=== PATIENT | male | born 1965 | race Caucasian/White ===

== ENCOUNTER → 2016-07-09 | Outpatient (CLI) | payer BC ==
[~2016-07-09] MED LIST: ALLO100T PO; ASPI81TA28 PO; CARV25TA2 PO; CLOP1TAB15 PO; ERGO500037 PO; FENO48TA9 PO; HYDR25TA4 PO; HYG/25 PO; IBUP-1427 PO; INDO-24 PO; INSDGI SC; ISOS30TA3 PO; LEVO100T7 PO; NITR0.4S UT; NVLGI SC; OXYC-57 PO; ROSU40TA PO
[2016-07-09 17:42] LABS: HEMATOCRIT 36.2 % (42-52); MEAN CORPUSCULAR HEMOGLOBIN 29.7 pg (25-34); MEAN CORPUSCULAR HGB CONC 34.5 g/dl (32-36); MEAN PLATELET VOLUME 10.5 fL (7.4-10.4); PLATELET COUNT 161 K/uL (130-400); RED BLOOD COUNT 4.21 M/uL (4.7-6.1); WHITE BLOOD COUNT 5.17 K/uL (4.8-10.8)
[2016-07-09 17:47] LABS: URINE APPEARANCE CLEAR (CLEAR); URINE BILIRUBIN NEG (NEG); URINE COLOR YELLOW; URINE NITRITE NEG (NEG); URINE SPECIFIC GRAVITY 1.021 (1.000-1.030); UROBILINOGEN NEG (NEG)
[2016-07-09 17:59] LABS: MANUAL MICROSCOPIC REQUIRED? NO; REVIEW REQ? NO
[2016-07-09 18:08] LABS: BLOOD UREA NITROGEN 29 mg/dl (7-18); GLUCOSE 276 mg/dl (70-99)
[2016-07-09 18:09] LABS: ALT/SGPT 33 U/L (12-78); BUN/CREATININE RATIO 13.6 (10-20); CALCIUM 8.9 mg/dl (8.5-10.1); CARBON DIOXIDE 28 mmol/L (21-32); CHLORIDE 103 mmol/L (98-107); POTASSIUM 3.5 mmol/L (3.5-5.1); SODIUM 142 mmol/L (136-145); URIC ACID 7.5 mg/dl (2.6-7.2)
[2016-07-09 18:12] LABS: ALB/GLOB RATIO 1.1 (0.9-2); ALKALINE PHOSPHATASE 176 U/L (45-117); AST/SGOT 29 U/L (15-37); URINE PROTIEN/CREAT RATIO 0.6 (0-0.2); URINE TOTAL PROTEIN 53.7 mg/dl (0-11.9)
== END | disposition home or self-care (01) ==
LOC: C.LAB1850 17:06
PROVIDERS: ATTEND Internal Medicine Nephrology
DX: I12.9 Hypertensive chronic kidney disease with stage 1 through stage 4 chronic kidney disease, or unspecified chronic kidney disease (principal); N18.3 Chronic kidney disease, stage 3 (moderate); R80.9 Proteinuria, unspecified; E55.9 Vitamin D deficiency, unspecified; D64.9 Anemia, unspecified; N25.81 Secondary hyperparathyroidism of renal origin

== ENCOUNTER 2016-09-23 12:47 | Observation (INO) | payer BC, OTHER ==
[2016-09-23] VITALS (11 sets, daily range): BP systolic 112–146; BP diastolic 60–83; PULSE 62–72; TEMP 36.6–36.8; O2SAT 95–99; BMI 32.6
[~2016-09-23] VITALS: Ht 182.9 cm; Wt 104.8 kg
[~2016-09-23 12:47] MED LIST changes: -ERGO500037 PO; -FENO48TA9 PO; -HYG/25 PO; -INDO-24 PO; -ISOS30TA3 PO; -LEVO100T7 PO; -NITR0.4S UT; -OXYC-57 PO
[2016-09-23 13:22] LABS: HEMATOCRIT 39.7 % (42-52); MEAN CELL VOLUME 85.2 fL (80-100); MEAN CORPUSCULAR HEMOGLOBIN 29.8 pg (25-34); MEAN PLATELET VOLUME 10.5 fL (7.4-10.4); PLATELET COUNT 217 K/uL (130-400); RED BLOOD COUNT 4.66 M/uL (4.7-6.1); WHITE BLOOD COUNT 7.16 K/uL (4.8-10.8)
[2016-09-23 13:40] LABS: BUN/CREATININE RATIO 14.6 (10-20); CALCIUM 9.7 mg/dl (8.5-10.1); POTASSIUM 3.8 mmol/L (3.5-5.1)
[2016-09-23 13:45] LABS: CKMB/CK RATIO 5.2 (0-3.0)
--- NOTE | 2016-09-23 13:45 | DIAGNOSTIC IMAGING REPORT ---
CHEST ONE VIEW PORTABLE HISTORY: failed stress test COMPARISON: Chest 11/05/2010. FINDINGS: The lungs are clear. Cardiac silhouette is normal in size. No pleural effusions. No pneumothorax. IMPRESSION: No acute process. Electronically signed by: Leeroy Walters M.D. 09/23/2016 1:43 PM Dictated Date/Time: 09/23/2016 1:43 PM
[2016-09-23] MEDS ORDERED: FENTANYL CITRATE INJ 50 MCG/1 ML 2 ML VIAL ONE (13:54)
[2016-09-23] MEDS ORDERED: NiCARDipine HCL INJ 2.5 MG/ML 10 ML AMP ONE (13:54)
[2016-09-23] MEDS ORDERED: HEPARIN SOD (PORCINE) 1000 UNIT/ML 10 ML VIAL ONE (13:54)
[2016-09-23] MEDS ORDERED: NITROGLYCERIN/D5W 100MCG/ML 20ML SYR ONE (13:55)
[2016-09-23] MEDS ORDERED: MIDAZOLAM HCL 1 MG/ML 2ML VIAL ONE (13:55)
--- NOTE | 2016-09-23 14:15 | Procedure Note ---
Pre-Mod Sedation Assessment General Date of Moderate Sedation: Sep 23, 2016. Vital Signs: Vital Signs Past 12 Hours Date Time Temp Pulse Resp B/P Pulse Ox O2 Delivery O2 Flow Rate FiO2 09/23/16 13:45 66 09/23/16 12:56 36.8 70 20 145/78 98 Room Air Review Cardiovascular: regular rate, rhythm, no edema, no gallop Abdomen: normal bowel sounds, non tender Lungs: chest non-tender, lungs clear Pre-Sedation Airway Assessment Oral Cavity: WNL Able to Visualize Vocal Cords: Yes Short Thick Neck: No Hx of Sleep Apnea: No Smoking Status: Never Smoker Mallampati Classification: Class II ASA Classification: Class II Procedure Planning Contraindications-for Mod Sed: None Notes The planned sedation has been discussed with the patient and consent obtained. I have identified the patient, determined the appropriateness of sedation and have assessed the patient immediately prior to the procedure. All medicine(s) and interventions are by my order.
[2016-09-23] MEDS ORDERED: CLOPIDOGREL BISULFATE 300 MG TAB PO ONE (15:21)
[2016-09-23] MEDS ORDERED: ONDANSETRON INJ 2 MG/ML 2 ML VIAL IV PRN (15:45)
[2016-09-23] MEDS ORDERED: ACETAMINOPHEN 325 MG TAB PO PRN (15:45)
[2016-09-23] MEDS: SODIUM CHLORIDE 0.9% 1000ML 1,000 ML IV SCH ×2 (15:45→23:38)
[2016-09-23] MEDS ORDERED: GLUCAGON FOR INJ 1 MG VIAL SQ PRN (16:30)
[2016-09-23] MEDS ORDERED: GLUCOSE 40% GEL 15 GM TUBE PO PRN (16:30)
[2016-09-23] MEDS ORDERED: DEXTROSE 50% 50 ML SYR IV PRN (16:30)
[2016-09-23] MEDS ORDERED: GLUCOSE 10 TABS/TUBE PO PRN (16:30)
[2016-09-23] MEDS ORDERED: NURSING VERBAL MED ORDER ONE (17:45)
[2016-09-23] MEDS: INSULIN ASPART 100 UNITS/ML 3 ML PEN SC SCH (18:57)
[2016-09-23] MEDS ORDERED: IV FLUIDS COMPLETED PRN (20:00)
[2016-09-23] MEDS: CARVEDILOL 25 MG TAB PO SCH (20:52)
[2016-09-23] MEDS ORDERED: INSULIN GLARGINE SOLOSTAR 100 UNITS/ML 3 ML PEN SC SCH (21:00)
[2016-09-23] MEDS ORDERED: ROSUVASTATIN CALCIUM 20 MG TAB PO SCH (21:00)
--- NOTE | 2016-09-23 22:17 | Procedure Note ---
Post-Mod Sedation Assessment General Date of Moderate Sedation Sep 23, 2016. Vital Signs: Vital Signs Past 12 Hours Date Time Temp Pulse Resp B/P Pulse Ox O2 Delivery O2 Flow Rate FiO2 09/23/16 13:45 66 09/23/16 12:56 36.8 70 20 145/78 98 Room Air Review - Discharge Criteria Vital Signs Stable: Yes Alert/Oriented/Conversant: Yes Returned to Baseline Mental St: Yes Nausea Absent/Minimal: Yes Pain/Discomfort/Absent/Minimal: Yes Normal/Baseline Respirations: Yes Active Bleeding?: No Pt Received D/C Instructions: N/A Prescriptions Given: None Specific Proced. D/C Criteria Distal Pulses Present (Cardiac: Yes Groin site assessed-Card Cath: No Voided Prior To Discharge: No Discharged Patients Adult Escort/Transportation: Yes
--- NOTE | 2016-09-23 22:58 | Cardiac Catheterization ---
Procedure Note Procedure Date Sep 23, 2016. Pre-Procedure Diagnosis Angina, Positive Stress Test AUC Score 8 Post-Procedure Diagnosis Severe CAD Procedure(s) Performed Coronary Angiography, Left Heart Cath Accounting Professional Dr. Pringle Pattern Checker(s) Brook Estimated Blood Loss 15 Medication(s) Fentanyl, Heparin, Nitroglycerin, Versed, Lidocaine 1% Summary of Findings Indication: Accelerating angina/Positive stress test suggestive of possible multivessel disease Access: 6Fr Right Radial Artery Catheters: Grzegorz, AR1 guide Findings: LM - Luminal irregularities LAD - Proximal diffuse 30-40% disease, stent in mid segment patent with minimal ISR, distal vessel mild diffuse disease and tapers to apex. Circumflex - Complete/subtotal proximal occlusion at the take-off of OM1. TIMI1 flow antegrade past stenosis into underfilled bifurcating OM2. OM1 is small vessel with subtotal occlusion proximally RCA - Dominant, 20-30% proximal, patent mid segment stent with 20-30% ISR. Mild diffuse distal segment disease. Small PDA with 30% ostial disease. R-PAV with 90% stenosis prior to take-off of PLB1. Right to left collaterals to OMs via R-PLBs LVEDP - 12 -- PCI -- Both R-PAV and potentially circumflex HEALTH AND SAFETY DIRECTOR appeared potentially amenable to PCI. Decision made to proceed with R-PAV PCI only today in order to avoid excessive contrast with CKD. Antithrombotic therapy: Heparin Procedure: RCA cannulated with AR1 guide BMW wire passed across lesion into distal PLB PAV lesion predilated with 2.0 compliant balloon Dilated lesion stented with 2.25 x 18 Resolute DONNA Stent post-dilated with 2.5 noncompliant balloon IC vasodilators administered for spasm Post procedure BLADIMIR 3 flow, stent well expanded with minimal residual stenosis and no apparent cardiac complications. Arterial Closure: TR Band Summary: 1. Severe 2 vessel coronary artery disease - Complete/subtotal occlusion of proximal circumflex - 90% stenosis in R-PAV 2. Normal intracardiac filling pressure 3. Successful PCI of R-PAV with 2.25 x 18 Resolute DONNA Recommendations: Admit to PCU for monitoring overnight. Loaded with plavix in the canvas shop laborer Continue dual-antiplatelet therapy with ASA/Plavix for 1 year Fluids overnight. Follow-up SCr in AM Continue home antihypertensives, insulin and high-dose statin R-PAV stented today as thought to be less complex lesion and as result likely to require less contrast after diagnostic angiograms today. There appears to be a small channel across the proximal circumflex lesion and will bring back in 1-2 weeks for staged PCI of circumflex lesion. Hemodynamics Rest Ao: 106/74/88 Final Ao: 100/70/83 LV: 119/12 Recommendations PCI without planned CABG Specimens None Radiation Exposure (mGy) 3734 Contrast (mls) 135 Visi Fluids (cc crystalloids) 111 NS Drains none Anesthesia moderate. Start 14:27 - End 15:30 Procedural Complication(s) None Disposition PCU ACC Data Cardiac Status Clinical evaluation leading to the procedure CAD Presntation: Unstable angina, Positive Stress Test Anginal Classification: CCS III Heart Failure: No, NYHA Class: CCS I Cardiogenic Shock w/in 24Hrs: No Cardiac Arrest w/in 24Hrs: No Imaging studies past 6 months: Yes Stress studies past 6 months: Yes Standard Exercise Stress Test: No Stress Echocardiogram: Yes - Positive, Risk/Extent of Ischemia (High) Stress Testing w/SPECT MPI: No Cardiac CTA: No Coronary Anatomy Dominant: Right Left Main (% Stenosis): Normal LAD (% Stenosis): Proximal (30-40) Circumflex (% Stenosis): Proximal (99%) RCA (% Stenosis): Proximal (20-30), Mid (20-30) R PDA (% Stenosis): Ostial (20) R PL2 (% Stenosis): Proximal (90) Diagnostic Physician's Name: Yunior Pringle MD Status: Elective Closure Device Percutaneous Entry Location: Radial Closure Device: Radial Band Recommendations: PCI without planned CABG PCI Indication: Unstable Angina, + Stress Test Lesion Segment Name: R-PAV Culprit Artery: Yes Stenosis Prior to Rx (%): 90 Chronic Total Occlusion: No IVUS: No FFR: No Pre-Procedure BLADIMIR Flow: 3 Previously Treated Lesion: No Lesion Complexity: Non-High/Non-C Lesion Length (mm): 15 Thrombus Present: No Bifurcation Lesion: Yes Guidewire Across Lesion: Yes Guidewire: Stenosis Post-Procedure (%): 0 Post-Procedure BLADIMIR Flow: 3 Device(s) Deployed: Yes Intraprocedure Events Significant Dissection: No Perforation: No
--- NOTE | 2016-09-23 22:59 | History & Physical Bridge Note ---
H&P Re-Evaluation Bridge Note: I have examined the patient, reviewed the History & Physical and in the interval since the performance of the History & Physical I have noted the following changes of clinical significance: No changes noted
[2016-09-23] MEDS ORDERED: CLOP1TAB15 PO (23:18)
[2016-09-23] MEDS ORDERED: ISOS30TA3 PO (23:18)
[2016-09-24 00:01] VITALS: O2SAT 97
[2016-09-24 04:33] VITALS: BP 107/67; PULSE 59; TEMP 36.7; O2SAT 95
[2016-09-24 05:36] LABS: BASO % 0.6 %; BASO ABS # 0.03 K/uL (0-0.2); COMPLETE YES; EOS % 1.7 %; HEMATOCRIT 35.4 % (42-52); IG% 0.4 %; LYMPH % 28.8 %; LYMPH ABS # 1.54 K/uL (1.2-3.4); MEAN CELL VOLUME 86.6 fL (80-100); MEAN CORPUSCULAR HEMOGLOBIN 29.3 pg (25-34); MEAN CORPUSCULAR HGB CONC 33.9 g/dl (32-36); MONO % 6.5 %; PLATELET COUNT 168 K/uL (130-400); RED BLOOD COUNT 4.09 M/uL (4.7-6.1); WHITE BLOOD COUNT 5.35 K/uL (4.8-10.8)
[2016-09-24 06:04] LABS: BUN/CREATININE RATIO 13.9 (10-20); CALCIUM 8.4 mg/dl (8.5-10.1); CREATININE 1.9 mg/dl (0.60-1.40); POTASSIUM 3.5 mmol/L (3.5-5.1)
[2016-09-24] MEDS: INSULIN ASPART 100 UNITS/ML 3 ML PEN SC SCH ×2 (07:40→11:00)
[2016-09-24] MEDS: CARVEDILOL 25 MG TAB PO SCH (07:42)
[2016-09-24 08:12] VITALS: BP 111/65; PULSE 59; TEMP 36.5; O2SAT 95
[2016-09-24] MEDS ORDERED: ASPIRIN 81 MG ECTAB PO SCH (09:00)
[2016-09-24] MEDS ORDERED: ALLOPURINOL 100 MG TAB PO SCH (09:00)
[2016-09-24] MEDS ORDERED: CLOPIDOGREL BISULFATE 75 MG TAB PO SCH (09:00)
--- NOTE | 2016-09-24 09:30 | Discharge Instructions ---
Discharge Instructions Procedure Procedure Date: Sep 23, 2016. Reason for Visit: CAD. Discharge Discharge Date: Sep 23, 2016. Discharge Diagnosis: Coronary Artery Disease Last Recorded Wt (Kilograms): 109.000 Anesthesia Post Anesthesia Instructions: If you have had General Anesthesia or IV Sedation: * Do not drive today. * Resume driving when surgeon permits. * Do not make important decisions or sign legal documents today. * Call surgeon for: 1. Temperature elevations greater than 101 degrees F. 2. Uncontrollable pain. 3. Excessive bleeding. 4. Persistent nausea and vomiting. 5. Medication intolerance (nausea, vomiting or rash). * For nausea and vomiting use only clear liquids such as: tea, soda, bouillon until nausea subsides, then gradually increase diet as tolerated. * If you have any concerns or questions, call your surgeon's office. If physician is unavailable and it is an emergency, call 911 or go to the nearest emergency room. Instructions Activity Recommendations: limitations as noted below Recommended Home Diet: resume previous diet Allergies: Coded Allergies: Lisinopril (Verified Allergy, Unknown, cough, 08/14/14) Follow Up Additional Instructions: ACTIVITY RECOMMENDATIONS: It is common to feel weak and fatigue for a few days. * Do not drive or operate any motorized equipment for the next three days. * Limit stair usage (2 or 3 trips a day only) for the next three days. * Do not lift anything heavier than 10 pounds for the next three days. * Do not engage in vigorous exercise or any sports for the next five days. * You may shower the day after your procedure, but do not immerse the area for three days. Cleanse the site gently with soap and water. SPECIAL CARE INSTRUCTIONS: * You may replace the pressure dressing or band-aid the morning after the procedure. * After your procedure, it is normal to have a small bruise or small lump at the site. Examine your site daily for any change in the bruise or lump, redness, swelling, drainage or numbness. Notify your doctor if any change. BLEEDING: * If there is a small amount of bleeding at the site, lie down and apply firm pressure with a clean cloth for ten minutes. When the bleeding stops, lie quietly keeping the procedure limb straight for six hours. Notify your doctor as soon as possible. * If the bleeding does not stop after ten minutes or if there is a large amount of bleeding or spurting, call 911 immediately. Continue to lie down and hold firm pressure until help arrives. SKIN IRRITATION: * You may experience some redness and/or swelling in the area where radiation was administered. If any skin irritation occurs, please contact your family physician. FOLLOW UP VISIT: Keep any scheduled doctor appointments. Follow-up with: Repeat kidney function labs next week If stable will arrange for return for attempted PCI of circumflex artery in 1-2 weeks Kaitlin Wood Recommendations: Call your doctor if: * Temperature above 101 degrees * Pain not relieved by pain medicine ordered * There is increased drainage or redness from any incision * You have any unanswered questions or concerns. Your Doctors Instructions noted above were prepared by provider Sony Pringle. Patient Signature Section: Patient Instructions Signature Page Michele Ayers Patient (or Guardian) Signature/Date: I have read and understand the instructions given to me by my caregivers. Caregiver/RN/Doctor Signature/Date: The above-named patient and/or guardian has received patient instructions on this date. + Original Patient Signature Page (only) stays with chart. Please make copy for patient.
--- NOTE | 2016-09-24 09:42 | Discharge Summary ---
Discharge Summary Admission Date: Sep 23, 2016 at 15:41 Discharge Disposition: Home Primary Diagnosis: CAD, angina with positive stress test Procedures: Left heart catheterization Discharge Instructions Last Recorded Wt (Kilograms): 109.000 Activity Recommendations: limitations as noted below, lifting limitation (no greater than 10 pounds next 2 days), limitations (Avoid strenuous activity until next heart cath) Return to School/Work: no limitations Diet At Discharge: low cholesterol Allergies: Coded Allergies: Lisinopril (Verified Allergy, Unknown, cough, 08/14/14) Home Health Services: none Special Care: Call your doctor if: * Temperature above 101 degrees * Pain not relieved by pain medicine ordered * There is increased drainage or redness from any incision * You have any unanswered questions or concerns. Avoid all tobacco products. If you need help to stop smoking, call [facility] FREE QUITLINE at . This is a free call. Admission HPI Patient is a 50 year old male with a medical history significant for CAD s/p RCA and LAD stents in 2010. Presented with exertional chest tightness and dyspnea x 1 month. Underwent stress echocardiogram in the office yesterday which was abnormal. He was referred to [facility] for left heart catheterization. Admission Physical Exam Head: normocephalic, atraumatic Neck: supple, no JVD, no carotid bruits Lungs: Auscultation: breath sounds normal, no wheezing, no rales/crackles, no rhonchi Cardiovascular: Heart Auscultation: RRR, normal S1, normal S2, no murmurs, no rubs, no gallops Extremities: no cyanosis, no edema Hospital Course Patient was seen in his room today. He reports feeling well and has no acute complaints. No events overnight. Underwent left heart cath yesterday with Dr. Pringle which showed the followin. LM luminal irregularities 2. LAD proximal diffuse 30-40% disease, stent in mid segment with patent minimal ISR, distal vessel mild diffuse disease 3. Circumflex complete/subtotal proximal occlusion at the take-off of OM1. BLADIMIR flow 1 antegrade past stenosis into underfilled bifurcating OM2. OM1 is small vessel with subtotal occlusion proximally 4. RCA: Dominant 20-30% proximal, patent mid segment stent with 20-30% ISR. Mild diffuse distal segment disease. Small PDA with 30% ostial disease. R-PAV with 90% stenosis prior to take off of PLBi. Right to left collaterals to OMs via R-PLBs Successful PCI of R-PAV with 2.25 x 18 Resolute DONNA Given CKD it was decided to only intervene upon the R-PAV to avoid excessive contrast. We will plan to repeat cardiac catheterization in 1-2 weeks for staged PCI of circumflex lesion. Exam: General: Appears well in no acute distress. HEENT: Unremarkable. Neck: No JVD. Lungs: Clear to auscultation. Cardiac: RRR, no murmur, gallop or rub. Extremities: No cyanosis, clubbing or edema. R radial access site without bleeding, hematoma or infection. Neuro: Alert and oriented. No lateralizing changes. Cr is stable today at 1.9. Hgb 12.0 Telemetry shows 8 beat run of NSVT this morning. K in normal range, will check stat Mg before discharge.
[2016-09-24 10:30] VITALS: Ht 182.9 cm; Wt 104.8 kg
[2016-09-24 11:05] VITALS: BP 111/65; PULSE 59; TEMP 36.5; O2SAT 95
[2016-10-05] MEDS ORDERED: LEVO100T7 PO (08:23)
[2016-10-05] MEDS ORDERED: NITR0.4S UT (08:23)
[2016-10-05] MEDS ORDERED: INDO-24 PO (08:23)
[2016-10-05] MEDS ORDERED: ERGO500037 PO (08:23)
[2016-10-05] MEDS ORDERED: HYG/25 PO (08:23)
[2016-10-05] MEDS ORDERED: FENO48TA9 PO (08:23)
--- NOTE | 2016-10-08 14:02 | HISTORY & PHYSICAL EXAMINATION ---
DATE OF ADMISSION: 09/23/2016 HISTORY OF PRESENT ILLNESS: Mr. Ayers is a 50-year-old man with a history of coronary artery disease, status post prior stent placement to his proximal LAD and RCA in November of 2010, resolved ischemic cardiomyopathy, hypertension, dyslipidemia, type 2 diabetes and chronic kidney disease with baseline creatinine around 1.9, who was transferred from outpatient cardiology clinic due to a grossly positive stress test. The patient has been seen by nurse practitioner, Sherrie Alexis recently and the patient had endorsed at that time worsening typical chest pain for the last month. As a result, had a stress test today, on which the patient developed diffuse ST depressions early into exercise with multiple focal wall motion abnormalities on stress suggestive of multivessel disease. ST depressions persisted for more than 5 minutes in recovery and the patient was instructed to present to the ED. In the ED, the patient was hemodynamically stable. Repeat labs showed stable creatinine and decision was made to proceed with cardiac catheterization. PAST MEDICAL HISTORY: 1. Coronary artery disease, status post prior PCIs. 2. Type 2 diabetes, on large amounts of insulin. 3. Chronic kidney disease with baseline creatinine of 1.9. 4. Dyslipidemia. 5. Hypertension. 6. Ischemic cardiomyopathy, now resolved. 7. Diabetic retinopathy. 8. Chronic low back pain. 9. Anemia. 10. Vitamin D deficiency. FAMILY HISTORY: Father had coronary artery disease and diabetes. Mother is in good health. SOCIAL HISTORY: Denies alcohol, tobacco or illicit drugs. He is . HOME MEDICATIONS: Include chlorthalidone, vitamin D, aspirin, carvedilol, Nitrostat, Lantus, Crestor, allopurinol, indomethacin, fenofibrate, and levothyroxine. ALLERGIES: LISINOPRIL. PHYSICAL EXAMINATION: VITAL SIGNS: Temperature 36.5, pulse 59, blood pressure 111/65, and satting 95% on room air. GENERAL: The patient appears to be comfortable, in no acute distress. HEENT: Sclerae are anicteric. Oropharynx is clear. Mucous membranes are moist. NECK: Supple, no lymphadenopathy. LUNGS: Clear to auscultation bilaterally. HEART: Irregular rhythm with no murmurs, rubs or gallops. ABDOMEN: Soft, nontender, and nondistended with positive bowel sounds. EXTREMITIES: Warm. He had no significant lower extremity edema and intact distal pulses. SKIN: Shows no rashes or lesions. NEUROLOGIC: Nonfocal. PSYCHIATRIC: Alert and oriented x3. LABORATORY DATA: Stress test as discussed above. Hemoglobin of 13.9 and platelets of 217. Sodium 142, potassium 4.5, BUN 26, and creatinine of 1.9. Initial troponin was negative. IMPRESSION AND PLAN: 1. High-risk positive stress test. 2. Known history of coronary artery disease, status post prior percutaneous coronary interventions to LAD and RCA. 3. Type 2 diabetes, on insulin. 4. Chronic kidney disease with baseline creatinine of 1.9. Patient is here today with high-risk stress test earlier in the afternoon at [facility] outpatient cardiology office. In the setting of this test and the patient's known history of coronary artery disease, I agree with proceeding with cardiac catheterization. We will plan to do procedure via right radial artery with further recommendations pending findings. LENA
[2017-01-28] MEDS ORDERED: OXYC-57 PO (18:18)
== END 2016-09-24 11:30 | disposition home or self-care (01) ==
LOC: C.EDB 12:50 → C.2T 15:41
PROVIDERS: ADMIT Internal Medicine Interventional Cardiology; ATTEND Internal Medicine Interventional Cardiology
DX: I25.119 Atherosclerotic heart disease of native coronary artery with unspecified angina pectoris (principal); I12.9 Hypertensive chronic kidney disease with stage 1 through stage 4 chronic kidney disease, or unspecified chronic kidney disease; N18.9 Chronic kidney disease, unspecified; I25.5 Ischemic cardiomyopathy; E78.5 Hyperlipidemia, unspecified; E11.319 Type 2 diabetes mellitus with unspecified diabetic retinopathy without macular edema; Z79.4 Long term (current) use of insulin; Z82.49 Family history of ischemic heart disease and other diseases of the circulatory system; Z83.3 Family history of diabetes mellitus

== ENCOUNTER → 2016-09-30 | Outpatient (CLI) | payer BC ==
[~2016-09-30] MED LIST changes: +ERGO500037 PO; +FENO48TA9 PO; +HYG/25 PO; -IBUP-1427 PO; +INDO-24 PO; +ISOS30TA3 PO; +LEVO100T7 PO; +NITR0.4S UT; +OXYC-57 PO
[2016-09-30 14:46] LABS: BLOOD UREA NITROGEN 20 mg/dl (7-18); BUN/CREATININE RATIO 10.2 (10-20); CALCIUM 8.9 mg/dl (8.5-10.1); CARBON DIOXIDE 29 mmol/L (21-32); CHLORIDE 100 mmol/L (98-107); GLUCOSE 363 mg/dl (70-99); POTASSIUM 3.7 mmol/L (3.5-5.1); SODIUM 137 mmol/L (136-145)
[2016-09-30 15:02] LABS: BETA-HYDROXYBUTYRATE 0.63 mg/dL (0.2-2.81)
== END | disposition home or self-care (01) ==
LOC: C.LAB 13:30 → EDSTATUS 10-01 07:30
PROVIDERS: ATTEND Internal Medicine Interventional Cardiology
DX: Z01.810 Encounter for preprocedural cardiovascular examination (principal)

== ENCOUNTER 2016-10-05 10:14 | Observation (INO) | payer BC ==
[~2016-10-05] VITALS: Ht 182.9 cm; Wt 107.4 kg
[2016-10-05] VITALS (10 sets, daily range): BP systolic 111–143; BP diastolic 63–80; PULSE 55–66; TEMP 36.5–36.8; O2SAT 95–97; Ht 182.9 cm; Wt 107.4 kg
[~2016-10-05 10:14] MED LIST changes: -OXYC-57 PO
[2016-10-05] MEDS ORDERED: ISOS30TA3 PO (10:40)
--- NOTE | 2016-10-05 11:43 | History and Physical ---
History & Physical Date Oct 05, 2016. Chief Complaint chest pain History of Present Illness The patient is a 51 year old male with complaints of stable angina. Patient with history of DM, CKD (baseline SCr around 2.0) CAD initially diagnosed in 11/2010 at which time underwent PCI with stent placement to his proximal LAD and RCA. LV function reduced at that time but has since resolved. Seen in cardiology clinic recently with worsening chest intermittent chest pain for months. Underwent stress test which had high risk finding and was suggestive of multivessel CAD. Sent to laborer heading for urgent catheterization which revealed a subtotal proximal occlusion in the circumflex and R-PAV with a 90% stenosis. With patients CKD decision made to proceed with PCI to R-PAV with placement of a 2.25 x 18 Resolute. Patient brought back today for staged PCI of circumflex. Past Medical/Surgical History Medical Problems: (1) CAD (coronary artery disease) (2) Diab W Ophthal Manifest, Type Ii Or Unspec Type, Uncntrld (3) Diabetic peripheral neuropathy associated with type 2 diabetes mellitus (4) Foot deformity (5) Gout (6) Heart disease (7) History of diabetic ulcer of foot (8) Hyperlipidemia Nec/Nos (9) Hypertension Nos (10) Kidney stone (11) Loss of sensation Additional History Hepatic Disease: No Endocrine Disorder: Yes Kidney Disease: Yes Hypertension: Yes Heart Disease: Yes Bleeding Tendencies: No Infectious Diseases: No Allergies Coded Allergies: Lisinopril (Verified Allergy, Unknown, cough, 08/14/14) Home Medications Scheduled Allopurinol (Zyloprim), 300 MG PO DAILY Aspirin (Aspirin Ec), 81 MG PO DAILY Carvedilol (Coreg), 25 MG PO BID Chlorthalidone (Hygroton), 1 TAB PO DAILY Clopidogrel (Plavix), 75 MG PO DAILY Ergocalciferol (Vitamin D 52061 Unit), 1 CAP PO WK Fenofibrate (Tricor), 1 TAB PO DAILY Indomethacin (Indocin), 50 MG PO TID Insulin Aspart (Novolog), 0 SC AC Insulin Glargine (Lantus), 50 UNITS SC AMPM Isosorbide Mononitrate Ext Rel (Imdur Ext Rel), 1 TAB PO DAILY Levothyroxine Sodium (Levothyroxine Sodium), 1 TAB PO DAILY Nitroglycerin (Nitrostat), 0.4 MG UT PRN Rosuvastatin Calcium (Crestor), 40 MG PO HS Physical Examination Skin: warm/dry Eyes: normal inspection Respiratory/Chest: lungs clear Cardiovascular: regular rate, rhythm, no edema, no murmur Abdomen / GI: normal bowel sounds Extremities: normal inspection Neurologic/Psych: alert, oriented x 3 Diagnosis Stable Angina Severe multivessel CAD ASA Classification: ASA Class III Plan of Treatment Proceed to laborer heading for PCI of circumflex Artery
[2016-10-05] MEDS ORDERED: NiCARDipine HCL INJ 2.5 MG/ML 10 ML AMP ONE (11:50)
[2016-10-05] MEDS ORDERED: MIDAZOLAM HCL 1 MG/ML 2ML VIAL ONE (11:50)
[2016-10-05] MEDS ORDERED: HEPARIN SOD (PORCINE) 1000 UNIT/ML 10 ML VIAL ONE ×2 (11:50→12:49)
[2016-10-05] MEDS ORDERED: FENTANYL CITRATE INJ 50 MCG/1 ML 2 ML VIAL ONE (11:50)
[2016-10-05] MEDS ORDERED: NITROGLYCERIN/D5W 100MCG/ML 20ML SYR ONE (11:51)
--- NOTE | 2016-10-05 11:57 | Procedure Note ---
Pre-Mod Sedation Assessment General Date of Moderate Sedation: Oct 05, 2016. Vital Signs: Vital Signs Past 12 Hours Date Time Temp Pulse Resp B/P Pulse Ox O2 Delivery O2 Flow Rate FiO2 10/05/16 10:30 36.5 66 16 138/80 95 Room Air Review Cardiovascular: regular rate, rhythm, no edema Abdomen: normal bowel sounds, non tender, soft Lungs: chest non-tender, lungs clear Airway Class: II Pre-Sedation Airway Assessment Oral Cavity: WNL Able to Visualize Vocal Cords: Yes Short Thick Neck: No Hx of Sleep Apnea: No Smoking Status: Never Smoker Mallampati Classification: Class II ASA Classification: Class III Procedure Planning Contraindications-for Mod Sed: None Yes Notes The planned sedation has been discussed with the patient and consent obtained. I have identified the patient, determined the appropriateness of sedation and have assessed the patient immediately prior to the procedure. All medicine(s) and interventions are by my order.
[2016-10-05] MEDS ORDERED: CLOPIDOGREL BISULFATE 300 MG TAB PO ONE (13:58)
[2016-10-05] MEDS ORDERED: ACETAMINOPHEN 325 MG TAB PO PRN (14:15)
[2016-10-05] MEDS ORDERED: NITROGLYCERIN 0.4 MG SL PER TAB CHARGE UT SCH (14:15)
[2016-10-05] MEDS ORDERED: ONDANSETRON INJ 2 MG/ML 2 ML VIAL IV PRN (14:15)
[2016-10-05] MEDS ORDERED: GLUCOSE 40% GEL 15 GM TUBE PO PRN (14:30)
[2016-10-05] MEDS ORDERED: DEXTROSE 50% 50 ML SYR IV PRN (14:30)
[2016-10-05] MEDS ORDERED: GLUCAGON FOR INJ 1 MG VIAL SQ PRN (14:30)
[2016-10-05] MEDS ORDERED: GLUCOSE 10 TABS/TUBE PO PRN (14:30)
--- NOTE | 2016-10-05 14:33 | Procedure Note ---
Post-Mod Sedation Assessment General Date of Moderate Sedation Oct 05, 2016. Vital Signs: Vital Signs Past 12 Hours Date Time Temp Pulse Resp B/P Pulse Ox O2 Delivery O2 Flow Rate FiO2 10/05/16 14:05 55 18 118/67 96 Room Air 10/05/16 14:00 58 18 111/66 96 Room Air 10/05/16 13:55 57 18 125/69 96 Room Air 10/05/16 13:50 59 18 125/67 99 Nasal Cannula 3 10/05/16 10:30 36.5 66 16 138/80 95 Room Air Review - Discharge Criteria Vital Signs Stable: Yes Alert/Oriented/Conversant: Yes Returned to Baseline Mental St: Yes Nausea Absent/Minimal: Yes Pain/Discomfort/Absent/Minimal: Yes Normal/Baseline Respirations: Yes Active Bleeding?: No Pt Received D/C Instructions: No Prescriptions Given: None Specific Proced. D/C Criteria Distal Pulses Present (Cardiac: Yes Groin site assessed-Card Cath: N/A Voided Prior To Discharge: N/A Discharged Patients Adult Escort/Transportation: Yes
[2016-10-05] MEDS ORDERED: IV FLUIDS COMPLETED PRN (14:45)
[2016-10-05] MEDS: INSULIN ASPART 100 UNITS/ML 3 ML PEN SC SCH ×2 (16:15→20:56)
[2016-10-05] MEDS: SODIUM CHLORIDE 0.9% 1000ML 1,000 ML IV SCH ×2 (16:27→20:25)
[2016-10-05] MEDS ORDERED: PNEUMOCOCCAL ADMINISTRATION CHARGE ONE (16:30)
[2016-10-05] MEDS ORDERED: PNEUMOCOCCAL POLYSACCHARIDES 25 MCG/0.5 ML VIAL/SYR IM. ONE (16:30)
[2016-10-05] MEDS ORDERED: INFLUENZA VIRUS QUAD VACCINE 0.5 ML SYR IM. ONE (16:45)
[2016-10-05] MEDS ORDERED: INFLUENZA ADMINISTRATION CHARGE ONE (16:45)
[2016-10-05] MEDS: CARVEDILOL 25 MG TAB PO SCH (20:59)
[2016-10-05] MEDS ORDERED: ROSUVASTATIN CALCIUM 20 MG TAB PO SCH (21:00)
[2016-10-05] MEDS: INSULIN GLARGINE SC SCH (21:01)
--- NOTE | 2016-10-05 22:27 | Cardiac Catheterization ---
Procedure Note Procedure Date Oct 05, 2016. Pre-Procedure Diagnosis Positive Stress Test, CAD AUC Score 8 Post-Procedure Diagnosis Severe CAD, Successful PCI Procedure(s) Performed Coronary Angiography, Drug Eluting Stent Numerical Control Programmer Dr. Pringle Classified Advertising Clerk(s) Brook Estimated Blood Loss 20 Medication(s) Clopidogrel, Fentanyl, Heparin, Nicardipine, Nitroglycerin, Versed, Lidocaine 1% Summary of Findings Indication: Accelerating angina/high-risk stress test/Staged PCI of Circumflex Access: 6Fr Right Radial Artery Catheters: EBU 3.5 Findings: For full coronary angiography details see cath report from 09/23/2016. Patient found to have a short occlusion/subtotal occlusion of his proximal circumflex. Midsegment fills slowly via antegrade flow. Distal large OM2 fills via left to left and right to left collaterals. R-PAV fixed at time of diagnostic cath. Current intervention staged due to CKD. PCI: Antithrombotic therapy: Heparin, Clopidogrel Procedure: LM cannulated with EBU 3.5 guide Whisper wire with the aid of an OTW 2.0 balloon eventually passed across lesion into OM2. Intraluminal position confirmed via injection through OTW balloon. Whisper wire exchanged for a Mailman wire. Predilation of proximal-mid circumflex into OM2 with 2.0 compliant balloon. Proximal circumflex stented with a 2.75 x 30 Resolute DONNA Stent postdilated with 2.75 NC balloon to high atmospheres 2.25 x 18 Resolute DONNA placed into mid OM2 2.5 x 22 Resolute DONNA overlapped with proximal and distal stents. All stents post-dilated with 2.5 stent balloon and proximal/mid stents post- dilated with 2.75 NC balloon IC vasodilators give for spasm Post procedure BLADIMIR 3 flow, minimal residual stenosis and no apparent coronary complications. Summary: 1. Severe multivessel coronary artery disease - Patent proximal-mid LAD stents (2 stents placed 11/2010) - Patent mid RCA stent at last cath on 09/23/2016 (placed 11/2010) - Recent stent to distal RCA/R-PAV on 09/23/2016 2. Successful PCI of proximal-mid circumflex into moderate caliber OM2 with 3 drug-eluting stents (2.75 x 30, 2.5 x 22, 2.25 x 18) Recommendations: Admit for observation overnight Reloaded with Clopidogrel 300mg in slab installer Continue with ASA/Plavix for a least year, likely life-long. Cardiac rehab Hemodynamics Rest Ao: 98/68/82 Final Ao: 112/69/87 Recommendations PCI without planned CABG Specimens None Radiation Exposure (mGy) 5435 Contrast (mls) 140 Drains moderate Anesthesia none Procedural Complication(s) None Disposition PCU ACC Data Cardiac Status Clinical evaluation leading to the procedure CAD Presntation: Unstable angina, Stable angina, Positive Stress Test Anginal Classification: CCS III Heart Failure: No, NYHA Class: CCS I Cardiogenic Shock w/in 24Hrs: No Cardiac Arrest w/in 24Hrs: No Imaging studies past 6 months: Yes Stress studies past 6 months: Yes Standard Exercise Stress Test: No Stress Echocardiogram: Yes - Positive, Risk/Extent of Ischemia (High) Stress Testing w/SPECT MPI: No Cardiac CTA: No Diagnostic Physician's Name: Yunior Pringle MD Status: Elective Closure Device Percutaneous Entry Location: Radial Closure Device: Radial Band Recommendations: PCI without planned CABG Lesion Segment Name: Circumflex Culprit Artery: Yes Stenosis Prior to Rx (%): 100 Chronic Total Occlusion: Yes IVUS: No FFR: No Pre-Procedure BLADIMIR Flow: 0 Lesion Complexity: High/C Lesion Length (mm): 35+ Thrombus Present: No Bifurcation Lesion: No Guidewire Across Lesion: Yes Guidewire: Stenosis Post-Procedure (%): 0 Post-Procedure BLADIMIR Flow: 3 Device(s) Deployed: Yes Intraprocedure Events Significant Dissection: No Perforation: No
[2016-10-06] MEDS: SODIUM CHLORIDE 0.9% 1000ML 1,000 ML IV SCH (02:15)
[2016-10-06 02:40] VITALS: BP 100/62; PULSE 54; TEMP 36.5; O2SAT 98
[2016-10-06] MEDS ORDERED: LEVOTHYROXINE 100 MCG TAB PO SCH (06:00)
[2016-10-06 06:03] LABS: BASO % 0.4 %; BASO ABS # 0.02 K/uL (0-0.2); COMPLETE YES; EOS % 1.8 %; HEMATOCRIT 36.2 % (42-52); IG% 0.4 %; LYMPH % 30.1 %; LYMPH ABS # 1.51 K/uL (1.2-3.4); MEAN CELL VOLUME 87.9 fL (80-100); MEAN CORPUSCULAR HEMOGLOBIN 28.9 pg (25-34); MEAN CORPUSCULAR HGB CONC 32.9 g/dl (32-36); MONO % 9.8 %; NEUT % 57.5 %; PLATELET COUNT 156 K/uL (130-400); RED BLOOD COUNT 4.12 M/uL (4.7-6.1); WHITE BLOOD COUNT 5.02 K/uL (4.8-10.8)
[2016-10-06 06:33] LABS: BUN/CREATININE RATIO 11.8 (10-20); CALCIUM 8.8 mg/dl (8.5-10.1); CREATININE 2.1 mg/dl (0.60-1.40)
[2016-10-06] MEDS: INSULIN ASPART 100 UNITS/ML 3 ML PEN SC SCH (07:00)
[2016-10-06 07:20] LABS: ESTIMATED AVERAGE GLUCOSE 189 mg/dl; HA1C FLAG Normal (Normal)
[2016-10-06 07:21] VITALS: BP 111/67; PULSE 59; TEMP 36.6; O2SAT 97
[2016-10-06] MEDS: CARVEDILOL 25 MG TAB PO SCH (08:24)
[2016-10-06] MEDS: INSULIN GLARGINE SC SCH (08:27)
[2016-10-06] MEDS ORDERED: ASPIRIN 81 MG ECTAB PO SCH (09:00)
[2016-10-06] MEDS ORDERED: FENOFIBRATE 48 MG TAB PO SCH (09:00)
[2016-10-06] MEDS ORDERED: ISOSORBIDE MONONITRATE 30 MG TABCR PO SCH (09:00)
[2016-10-06] MEDS ORDERED: ALLOPURINOL 300 MG TAB PO SCH (09:00)
[2016-10-06] MEDS ORDERED: CLOPIDOGREL BISULFATE 75 MG TAB PO SCH (09:00)
--- NOTE | 2016-10-06 10:31 | Discharge Instructions ---
Discharge Instructions Procedure Procedure Date: Oct 06, 2016. Reason for Visit: Cad,Z01.818 Dr Pringle To Do. Discharge Discharge Date: Oct 06, 2016. Discharge Diagnosis: Coronary artery disease Post coronary artery stenting Last Recorded Wt (Kilograms): 107.400 Anesthesia Post Anesthesia Instructions: If you have had General Anesthesia or IV Sedation: * Do not drive today. * Resume driving when surgeon permits. * Do not make important decisions or sign legal documents today. * Call surgeon for: 1. Temperature elevations greater than 101 degrees F. 2. Uncontrollable pain. 3. Excessive bleeding. 4. Persistent nausea and vomiting. 5. Medication intolerance (nausea, vomiting or rash). * For nausea and vomiting use only clear liquids such as: tea, soda, bouillon until nausea subsides, then gradually increase diet as tolerated. * If you have any concerns or questions, call your surgeon's office. If physician is unavailable and it is an emergency, call 911 or go to the nearest emergency room. Instructions Activity Recommendations: limitations as noted below Recommended Home Diet: resume previous diet Allergies: Coded Allergies: Lisinopril (Verified Allergy, Unknown, cough, 08/14/14) Follow Up Additional Instructions: ACTIVITY RECOMMENDATIONS: It is common to feel weak and fatigue for a few days. * Do not drive or operate any motorized equipment for the next 2 days. * Limit stair usage (2 or 3 trips a day only) for the next three days. * Do not lift anything heavier than 10 pounds for the next three days. * Do not engage in vigorous exercise or any sports for the next five days. * You may shower the day after your procedure, but do not immerse the area for three days. Cleanse the site gently with soap and water. SPECIAL CARE INSTRUCTIONS: * You may replace the pressure dressing or band-aid the morning after the procedure. * After your procedure, it is normal to have a small bruise or small lump at the site. Examine your site daily for any change in the bruise or lump, redness, swelling, drainage or numbness. Notify your doctor if any change. BLEEDING: * If there is a small amount of bleeding at the site, lie down and apply firm pressure with a clean cloth for ten minutes. When the bleeding stops, lie quietly keeping the procedure limb straight for six hours. Notify your doctor as soon as possible. * If the bleeding does not stop after ten minutes or if there is a large amount of bleeding or spurting, call 911 immediately. Continue to lie down and hold firm pressure until help arrives. SKIN IRRITATION: * You may experience some redness and/or swelling in the area where radiation was administered. If any skin irritation occurs, please contact your family physician. FOLLOW UP VISIT: Keep any scheduled doctor appointments. Follow-up with: In cardiology clinic in 2-3 weeks Kaitlin Wood Recommendations: Call your doctor if: * Temperature above 101 degrees * Pain not relieved by pain medicine ordered * There is increased drainage or redness from any incision * You have any unanswered questions or concerns. Your Doctors Instructions noted above were prepared by provider Sony Pringle. Patient Signature Section: Patient Instructions Signature Page Michele Ayers Patient (or Guardian) Signature/Date: I have read and understand the instructions given to me by my caregivers. Caregiver/RN/Doctor Signature/Date: The above-named patient and/or guardian has received patient instructions on this date. + Original Patient Signature Page (only) stays with chart. Please make copy for patient.
[2016-10-06 10:36] VITALS: BP 111/67; PULSE 59; TEMP 36.6; O2SAT 97
--- NOTE | 2016-10-06 10:40 | Discharge Summary ---
Discharge Summary Date of Service Oct 06, 2016. Discharge Summary Admission Date: Oct 05, 2016 at 14:39 Discharge Date: Oct 06, 2016 Discharge Disposition: Home Principal Diagnosis: Coronary Artery Disease Problems/Secondary Diagnoses: Chronic kidney disease Diabetes Post Coronary Artery Stenting Immunizations: Have You Had Influenza Vaccine: No History of Tetanus Vaccine?: Unknown History of Pneumococcal: Unknown History of Hepatitis B Vaccine: Unknown Procedures: 1. Successful PCI of proximal-mid circumflex into moderate caliber OM2 with 3 drug-eluting stents (Resolute 2.75 x 30, 2.5 x 22, 2.25 x 18) Medication Reconciliation Continued Medications: Allopurinol (Zyloprim) 100 Mg Tab 300 MG PO DAILY, TAB Aspirin (Aspirin Ec) 81 Mg Tab 81 MG PO DAILY Carvedilol (Coreg) 25 Mg Tab 25 MG PO BID, TAB Chlorthalidone (Hygroton) 25 Mg Tab 1 TAB PO DAILY for 30 Days, #30 TAB 5 Refills Clopidogrel (Plavix) 75 Mg Tab 75 MG PO DAILY for 30 Days, #30 TAB 9 Refills Ergocalciferol (Vitamin D 12174 Unit) 50,000 Unit Cap 1 CAP PO WK for 28 Days, #4 CAP 5 Refills Fenofibrate (Tricor) 48 Mg Tab 1 TAB PO DAILY for 30 Days, #30 TAB 5 Refills Indomethacin (Indocin) 50 Mg Cap 50 MG PO TID, #20 CAP WITH FOOD UNTIL PAIN RESOLVES Insulin Aspart (Novolog) 100 Unit/ Inj 0 SC AC, BTL SLIDING SCALE Insulin Glargine (Lantus) Vial 50 UNITS SC AMPM, VIAL Isosorbide Mononitrate Ext Rel (Imdur Ext Rel) 30 Mg Ertab 1 TAB PO DAILY for 30 Days, #30 TAB 5 Refills Levothyroxine Sodium (Levothyroxine Sodium) 100 Mcg Tab 1 TAB PO DAILY for 30 Days, #30 TAB 5 Refills Nitroglycerin (Nitrostat) 0.4 Mg Sub 0.4 MG UT PRN, BTL Rosuvastatin Calcium (Crestor) 40 Mg Tab 40 MG PO HS, TAB Discharge Exam Physical Exam: General Appearance: no apparent distress Eyes: normal inspection ENT: normal ENT inspection Neck: no JVD Respiratory/Chest: chest non-tender, lungs clear, normal breath sounds Cardiovascular: regular rate, rhythm, no edema, no JVD Abdomen / GI: non tender, soft Extremities: no calf tenderness, no pedal edema, + pertinent finding (No right radial access site hematoma. Intact distal pulses and sensation) Neurologic/Psychiatric: no motor/sensory deficits, alert, normal mood/affect , oriented x 3 Skin: normal color, warm/dry, no rash Hospital Course 51 year old male with complaints of stable angina. Patient with history of DM, CKD (baseline SCr around 2.0) CAD initially diagnosed in 11/2010 at which time underwent PCI with stent placement to his proximal LAD and RCA. LV function reduced at that time but has since resolved. Seen in cardiology clinic recently with worsening chest intermittent chest pain for months. Underwent stress test which had high risk finding and was suggestive of multivessel CAD. Sent to quality control lab tech for urgent catheterization 09/23/2016 which revealed a subtotal proximal occlusion in the circumflex and R-PAV with a 90% stenosis. With patients CKD decision made to proceed with PCI to R-PAV with placement of a 2.25 x 18 Resolute. Patient brought back yesterday for staged PCI of circumflex. Procedure completed via right radial artery yesterday without complication. 3 Resolute DONNA placed to circumflex into OM with good angiographic result. Overnight no chest pain. No events on telemetry. No new complaints AM of admission and no access site complications. Patient discharged to home with plan for follow-up with Cardiology clinic in 2- 3 weeks. Will discuss cardiac rehab at that time. Now with 7 total stents and will plan to continue on DAPT for at least a year, likely lifelong. Total Time Spent: Less than 30 minutes This includes examination of the patient, discharge planning, medication reconciliation, and communication with other providers. Discharge Instructions Please refer to the electronic Patient Visit Report (Discharge Instructions) for additional information. Follow-Up Cardiology Clinic 2-3 weeks.
[2016-10-06 10:48] VITALS: BP 116/70; PULSE 61; TEMP 37; O2SAT 96
[2017-01-28] MEDS ORDERED: OXYC-57 PO (18:18)
== END 2016-10-06 11:21 | disposition home or self-care (01) ==
LOC: C.CATH 10:14 → C.2T 14:39
PROVIDERS: ADMIT Internal Medicine Interventional Cardiology; ATTEND Internal Medicine Interventional Cardiology
DX: I25.10 Atherosclerotic heart disease of native coronary artery without angina pectoris (principal); I20.8 Other forms of angina pectoris; N18.9 Chronic kidney disease, unspecified; I11.9 Hypertensive heart disease without heart failure; E11.39 Type 2 diabetes mellitus with other diabetic ophthalmic complication; E11.40 Type 2 diabetes mellitus with diabetic neuropathy, unspecified; E78.5 Hyperlipidemia, unspecified; Z87.442 Personal history of urinary calculi; Z79.82 Long term (current) use of aspirin; Z79.4 Long term (current) use of insulin; Z79.02 Long term (current) use of antithrombotics/antiplatelets

== ENCOUNTER → 2017-01-10 | Outpatient (CLI) | payer BC ==
[~2017-01-10] MED LIST changes: -HYDR25TA4 PO; +OXYC-57 PO
[2017-01-10 09:51] LABS: URINE APPEARANCE CLEAR (CLEAR); URINE BILIRUBIN NEG (NEG); URINE COLOR YELLOW; URINE NITRITE NEG (NEG); URINE SPECIFIC GRAVITY 1.022 (1.000-1.030); UROBILINOGEN NEG (NEG)
[2017-01-10 09:56] LABS: BLOOD UREA NITROGEN 26 mg/dl (7-18); BUN/CREATININE RATIO 12.9 (10-20); CALCIUM 9.6 mg/dl (8.5-10.1); CARBON DIOXIDE 27 mmol/L (21-32); CHLORIDE 105 mmol/L (98-107); GLUCOSE 198 mg/dl (70-99); POTASSIUM 3.8 mmol/L (3.5-5.1); SODIUM 141 mmol/L (136-145)
[2017-01-10 09:57] LABS: MEAN CELL VOLUME 87.1 fL (80-100); MEAN CORPUSCULAR HEMOGLOBIN 29.4 pg (25-34); MEAN CORPUSCULAR HGB CONC 33.7 g/dl (32-36); PHOSPHORUS 2.9 mg/dl (2.5-4.9); PLATELET COUNT 244 K/uL (130-400); RED BLOOD COUNT 4.02 M/uL (4.7-6.1); WHITE BLOOD COUNT 5.71 K/uL (4.8-10.8)
[2017-01-10 10:03] LABS: MANUAL MICROSCOPIC REQUIRED? NO; REVIEW REQ? NO
[2017-01-10 10:20] LABS: URINE PROTIEN/CREAT RATIO 0.3 (0-0.2); URINE TOTAL PROTEIN 61.4 mg/dl (0-11.9)
== END | disposition home or self-care (01) ==
LOC: C.LAB1850 07:29
PROVIDERS: ATTEND Internal Medicine Nephrology
DX: I12.9 Hypertensive chronic kidney disease with stage 1 through stage 4 chronic kidney disease, or unspecified chronic kidney disease (principal); N18.3 Chronic kidney disease, stage 3 (moderate); R80.9 Proteinuria, unspecified; D64.9 Anemia, unspecified; N25.81 Secondary hyperparathyroidism of renal origin

== ENCOUNTER → 2017-01-28 | Day surgery (SDC) | payer BC ==
[~2017-01-28] VITALS: Ht 182.9 cm; Wt 106.7 kg
[~2017-01-28] MED LIST changes: +ATROPINE SULFATE 0.1 MG/ML 5ML SYR IV PRN; +BACITRACIN 50000 UNIT VIAL IR ONE; +BUPIVACAINE/EPINEPHRINE 0.5% MPF 1:200,000 10 ML VIAL ONE; +CALCIUM CHLORIDE 10% 10 ML SYR ONE; +CEFAZOLIN 2000 MG/60 ML D5W IV SCH; +EpHEDrine SULFATE INJ 50 MG/ML AMP IV PRN; +FENTANYL CITRATE INJ 50 MCG/1 ML 2 ML VIAL IV PRN; +FENTANYL CITRATE INJ 50 MCG/1 ML 2 ML VIAL ONE; +HYDROmorphone INJ 1 MG/ML SYR IV PRN; +LIDOCAINE HCL 2% 2 ML VIAL (20MG/ML) ONE; +MIDAZOLAM HCL 1 MG/ML 2ML VIAL ONE; +ONDANSETRON INJ 2 MG/ML 2 ML VIAL IV PRN; +OXYCODONE HCL 10 MG TABCR (OXYCONTIN) PO SCH; +OXYCODONE/ACETAMINOPHEN 5-325 TAB PO PRN; +PROMETHAZINE HCL INJ 6.25 MG in SODIUM CHLORIDE 0.9% 50ML 50 ML IV PRN; +PROPOFOL IV EMULSION 10 MG/ML 20 ML VIAL IV ONE; +ROPIVACAINE 0.5% 5 MG/ML 30 ML VIAL ONE; +SODIUM CHLORIDE 0.9% 1000ML 1,000 ML IV SCH; +THROMBIN 5000 UNITS KIT ONE
--- NOTE | 2017-01-28 08:05 | History and Physical ---
History & Physical Date Jan 28, 2017. (Finn Gil PA-C) Chief Complaint left ankle pain (Finn Gil PA-C) History of Present Illness The patient is a 51 year old male with complaints of left ankle pain after an injury about 5 weeks ago. The patient had been using the ankle with weightbearing but had pain. X-rays were done ~1 week ago that noted displaced fx 's. He is now being set up for surgical tx. (Finn Gil PA-C) Past Medical/Surgical History Medical Problems: (1) CAD (coronary artery disease) (2) Diab W Ophthal Manifest, Type Ii Or Unspec Type, Uncntrld (3) Diabetic peripheral neuropathy associated with type 2 diabetes mellitus (4) Foot deformity (5) Gout (6) Heart disease (7) History of diabetic ulcer of foot (8) Hyperlipidemia Nec/Nos (9) Hypertension Nos (10) Kidney stone (11) Loss of sensation (Finn Gil PA-C) Allergies Coded Allergies: Lisinopril (Verified Allergy, Unknown, cough, 08/14/14) Home Medications Scheduled Allopurinol (Zyloprim), 300 MG PO DAILY Aspirin (Aspirin Ec), 81 MG PO DAILY Carvedilol (Coreg), 25 MG PO BID Chlorthalidone (Hygroton), 1 TAB PO DAILY Clopidogrel (Plavix), 75 MG PO DAILY Ergocalciferol (Vitamin D 50518 Unit), 1 CAP PO WK Fenofibrate (Tricor), 1 TAB PO DAILY Indomethacin (Indocin), 50 MG PO TID Insulin Aspart (Novolog), 0 SC AC Insulin Glargine (Lantus), 50 UNITS SC AMPM Isosorbide Mononitrate Ext Rel (Imdur Ext Rel), 1 TAB PO DAILY Levothyroxine Sodium (Levothyroxine Sodium), 1 TAB PO DAILY Nitroglycerin (Nitrostat), 0.4 MG UT PRN Rosuvastatin Calcium (Crestor), 40 MG PO HS Physical Examination Skin: warm/dry, no rash Eyes: normal inspection Head: normocephalic, atraumatic Neck: supple Respiratory/Chest: lungs clear, normal breath sounds, no respiratory distress Cardiovascular: regular rate, rhythm Abdomen / GI: normal bowel sounds, non tender Extremities: + pertinent finding (Left ankle swelling. Tender at the medial and lateral malleoli. Limited ROM and strength. ) Neurologic/Psych: no motor/sensory deficits, alert, oriented x 3 (Finn Gil, KAREN) Extremities: + pertinent finding (Healed skin ulcer lateral malleolus, Fibular deformity with slight varus deformity of the ankle, dysthesias B LE) (Terrell Gomez,Antwon.OCesario) Diagnosis Left ankle bimalleolar ankle fx (Finn Gil, KAREN) Plan of Treatment Recommend an ORIF left bimalleolar ankle fx with autograft, syndesmotic repair, calcaneal autograft harvest, application PRP. All potential risks, benefits, complications, alternatives and rehab have been discussed and the patient wishes to proceed. He will be scheduled for surgery on 01.28.17. (Finn Gil, KAREN)
[2017-01-28 12:02] VITALS: BP 128/77; PULSE 70; TEMP 37.1; O2SAT 97; Ht 182.9 cm; Wt 106.7 kg
--- NOTE | 2017-01-28 17:54 | DIAGNOSTIC IMAGING REPORT ---
LEFT ANKLE 2 VIEWS CLINICAL HISTORY: LT ORIF BIMALLEOLAR fracture TECHNIQUE: Image intensifier COMPARISON STUDY: None FINDINGS: Image intensifier utilized for open reduction internal fixation of the distal tibia as well as fibula IMPRESSION: Intraoperative image intensifier usage The above report was generated using voice recognition software. It may contain grammatical, syntax or spelling errors. Electronically signed by: Eliud Cruz M.D. 01/28/2017 5:52 PM Dictated Date/Time: 01/28/2017 5:49 PM
--- NOTE | 2017-01-28 18:21 | Discharge Instructions ---
Discharge Instructions Date of Service Jan 28, 2017. Admission Reason for Admission: Left Ankle Bimalleolar Fracture Discharge Discharge Diagnosis / Problem: Left ankle ORIF Discharge Goals Goal(s): Improve function Activity Recommendations Activity Limitations: as noted below . Instructions / Follow-Up Instructions / Follow-Up Keep dressings/ splint clean, dry and in tact. Do not get wet. Ice/ elevate as needed. Non weight bearing Left LE w crutches. No PT needed. Follow up w Dr. Gomez 12-14 days post op, call [phone] for appt. No driving. Current Hospital Diet Patient's current hospital diet: Discharge Diet Recommended Diet: Diabetes Type 2 Diet Procedures Procedures Performed: Left Ankle Bimalleolar Fracture Open Reduction Internal Fixation with Autograft Gunpowder Calcaneus, Syndesmotic Repair, Application of Platelet Rich Plasma Pending Studies Studies pending at discharge: no Medical Emergencies . Who to Call and When: Medical Emergencies: If at any time you feel your situation is an emergency, please call 911 immediately. . Non-Emergent Contact Non-Emergency issues call your: Primary Care Provider . "Provider Documentation" section prepared by Eliud Barraza. . VTE Core Measure Inpt VTE Proph given/why not?: SCD's [place] Drug Monitoring Program Search Results: patient reviewed within database, no issues identified
--- NOTE | 2017-01-28 18:37 | [facility] Operative Report ---
Operative Report Operative Date Jan 28, 2017. Pre-Operative Diagnosis Left Neglected Displaced Bimalleolar Ankle Fracture; Syndesmotic Injury; Diabetic Neuropathy Post-Operative Diagnosis Left Neglected Displaced Bimalleolar Ankle Fracture; Syndesmotic Injury; Diabetic Neuropathy; Osteochondral Defect Medial Talus Procedure(s) Performed Left Ankle Bimalleolar Fracture Open Reduction Internal Fixation with Application Autograft; Autograft [place] Calcaneus; Arthrotomy Ankle with Debridement Osteochondral Defect Medial Talus; Syndesmotic Repair; Application of Platelet Rich Plasma Concentrate Surgeon Dr. Gomez Physics Technical Officer Surgeon(s) Renee Barraza PA-C Estimated Blood Loss 50mL Findings See Dictation Specimens none Drains none Anesthesia Gen. LMA with popliteal block Complication(s) None Disposition Recovery Room / PACU Indications This is a 51-year-old gentleman who had sustained a bimalleolar fracture of his left ankle. This occurred sometime in November. He ambulated on the lower extremity because his initial assessment was that there is no fracture. He then presented to my partner this past week and was noted to have neglected, displaced, bimalleolar ankle fracture and was then referred to my clinic for definitive care and management. Patient has a recent history of cardiac stents times 09/04/2016 he had 3 prior stents the year before. Noted to have bilateral lower extremity diabetic neuropathy and history of focal apical necrosis of the heart. Radial grafts demonstrate a neglected displaced bimalleolar ankle fracture with varus deformity of the ankle, diastases at the fibula with a syndesmotic widening and varus displacement of the medial malleolus. Patient also developed a pressure ulcer over the lateral aspect fibula due to the varus deformity of the ankle. Patient was then scheduled for surgery as indicated and noted to be a higher risk case due to his multiple medical comorbidities, neglect of the fracture and the delay in seeking definitive care and management. Description of Procedure All potential risks, benefits, complications, alternatives, rehabilitation, potential for incomplete relief of symptoms, need for further surgery, persistent numbness, weakness, stiffness, persistent pain, DVT, PE, , bone fracture, hardware breakage, nonunion, malunion or wound complications were discussed with the patient. The patient decided to proceed with the procedure as indicated. Procedure: The patient received a popliteal block in the preoperative holding area. The patient was then taken to the operative suite and placed supine on the operating room table. After review of the consent and identification of proper operative site the patient was anesthetized and LMA was placed. A tourniquet was applied high left thigh over cast padding. The left lower extremity was then sterilely prepped and draped in usual fashion. Left lower extremity was then elevated and exsanguinated and Esmarch bandage. The tourniquet was inflated to 350 mmHg. A 15 blade scalpel was make an incision centered over the distal fibula extended proximally. Care was taken to avoid the healed ulcer over the lateral aspect of the ankle. The incision was deepened to the subcutaneous tissue and meticulous hemostasis was achieved with electrocautery. The peroneal tendons were identified and retracted with Mak rakes and protected. The periosteum overlying the fibula was then incised in line with the skin incision with 15 blade scalpel. Dressing was then carefully elevated both superiorly and inferiorly. This revealed the nonunion of the fibula. There is noted to be hypertrophic fibrous tissue at the fracture site and immature callus. This is then debrided with a rongeur. Next the fracture site was then carefully opened with a Gunpowder elevator and a small dental pick was then used to debride the fracture back to bleeding bone. This was irrigated with sterile normal saline. Next lateral aspect of the ankle was covered with a moist lap sponge. An oblique incision was made over the lateral aspect calcaneus 15 blade scalpel. Careful dissection was performed on level of periosteum. A Weitlaner retractor was placed in the incision. An osteotome was then used to create a small window in the lateral aspect of the calcaneus. This is then elevated with a curved osteotome. A curet was then used to harvest cancellus bone for autograft. Next the incision was then copiously irrigated with sternal saline. The periosteal hinges then closed using a 2-0 Vicryl suture. The dermis was closed using buried interrupted 3-0 Vicryl. Skin is closed using 4-0 nylon suture. Next the venous blood was harvested from the patient approximately 50 mL and then prepared for use as platelet rich plasma concentrate. This was then placed in the back table for later use in the case. Next 15 blade scalpel was used to make an incision along the medial malleolus. Incision was then deepened to the subcutaneous tissue. Meticulous hemostasis was achieved with electrocautery. Mak rakes were placed to retract soft tissue. The saphenous vein was retracted and protected. The malunion/ nonunion fracture was identified. Hypertrophic fibrous tissue and immature callus was then resected with a rongeur. The nonunion site was then carefully opened with a Covarrubias elevator and it was debrided with a dental pick and a small curette. This was irrigated until clear with sterile normal saline with bacitracin. Next an arthrotomy was made in the anterior medial aspect of the ankle. The ankle joint was then debrided with a the 2 anterior rongeur removing clot and fibrous tissue to aid in the reduction of the ankle. Also of note was an osteochondral defect of the superior medial talus. A rongeur was used to debride the osteochondral defect of the medial talus back to a stable base. Next the fracture was then reduced under live fluoroscopic assistance using a large Oh reduction tong. The medial malleolar fragment was then pinned in place using 0.062 inch K wires 4. The ankle mortise was then restored to near anatomic position. Then the lateral locking fibular plate was then affixed to the lateral aspect of the fibula using a single 3.5 mm nonlocking screw under live fluoroscopic assistance. This is then followed by use of multiple locking screws first distally and then using a compression screw technique the fracture was then prepared to be compressed. Next autograft from the lateral calcaneus was then impacted into the fracture site of the fibula. The plate was then used to compress the fracture and then multiple locking screws were placed both proximal and distal aspect of the fibular locking plate stabilized. Next the reduction forcep was then removed and a locking medial tibial plate was then placed subperiosteally after it was performed with plate bending irons. A nonlocking screw was first used to compress the plate to the bone and then under live fluoroscopic assistance the plate was then firmly affixed to the medial tibia. Autograft harvested from the calcaneus was then impacted into the medial malleolar fracture site and then a lag screw was placed through the plate to lock into the distal tibia to compress the fracture into near-anatomic position. The foot was held in neutral dorsiflexion underlie fluoroscopic assistance. A syndesmotic screw was then placed from the lateral malleolus into the distal tibia under live fluoroscopic assistance. This stabilized the syndesmosis. Final irrigation was performed with sterile normal saline with bacitracin. Next platelet rich plasma concentrate was then injected into the fracture sites of the medial malleolus and lateral malleolus. Final radiographs were obtained in AP and lateral positions. Periosteum was closed medially with 2-0 Vicryl. Periosteum was closed laterally with 2-0 Vicryl. The hardware was completely covered with deeps soft tissue. The dermis was closed using buried interrupted 3-0 Vicryl both medial and lateral. Next all skin incisions then closed using 4 -0 nylon. Platelet poor plasma concentrate was then injected superficially followed by application of a sterile compressive bulky Martinez Pringle dressing overwrapped with an Anil wrap. The tourniquet was released, the patient was awakened and taken to recovery in stable condition. I attest to the content of the Intraoperative Record and any orders documented therein. Any exceptions are noted below.
--- NOTE | 2017-01-28 19:09 | DIAGNOSTIC IMAGING REPORT ---
LEFT ANKLE 2 VIEWS CLINICAL HISTORY: post-op postoperative evaluation COMPARISON: None. DISCUSSION: Evidence for plate fixation of the distal tibia as well as fibula. Alignment is anatomic. Patient is in casting material. There is no evidence for soft tissue swelling. IMPRESSION: Anatomic alignment on a postoperative basis. The above report was generated using voice recognition software. It may contain grammatical, syntax or spelling errors. Electronically signed by: Eliud Cruz M.D. 01/28/2017 7:08 PM Dictated Date/Time: 01/28/2017 7:07 PM
[2017-01-28 19:12] VITALS: BP 147/80; PULSE 78; TEMP 36.8; O2SAT 95
[2017-01-28 19:40] VITALS: BP 139/80; PULSE 84; TEMP 36.8; O2SAT 96
== END | disposition home or self-care (01) ==
LOC: C.ACU 11:00
PROVIDERS: ATTEND Orthopaedic Surgery Sports Medicine
DX: S82.842K Displaced bimalleolar fracture of left lower leg, subsequent encounter for closed fracture with nonunion (principal); I25.10 Atherosclerotic heart disease of native coronary artery without angina pectoris; E11.40 Type 2 diabetes mellitus with diabetic neuropathy, unspecified; E78.5 Hyperlipidemia, unspecified; I10 Essential (primary) hypertension; Z87.442 Personal history of urinary calculi; Z79.82 Long term (current) use of aspirin; M10.9 Gout, unspecified; X58.XXXA Exposure to other specified factors, initial encounter
CPT/HCPCS: 0232T; 20900; 27814

== ENCOUNTER → 2017-03-22 | Outpatient (CLI) | payer BC ==
[~2017-03-22] MED LIST changes: -ATROPINE SULFATE 0.1 MG/ML 5ML SYR IV PRN; -BACITRACIN 50000 UNIT VIAL IR ONE; -BUPIVACAINE/EPINEPHRINE 0.5% MPF 1:200,000 10 ML VIAL ONE; -CALCIUM CHLORIDE 10% 10 ML SYR ONE; -CEFAZOLIN 2000 MG/60 ML D5W IV SCH; -EpHEDrine SULFATE INJ 50 MG/ML AMP IV PRN; -FENTANYL CITRATE INJ 50 MCG/1 ML 2 ML VIAL IV PRN; -FENTANYL CITRATE INJ 50 MCG/1 ML 2 ML VIAL ONE; -HYDROmorphone INJ 1 MG/ML SYR IV PRN; -LIDOCAINE HCL 2% 2 ML VIAL (20MG/ML) ONE; -MIDAZOLAM HCL 1 MG/ML 2ML VIAL ONE; -ONDANSETRON INJ 2 MG/ML 2 ML VIAL IV PRN; -OXYCODONE HCL 10 MG TABCR (OXYCONTIN) PO SCH; -OXYCODONE/ACETAMINOPHEN 5-325 TAB PO PRN; -PROMETHAZINE HCL INJ 6.25 MG in SODIUM CHLORIDE 0.9% 50ML 50 ML IV PRN; -PROPOFOL IV EMULSION 10 MG/ML 20 ML VIAL IV ONE; -ROPIVACAINE 0.5% 5 MG/ML 30 ML VIAL ONE; -SODIUM CHLORIDE 0.9% 1000ML 1,000 ML IV SCH; -THROMBIN 5000 UNITS KIT ONE
[2017-03-22 12:17] LABS: HEMATOCRIT 37.8 % (42-52)
[2017-03-22 12:46] LABS: ALT/SGPT 21 U/L (12-78); BLOOD UREA NITROGEN 29 mg/dl (7-18); BUN/CREATININE RATIO 14.4 (10-20); CALCIUM 10.2 mg/dl (8.5-10.1); CARBON DIOXIDE 28 mmol/L (21-32); CHLORIDE 99 mmol/L (98-107); CHOLESTEROL 167 mg/dl (0-200); GLUCOSE 242 mg/dl (70-99); POTASSIUM 3.9 mmol/L (3.5-5.1); SODIUM 135 mmol/L (136-145); TRIGLYCERIDES 208 mg/dl (0-150); VERY LOW DENSITY LIPOPROT CALC 42 mg/dl
[2017-03-22 12:53] LABS: ESTIMATED AVERAGE GLUCOSE 157 mg/dl; HA1C FLAG Normal (Normal)
[2017-03-22 12:56] LABS: ALKALINE PHOSPHATASE 140 U/L (45-117); AST/SGOT 15 U/L (15-37); CHOLESTEROL/HDL RATIO 4.8; HDL CHOLESTEROL 35 mg/dl; LDL CHOLESTEROL CALCULATED 90 mg/dl
== END | disposition home or self-care (01) ==
LOC: C.LAB1850 10:25
PROVIDERS: ATTEND Nurse Practitioner Adult Health
DX: I10 Essential (primary) hypertension (principal); E78.5 Hyperlipidemia, unspecified; E03.9 Hypothyroidism, unspecified; E11.29 Type 2 diabetes mellitus with other diabetic kidney complication

== ENCOUNTER → 2017-04-28 | Outpatient (CLI) | payer BC | END | disposition home or self-care (01) | LOC: C.LAB1850 07:18 | PROVIDERS: ATTEND Nurse Practitioner Adult Health | DX: N18.3 Chronic kidney disease, stage 3 (moderate) (principal); E55.9 Vitamin D deficiency, unspecified; Z79.4 Long term (current) use of insulin; E11.311 Type 2 diabetes mellitus with unspecified diabetic retinopathy with macular edema; R80.9 Proteinuria, unspecified; E11.21 Type 2 diabetes mellitus with diabetic nephropathy ==

== ENCOUNTER → 2017-07-15 | Outpatient (CLI) | payer OTHER ==
[2017-07-15 09:34] LABS: HEMATOCRIT 34.9 % (42-52); HEMOGLOBIN 11.4 g/dL (14.0-18.0); MEAN CELL VOLUME 85.1 fL (80-100); MEAN CORPUSCULAR HEMOGLOBIN 27.8 pg (25-34); MEAN CORPUSCULAR HGB CONC 32.7 g/dl (32-36); MEAN PLATELET VOLUME 9.5 fL (7.4-10.4); PLATELET COUNT 238 K/uL (130-400); RED CELL DISTRIBUTION WIDTH CV 15.6 % (11.5-14.5); WHITE BLOOD COUNT 5.64 K/uL (4.8-10.8)
[2017-07-15 09:58] LABS: ALBUMIN 3.6 gm/dl (3.4-5.0); BLOOD UREA NITROGEN 28 mg/dl (7-18); CALCIUM 9.3 mg/dl (8.5-10.1); CARBON DIOXIDE 29 mmol/L (21-32); CREATININE 1.92 mg/dl (0.60-1.40); GLUCOSE 313 mg/dl (70-99); POTASSIUM 3.6 mmol/L (3.5-5.1); SODIUM 136 mmol/L (136-145)
== END | disposition home or self-care (01) ==
LOC: C.LAB1850 07:30
PROVIDERS: ATTEND Internal Medicine Nephrology
DX: I12.9 Hypertensive chronic kidney disease with stage 1 through stage 4 chronic kidney disease, or unspecified chronic kidney disease (principal); N18.3 Chronic kidney disease, stage 3 (moderate); N25.81 Secondary hyperparathyroidism of renal origin; D64.9 Anemia, unspecified; R80.9 Proteinuria, unspecified; E55.9 Vitamin D deficiency, unspecified

== ENCOUNTER 2017-10-31 09:16 | Observation (INO) | payer OTHER ==
[~2017-10-31] VITALS: Ht 182.9 cm; Wt 97.8 kg
[~2017-10-31 09:16] MED LIST changes: -OXYC-57 PO
[2017-10-31] MEDS ORDERED: SODIUM CHLORIDE 0.9% 1000ML 1,000 ML IV STA (09:29)
[2017-10-31] MEDS ORDERED: GLGKIT SC (09:56)
[2017-10-31] MEDS ORDERED: LEVO112T4 PO (09:56)
[2017-10-31] MEDS ORDERED: INSU100I23 SC (09:56)
[2017-10-31] MEDS ORDERED: NVLG SC (09:56)
[2017-10-31 09:58] LABS: BASO % 0.3 %; BASO ABS # 0.02 K/uL (0-0.2); EOS % 1.7 %; EOS ABS # 0.11 K/uL (0-0.5); HEMATOCRIT 32.7 % (42-52); HEMOGLOBIN 10.4 g/dL (14.0-18.0); IG# 0.02 K/uL (0.00-0.02); LYMPH % 18.7 %; LYMPH ABS # 1.19 K/uL (1.2-3.4); MEAN CORPUSCULAR HEMOGLOBIN 26.4 pg (25-34); MEAN CORPUSCULAR HGB CONC 31.8 g/dl (32-36); MEAN PLATELET VOLUME 8.7 fL (7.4-10.4); MONO % 5.8 %; MONO ABS # 0.37 K/uL (0.11-0.59); NEUT % 73.2 %; NEUT ABS # 4.65 K/uL (1.4-6.5); PLATELET COUNT 213 K/uL (130-400); RED CELL DISTRIBUTION WIDTH CV 16.3 % (11.5-14.5); RED CELL DISTRIBUTION WIDTH SD 49.1 fL (36.4-46.3); WHITE BLOOD COUNT 6.36 K/uL (4.8-10.8)
--- NOTE | 2017-10-31 09:58 | DIAGNOSTIC IMAGING REPORT ---
CHEST ONE VIEW PORTABLE CLINICAL HISTORY: 52 years-old Male presenting with CHEST PAIN. TECHNIQUE: Portable upright AP view of the chest was obtained. COMPARISON: 09/23/2016. FINDINGS: Cardiomediastinal silhouette normal. Mildly low lung volumes. No focal opacity. No large effusion or pneumothorax. Osseous structures normal. Upper abdomen normal. IMPRESSION: 1. No acute cardiopulmonary disease. Electronically signed by: Charan Nino M.D. 10/31/2017 9:56 AM Dictated Date/Time: 10/31/2017 9:56 AM
[2017-10-31 10:07] LABS: INR 1.1 (0.9-1.1); PTT PATIENT 24.6 SECONDS (21.0-31.0)
[2017-10-31 10:14] LABS: ALBUMIN 3.6 gm/dl (3.4-5.0); CALCIUM 9.3 mg/dl (8.5-10.1); CREATININE 1.83 mg/dl (0.60-1.40); POTASSIUM 4.1 mmol/L (3.5-5.1)
[2017-10-31 10:25] LABS: CKMB 1.5 ng/ml (0.5-3.6); TOTAL PROTEIN 7.8 gm/dl (6.4-8.2)
[2017-10-31] MEDS ORDERED: ASPIRIN 81 MG CHEW PO STA (10:55)
--- NOTE | 2017-10-31 11:42 | EMERGENCY ROOM VISIT NOTE ---
History Report prepared by Rodríguez: Nahum Matthews Under the Supervision of: Dr. Sterling Hager M.D. First contact with patient: 09:20 Stated Complaint: SYNCOPE/HYPOTENSION History of Present Illness The patient is a 52 year old male who presents to the Emergency Room with complaints of a syncopal episode occurring just prior to arrival. He was being seen at the diabetic clinic when his episode occurred. He is reported to have appeared "perez" during the episode. The patient was unconscious for only a few seconds. He states that his blood pressure was found to be low prior to the episode. He reports feeling lightheaded today. The patient denies chest pain, SOB, back pain, fevers, or black or bloody stool. He denies pain with breathing , or history of blood clots. He notes that he has had multiple left ankle surgeries related to Charcot joint of the foot (currently has an external fixator in place). The patient has a history of seven cardiac stent placements. Source of History: patient Onset: Just prior to arrival Symptom Intensity: unconscious for a few seconds Quality: other (syncope) Timing: other (episode) Associated Symptoms: No fevers, No chest pain, No SOB, No back pain, No melena, No hematochezia Review of Systems See HPI for pertinent positives & negatives. A total of 10 systems reviewed and were otherwise negative. Past Medical & Surgical Medical Problems: (1) CAD (coronary artery disease) (2) Charcot foot due to diabetes mellitus (3) Diab W Ophthal Manifest, Type Ii Or Unspec Type, Uncntrld (4) Diabetic peripheral neuropathy associated with type 2 diabetes mellitus (5) Foot deformity (6) Gout (7) Heart disease (8) History of diabetic ulcer of foot (9) Hyperlipidemia Nec/Nos (10) Hypertension Nos (11) Kidney stone (12) Loss of sensation Old medical records were reviewed. Nurse's notes were reviewed and I agree with. Family History Cancer Diabetes mellitus Gallbladder disease Heart disease Hypertension Lung disease Social History Smoking Status: Never Smoker Alcohol Use: none Marital Status: Housing Status: lives with family Occupation Status: employed Current/Historical Medications Scheduled Allopurinol (Zyloprim), 300 MG PO DAILY Aspirin (Aspirin Ec), 81 MG PO DAILY Carvedilol (Coreg), 25 MG PO DAILY Chlorthalidone (Hygroton), 25 MG PO DAILY Clopidogrel (Plavix), 75 MG PO DAILY Ergocalciferol (Vitamin D 44985 Unit), 50,000 UNITS PO MONTHLY Fenofibrate (Tricor), 48 MG PO DAILY Indomethacin (Indocin), 50 MG PO TID Insulin Aspart (Novolog), 1 DOSE SC ACHS Insulin Glargine (Basaglar Kwikpen), 50 UNITS SC QPM Isosorbide Mononitrate Ext Rel (Imdur Ext Rel), 30 MG PO DAILY Levothyroxine Sodium (Levothyroxine Sodium), 112 MCG PO DAILY Nitroglycerin (Nitrostat), 0.4 MG UT PRN Rosuvastatin Calcium (Crestor), 40 MG PO HS Scheduled PRN Glucagon (Glucagon Emergency Kit), 1 DOSE SC UD PRN for Hypoglycemia Treatment Allergies Coded Allergies: Lisinopril (Unverified Adverse Reaction, Unknown, cough, 10/31/17) Physical Exam Vital Signs Date Time Temp Pulse Resp B/P (MAP) Pulse Ox O2 Delivery O2 Flow Rate FiO2 10/31/17 12:30 62 18 124/71 96 Room Air 10/31/17 11:52 97 Room Air 10/31/17 10:44 67 16 128/79 97 Room Air 10/31/17 09:57 61 16 106/71 96 Room Air 10/31/17 09:27 36.9 60 16 106/73 96 Room Air 10/31/17 09:24 61 Physical Exam General: Non-ill appearing middle-aged male in no acute distress. HEENT: Normal cephalic atraumatic. Pupils are equal round and reactive to light. Extraocular movements are intact. Oropharynx is pink with moist mucous membranes. No swelling of the mouth lips or tongue. Neck: Supple with a midline trachea. No meningeal signs or stiffness, no JVD or bruits. No Stridor. Chest: Clear to auscultation bilaterally. No wheezes or rhonchi. No increased work of breathing. Heart: regular rate and rhythm. Abdomen: Soft nontender, nondistended without rebound guarding or rigidity. Extremities: No cyanosis clubbing or edema. External fixator to the left ankle. No redness or warmth. Normal appearing pin sites. Spine/Back. Non tender to palpation. No CVA tenderness Skin: Good turgor without rashes. Neurologic exam: Cranial nerves two through 12 are intact. Motor and sensation are intact and symmetrical throughout. Medical Decision & Procedures ER Provider Diagnostic Interpretation: Radiology results as stated below per my review and radiologist interpretation: CHEST ONE VIEW PORTABLE FINDINGS: Cardiomediastinal silhouette normal. Mildly low lung volumes. No focal opacity. No large effusion or pneumothorax. Osseous structures normal. Upper abdomen normal. IMPRESSION: 1. No acute cardiopulmonary disease. Electronically signed by: Charan Nino M.D. 10/31/2017 9:56 AM Laboratory Results 10/31/17 09:50 Red Blood Count 3.94, Mean Corpuscular Volume 83.0, Mean Corpuscular Hemoglobin 26.4, Mean Corpuscular Hemoglobin Concent 31.8, Mean Platelet Volume 8.7, Neutrophils (%) (Auto) 73.2, Lymphocytes (%) (Auto) 18.7, Monocytes (%) (Auto) 5.8, Eosinophils (%) (Auto) 1.7, Basophils (%) (Auto) 0.3, Neutrophils # (Auto) 4.65, Lymphocytes # (Auto) 1.19, Monocytes # (Auto) 0.37, Eosinophils # (Auto) 0.11, Basophils # (Auto) 0.02 10/31/17 09:50 Test 10/31/17 09:50 10/31/17 09:51 White Blood Count 6.36 K/uL (4.8-10.8) Red Blood Count 3.94 M/uL (4.7-6.1) Hemoglobin 10.4 g/dL (14.0-18.0) Hematocrit 32.7 % (42-52) Mean Corpuscular Volume 83.0 fL (80-100) Mean Corpuscular Hemoglobin 26.4 pg (25-34) Mean Corpuscular Hemoglobin Concent 31.8 g/dl (32-36) Platelet Count 213 K/uL (130-400) Mean Platelet Volume 8.7 fL (7.4-10.4) Neutrophils (%) (Auto) 73.2 % Lymphocytes (%) (Auto) 18.7 % Monocytes (%) (Auto) 5.8 % Eosinophils (%) (Auto) 1.7 % Basophils (%) (Auto) 0.3 % Neutrophils # (Auto) 4.65 K/uL (1.4-6.5) Lymphocytes # (Auto) 1.19 K/uL (1.2-3.4) Monocytes # (Auto) 0.37 K/uL (0.11-0.59) Eosinophils # (Auto) 0.11 K/uL (0-0.5) Basophils # (Auto) 0.02 K/uL (0-0.2) RDW Standard Deviation 49.1 fL (36.4-46.3) RDW Coefficient of Variation 16.3 % (11.5-14.5) Immature Granulocyte % (Auto) 0.3 % Immature Granulocyte # (Auto) 0.02 K/uL (0.00-0.02) Prothrombin Time 11.4 SECONDS (9.0-12.0) Prothromb Time International Ratio 1.1 (0.9-1.1) Activated Partial Thromboplast Time 24.6 SECONDS (21.0-31.0) Partial Thromboplastin Ratio 0.9 Anion Gap 8.0 mmol/L (3-11) Est Creatinine Clear Calc Drug Dose 58.6 ml/min Estimated GFR () 48.8 Estimated GFR (Non- 42.1 BUN/Creatinine Ratio 14.3 (10-20) Calcium Level 9.3 mg/dl (8.5-10.1) Total Bilirubin 0.6 mg/dl (0.2-1) Direct Bilirubin 0.2 mg/dl (0-0.2) Aspartate Amino Transf (AST/SGOT) 13 U/L (15-37) Alanine Aminotransferase (ALT/SGPT) 15 U/L (12-78) Alkaline Phosphatase 133 U/L (45-117) Total Creatine Kinase 30 U/L (39-308) Creatine Kinase MB 1.5 ng/ml (0.5-3.6) Creatine Kinase MB Ratio 5.0 (0-3.0) Total Protein 7.8 gm/dl (6.4-8.2) Albumin 3.6 gm/dl (3.4-5.0) Lipase 165 U/L (73-393) Thyroid Stimulating Hormone (TSH) 4.340 uIu/ml (0.300-4.500) Random Cortisol 32.80 mcg/dl Bedside Troponin I < 0.030 ng/ml (0-0.045) Laboratory studies as stated above per my review. Medications Administered Medications (Trade) Dose Ordered Sig/Douglas Route Start Time Stop Time Status Last Admin Dose Admin Sodium Chloride 1,000 ml @ 999 mls/hr Q1H1M STAT IV 10/31/17 09:29 10/31/17 10:29 DC 10/31/17 09:29 999 MLS/HR Aspirin (Aspirin Chew) 324 mg NOW STAT PO 10/31/17 10:55 10/31/17 10:56 DC 10/31/17 11:09 324 MG ECG Per My Interpretation Indication: syncope Rate (beats per minute): 61 Rhythm: normal sinus Findings: other (No ST elevations. No PVCs. ) Comparison ECG Date: October 05, 2016 Change: no significant change ED Course 09: Past medical records reviewed. The patient was evaluated in room B7, and a complete history and physical examination were performed. 0929: Ordered Sodium Chloride 1000 ml @ 999 mls/hr IV. 1055: Ordered Aspirin Chew 324 mg PO. 1130: Upon reevaluation, the patient is resting comfortably. I discussed the results and treatment plan with the patient. He verbalized agreement of the treatment plan. The patient will be evaluated for further management. Medical Decision Differentials include, but are not limited to; syncope, arrhythmia, anemia, cardiac disease, infection and electrolyte or metabolic abnormality. This patient comes in after having a syncopal episode in his doctor's office. He says blood pressure was low and then he passed out briefly. There is no seizure. He has had no chest pain or shortness of breath. he does have an extensive cardiac history with about 7 stents in the past. Also, he is a diabetic and has an external fixator on his leg for surgery done relatively recently. There is no evidence suggest infection of his leg. His vital signs are stable here though he was hypotensive prior to arrival. he was given IV normal saline bolus while he was here. EKG does not suggest acute coronary syndrome or arrhythmias. initial cardiac biomarkers are negative. He has no acute electrolyte or metabolic abnormalities. His symptoms are not likely consistent with PE or thromboembolic disease. I do think he needs to be observed overnight for monitoring for arrhythmias and a cardiac rule out. I have consulted Dr. Ga who saw the patient in the ER for these measures. Medication Reconcilliation Current Medication List: was personally reviewed by me Blood Pressure Screening Patient's blood pressure: Normal blood pressure Blood pressure disposition: Did not require urgent referral Consults Time Called: 1054 Consulting Physician: Dr. Adan Wren [facility] [place] Hospitalist Returned Call: [phone] Discussed the patient's case. The patient will be evaluated for further management. Impression Primary Impression: Syncope Additional Impression: CAD (coronary artery disease) Scribe Attestation The scribe's documentation has been prepared under my direction and personally reviewed by me in its entirety. I confirm that the note above accurately reflects all work, treatment, procedures, and medical decision making performed by me. Departure Information Dispostion Being Evaluated By Hospitalist Referrals Yunior Kelly M.D. (PCP) Problem Qualifiers
[2017-10-31 11:52] VITALS: O2SAT 97; Ht 182.9 cm; Wt 97.8 kg
[2017-10-31] MEDS ORDERED: NITROGLYCERIN 0.4 MG SL PER TAB CHARGE UT PRN (12:15)
[2017-10-31] MEDS ORDERED: MAGNESIUM HYDROXIDE SUSP 30 ML UDC PO PRN (12:45)
[2017-10-31] MEDS ORDERED: ONDANSETRON INJ 2 MG/ML 2 ML VIAL IV PRN (12:45)
[2017-10-31] MEDS ORDERED: ZOLPIDEM TARTRATE 5 MG TAB PO PRN ×2 (12:45)
[2017-10-31] MEDS ORDERED: ACETAMINOPHEN 325 MG TAB PO PRN (12:45)
[2017-10-31] MEDS ORDERED: GLUCAGON FOR INJ 1 MG VIAL SQ PRN (12:45)
[2017-10-31] MEDS ORDERED: DEXTROSE 50% 50 ML SYR IV PRN (12:45)
[2017-10-31] MEDS ORDERED: GLUCOSE 40% GEL 15 GM TUBE PO PRN (12:45)
[2017-10-31] MEDS ORDERED: ALUMINUM/MAGNESIUM/SIMETH (MAALOX MAX) 30 ML UDC PO PRN (12:45)
[2017-10-31] MEDS ORDERED: GLUCOSE 10 TABS/TUBE PO PRN (12:45)
--- NOTE | 2017-10-31 12:47 | History and Physical ---
History & Physical Date & Time of Service: Oct 31, 2017 at 12:35 Chief Complaint: Syncope/Hypotension Primary Care Physician: Yunior Kelly M.D. History of Present Illness Source: patient, spouse 52 years old man with past medical history of diabetes mellitus type 2 insulin requiring, chronic kidney disease with baseline creatinine around 2, coronary artery disease status post multiple PCI and multiple stents, hypothyroidism, dyslipidemia and recent major construction surgery for left foot with external fixator. 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 Complained of some burning sensation in the urine the last few days. When he suddenly passed out. As per staff at the office the nurse was not able to detect any pulse for about 2 minutes, his was missing for 5 minutes because she went to auscultation at the nursing station by the time she came back he was started to come around. His blood pressure was low initially but I am not sure how low. He was sent to the ED and on arrival his systolic blood pressure was 106. He always remained bradycardic in the range of 60s but he is on 25 mg of carvedilol that might have masked any underlying tachycardia. Currently he has no any complaint or symptoms except of feeling tired and fatigued. He had a burning sensation in the urine that he attributed to renal stones. He has been taking his medications regularly. Blood sugar when he passed out at the card grader office was 160. He has been immobile due to the external fixator for the last 6 weeks Patient's left ventricular function was reduced in the past, but after his coronary stents his ejection fraction improved. Past Medical/Surgical History Medical Problems: (1) Back pain (2) Back pain (3) Back strain (4) CAD (coronary artery disease) (5) Charcot foot due to diabetes mellitus (6) Diab W Ophthal Manifest, Type Ii Or Unspec Type, Uncntrld (7) Diabetic peripheral neuropathy associated with type 2 diabetes mellitus (8) Foot deformity (9) Gout (10) Gout (11) Heart disease (12) History of diabetic ulcer of foot (13) Hyperlipidemia Nec/Nos (14) Hypertension Nos (15) Kidney stone (16) Loss of sensation Family History Cancer Diabetes mellitus Gallbladder disease Heart disease Hypertension Lung disease Social History Smoking Status: Never Smoker Marital Status: Housing status: lives with family Occupational Status: employed Immunizations History of Influenza Vaccine: No History of Tetanus Vaccine?: Unknown History of Pneumococcal: Unknown History of Hepatitis B Vaccine: Unknown Allergies Coded Allergies: Lisinopril (Verified Allergy, Unknown, cough, 10/31/17) Home Medications Scheduled Allopurinol (Zyloprim), 300 MG PO DAILY Aspirin (Aspirin Ec), 81 MG PO DAILY Carvedilol (Coreg), 25 MG PO DAILY Chlorthalidone (Hygroton), 25 MG PO DAILY Clopidogrel (Plavix), 75 MG PO DAILY Ergocalciferol (Vitamin D 52960 Unit), 50,000 UNITS PO MONTHLY Fenofibrate (Tricor), 48 MG PO DAILY Indomethacin (Indocin), 50 MG PO TID Insulin Aspart (Novolog), 1 DOSE SC ACHS Insulin Glargine (Basaglar Kwikpen), 50 UNITS SC QPM Isosorbide Mononitrate Ext Rel (Imdur Ext Rel), 30 MG PO DAILY Levothyroxine Sodium (Levothyroxine Sodium), 112 MCG PO DAILY Nitroglycerin (Nitrostat), 0.4 MG UT PRN Rosuvastatin Calcium (Crestor), 40 MG PO HS Scheduled PRN Glucagon (Glucagon Emergency Kit), 1 DOSE SC UD PRN for Hypoglycemia Treatment Review of Systems Review of system Constitutional: No fever / no chills / no sweats /generalized fatigue Eyes: no blurring of vision / no eye pain / no discharge / no redness ENT: no hearing loss / no epistaxis /no swallowing problems Respiratory: no cough / no wheezing / no SOB / no hemoptysis Cardiovascular: no Chest pain / no lower extremity edema / no palpitation Abdomen: no pain / no nausea / no vomiting / no constipation Musculoskeletal: no joint pain / no muscle pain / no joint swelling Genitourinary: Positive for burning sensation in the urine/ no incontinence / no urinary retention Neurologic: no focal weakness / no numbness/tingling / no ataxia Psychiatric: no depression symptoms / no anxiety / no insomnia Endocrine: no excessive thirst / no excessive urination Hematologic: no abnormal bleeding / no bruising / no LN swelling Skin: No rash / no pallor Physical Exam Vital Signs Date Time Temp Pulse Resp B/P (MAP) Pulse Ox O2 Delivery O2 Flow Rate FiO2 10/31/17 11:52 97 Room Air 10/31/17 10:44 67 16 128/79 97 Room Air 10/31/17 09:57 61 16 106/71 96 Room Air 10/31/17 09:27 36.9 60 16 106/73 96 Room Air 10/31/17 09:24 61 Physical examination General patient appears to be comfortable, not in acute distress HEENT: Atraumatic , normocephalic /no jaundice /no pallor /anicteric /no dry mucous membrane /normal external ear inspection Neck: Supple /no swelling /central trach Heart: S1/S2 normal/regular rate and rhythm/no gallop /no rub /no murmur Lungs: Clear to auscultation bilaterally/normal chest with expansion/no rhonchi/ no rales/no wheezing/no use of accessory muscles of respiration Abdomen: Soft/nontender/no guarding/no rebound/no organomegaly/no pulsatile mass Musculoskeletal: No swelling/no edema/no tenderness/normal range of motion, external fixator on left lower extremity, all the exit sites look clean and dry , fluid does not look infected Neuro exam: Awake alert oriented 3/cranial nerves II through XII appear to be intact/sensation intact/moves all extremities/no abnormal movements Psychiatric evaluation: No depressed mood/normal affect Skin: No rash on exposed skin area/no erythema Extremity: Normal pulse/no pitting edema/no clubbing or cyanosis Endocrine/lymphatic: No obvious lymphadenopathy /no lymphedema Diagnostics Laboratory Results Results Past 24 Hours Test 10/31/17 09:50 10/31/17 09:51 Range/Units White Blood Count 6.36 4.8-10.8 K/uL Red Blood Count 3.94 4.7-6.1 M/uL Hemoglobin 10.4 14.0-18.0 g/dL Hematocrit 32.7 42-52 % Mean Corpuscular Volume 83.0 80-100 fL Mean Corpuscular Hemoglobin 26.4 25-34 pg Mean Corpuscular Hemoglobin Concent 31.8 32-36 g/dl Platelet Count 213 130-400 K/uL Mean Platelet Volume 8.7 7.4-10.4 fL Neutrophils (%) (Auto) 73.2 % Lymphocytes (%) (Auto) 18.7 % Monocytes (%) (Auto) 5.8 % Eosinophils (%) (Auto) 1.7 % Basophils (%) (Auto) 0.3 % Neutrophils # (Auto) 4.65 1.4-6.5 K/uL Lymphocytes # (Auto) 1.19 1.2-3.4 K/uL Monocytes # (Auto) 0.37 0.11-0.59 K/uL Eosinophils # (Auto) 0.11 0-0.5 K/uL Basophils # (Auto) 0.02 0-0.2 K/uL RDW Standard Deviation 49.1 36.4-46.3 fL RDW Coefficient of Variation 16.3 11.5-14.5 % Immature Granulocyte % (Auto) 0.3 % Immature Granulocyte # (Auto) 0.02 0.00-0.02 K/uL Prothrombin Time 11.4 9.0-12.0 SECONDS Prothromb Time International Ratio 1.1 0.9-1.1 Activated Partial Thromboplast Time 24.6 21.0-31.0 SECONDS Partial Thromboplastin Ratio 0.9 Sodium Level 139 136-145 mmol/L Potassium Level 4.1 3.5-5.1 mmol/L Chloride Level 106 98-107 mmol/L Carbon Dioxide Level 26 21-32 mmol/L Anion Gap 8.0 3-11 mmol/L Blood Urea Nitrogen 26 7-18 mg/dl Creatinine 1.83 0.60-1.40 mg/dl Est Creatinine Clear Calc Drug Dose 58.6 ml/min Estimated GFR () 48.8 Estimated GFR (Non- 42.1 BUN/Creatinine Ratio 14.3 10-20 Random Glucose 173 70-99 mg/dl Calcium Level 9.3 8.5-10.1 mg/dl Total Bilirubin 0.6 0.2-1 mg/dl Direct Bilirubin 0.2 0-0.2 mg/dl Aspartate Amino Transf (AST/SGOT) 13 15-37 U/L Alanine Aminotransferase (ALT/SGPT) 15 12-78 U/L Alkaline Phosphatase 133 45-117 U/L Total Creatine Kinase 30 39-308 U/L Creatine Kinase MB 1.5 0.5-3.6 ng/ml Creatine Kinase MB Ratio 5.0 0-3.0 Total Protein 7.8 6.4-8.2 gm/dl Albumin 3.6 3.4-5.0 gm/dl Lipase 165 73-393 U/L Thyroid Stimulating Hormone (TSH) 4.340 0.300-4.500 uIu/ml Bedside Troponin I < 0.030 0-0.045 ng/ml Microbiology Results 10/31/17 Blood Culture, Ordered Pending 10/31/17 Blood Culture, Ordered Pending Impression Assessment and Plan 52 years old man with past medical history of diabetes mellitus type 2 insulin requiring, chronic kidney disease with baseline creatinine around 2, coronary artery disease status post multiple PCI and multiple stents, hypothyroidism, dyslipidemia and recent major construction surgery for left foot with external fixator. Presented to the hospital with an episode of syncope where his pulse was undetected for 2 minutes. Assessment Syncope with a broad differential diagnosis, including vasovagal, cardiac arrhythmia or pulmonary embolism. His pulse was undetected for 2 minute, but I doubt that he was pulseless because he regained full consciousness immediately after without any resuscitation, also pulse was being checked on the radial not carotid. Diabetes mellitus type 2 insulin requiring Essential hypertension, currently hypotensive Hypothyroidism Coronary artery disease status post multiple stents Burning sensation in the urine rule out UTI Left lower extremity reconstruction with external fixator Chronic kidney disease stage III, currently at baseline Plan Admit patient to telemetry Patient is out of the reconstruction surgery for 5 weeks, will check his d- dimer which should be back to normal if not then we will pursue with a VQ scan as his creatinine is 1.8 He does not have tachycardia or hypoxia, but tachycardia could be masked by large dose carvedilol. We will lower his blood pressure medications, stopped chlorthalidone, decreased carvedilol from 25 mg twice daily to 12.5 mg twice daily and can decrease further if needed. Obtain 2D echo and consult radiology technologist for potential event monitor, or loop recorder as an outpatient Continue patient insulin and add sliding scale insulin Continue Synthroid, TSH is within normal limits Follow-up potassium and magnesium levels Ordered urine analysis with urine culture, ordered blood culture giving his low blood pressure in the presence of external fixator that might be a source of infection. Heparin for DVT prophylaxis Advanced Directives Existing Living Will: Yes Existing Power of Reimbursement Analyst: No Resuscitation Status VTE Prophylaxis Will order VTE Prophylaxis: Yes
[2017-10-31] MEDS ORDERED: POLYETHYLENE (MIRALAX) 17 GM PACK PO PRN (13:15)
[2017-10-31 14:04] VITALS: O2SAT 97
--- NOTE | 2017-10-31 14:10 | ECHOCARDIOGRAM REPORT ---
*NOTICE TO RECEIVING DEMOCRAT AGENCY This information is strictly Confidential and protected under [place] law. [place] law prohibits you from making any further disclosure of this information unless further disclosure is expressly permitted by the written consent of the person to whom it pertains or is authorized by law. A general authorization for the release of medical or other information is not sufficient for this purpose. Hospital accepts no responsibility if the information is made available to any other person, INCLUDING THE PATIENT. Interpretation Summary * Name: ARAVIND GRIDER Study Date: 10/31/2017 01:10 PM BP: 124/71 mmHg * Patient Location: C.EDB HR: 60 * : 1965 (M/d/yyyy) Gender: Male Height: 72 in * Age: 52 yrs Ethnicity: CA Weight: 216 lb * Ordering Physician: Samantha Woods * Referring Physician: Self, Referred * Performed By: Zelda Herman RCS * * Reason For Study: SUSPECTED PULSELESS ARREST * BSA: 2.2 m2 * -- Conclusions -- * Left ventricular systolic function is normal. * No regional wall motion abnormalities noted. * Ejection Fraction = 55-60%. * There is borderline concentric left ventricular hypertrophy. * No significant valvular pathology. Procedure Details * A complete two-dimensional transthoracic echocardiogram was performed (2D, M-mode, Doppler and color flow Doppler). Left Ventricle * The left ventricle is normal in size. * There is borderline concentric left ventricular hypertrophy. * Left ventricular systolic function is normal. * Ejection Fraction = 55-60%. * No regional wall motion abnormalities noted. Right Ventricle * The right ventricle is grossly normal size. * The right ventricular systolic function is normal as assessed by tricuspid annular plane systolic excursion (TAPSE) (normal >1.5 cm). Atria * The left atrium is mildly dilated. * Right atrial size is normal. * No ASD detected; PFO is not assessed. Mitral Valve * The mitral valve anatomy is normal. * There is no mitral valve stenosis. * There is trace mitral regurgitation. Tricuspid Valve * The tricuspid valve anatomy is normal. * There is no tricuspid stenosis. * Significant tricuspid regurgitation is absent. Aortic Valve * The aortic valve is trileaflet. * The aortic valve opens well. * No hemodynamically significant valvular aortic stenosis. * There is no significant aortic regurgitation. Pulmonic Valve * The pulmonary valve is not well seen, but the Doppler examination is normal without significant regurgitation or stenosis. Great Vessels * The aortic root is normal size. * The pulmonary artery is not well visualized, but is probably normal size. Pericardium/Pleural * There is no pericardial effusion. Great Vessels * Normal inferior vena cava size and collapsability with sniff indicates a normal right atrial pressure of 3 mmHg MMode 2D Measurements and Calculations IVSd 1.4 cm IVSs 2.0 cm LVIDd 4.7 cm LVIDs 3.0 cm LVPWd 1.1 cm LVPWs 1.6 cm IVS/LVPW 1.2 FS 36.3 % EDV(Teich) 103.2 ml ESV(Teich) 35.2 ml EF(Teich) 65.9 % EDV(cubed) 104.9 ml ESV(cubed) 27.1 ml EF(cubed) 74.1 % % IVS thick 42.5 % % LVPW thick 38.6 % LV mass(C)d 230.1 grams LV mass(C)dI 104.5 grams/m\S\2 LV mass(C)s 213.8 grams LV mass(C)sI 97.1 grams/m\S\2 SV(Teich) 68.0 ml SI(Teich) 30.9 ml/m\S\2 SV(cubed) 77.8 ml SI(cubed) 35.3 ml/m\S\2 Ao root diam 3.5 cm Ao root area 9.5 cm\S\2 ACS 2.1 cm LA dimension 3.8 cm LA/Ao 1.1 LVOT diam 2.0 cm LVOT area 3.1 cm\S\2 LVAd ap4 32.8 cm\S\2 LVLd ap4 8.5 cm EDV(MOD-sp4) 103.9 ml EDV(sp4-el) 107.0 ml LVAs ap4 19.2 cm\S\2 LVLs ap4 6.8 cm ESV(MOD-sp4) 49.3 ml ESV(sp4-el) 46.0 ml EF(MOD-sp4) 52.6 % EF(sp4-el) 57.0 % LVAd ap2 36.7 cm\S\2 LVLd ap2 9.0 cm EDV(MOD-sp2) 123.4 ml EDV(sp2-el) 127.7 ml LVAs ap2 22.6 cm\S\2 LVLs ap2 7.1 cm ESV(MOD-sp2) 59.2 ml ESV(sp2-el) 60.8 ml EF(MOD-sp2) 52.0 % EF(sp2-el) 52.4 % LVLd %diff 4.5 % EDV(MOD-bp) 112.0 ml LVLs %diff 4.0 % ESV(MOD-bp) 51.7 ml EF(MOD-bp) 53.8 % SV(MOD-sp4) 54.6 ml SI(MOD-sp4) 24.8 ml/m\S\2 SV(MOD-sp2) 64.2 ml SI(MOD-sp2) 29.2 ml/m\S\2 SV(MOD-bp) 60.3 ml SI(MOD-bp) 27.4 ml/m\S\2 SV(sp4-el) 61.0 ml SI(sp4-el) 27.7 ml/m\S\2 SV(sp2-el) 66.9 ml SI(sp2-el) 30.4 ml/m\S\2 Doppler Measurements and Calculations MV E max jose luis 61.8 cm/sec MV A max jose luis 58.1 cm/sec MV E/A 1.1 MV P1/2t max jose luis 74.4 cm/sec MV P1/2t 103.3 msec MVA(P1/2t) 2.1 cm\S\2 MV dec slope 210.9 cm/sec\S\2 MV dec time 0.31 sec
[2017-10-31] MEDS ORDERED: IV FLUIDS COMPLETED PRN (14:15)
[2017-10-31 14:31] VITALS: BP 127/74; PULSE 64; TEMP 36.8; O2SAT 98
[2017-10-31] MEDS ORDERED: SODIUM CHLORIDE 0.9% 1000ML 1,000 ML IV SCH (15:00)
[2017-10-31 15:37] VITALS: BP 132/76; PULSE 63; TEMP 36.3; O2SAT 97
[2017-10-31] MEDS: HEPARIN SOD 5000 UNIT/0.5 ML CARP SQ SCH ×2 (15:53→21:55)
--- NOTE | 2017-10-31 17:10 | CARDIOLOGY CONSULTATION ---
DATE OF CONSULTATION: 10/31/2017 Cardiology consultation. PERTINENT HISTORY: Mr. Ayers is a 52-year-old white male with a complex past medical history who was admitted today after an episode of syncope. This consultation was ordered to assist in his management. Patient was in his usual state of health until earlier today. He was in our office meeting with CAROLYNN Aguirre. The patient had the abrupt onset of dizziness and then had an episode of syncope. According to his report, he was seated in a chair. He awoke and then ambulated with assistance over to the examination table. At no time did he complain of nausea, vomiting, or diaphoresis. However, the patient explains that he has had nothing to eat since 2:00 yesterday afternoon. He took his usual medications this morning with little water. The patient's blood sugar was checked while at the office and was found to be 160. The patient's cardiac history began back in November 2010 when he had 2 drug-eluting stents placed in the proximal LAD and 1 drug-eluting stent placed in the mid right coronary artery. This was performed because of crescendo angina pectoris. The patient did well until September 2016 when he underwent a cardiac catheterization as he failed a stress test. He had a staged procedure performed with a drug-eluting stent placed in distal RCA on 09/23/2016. On 10/05/2016, patient had total of 3 stents placed within the proximal left circumflex into the second obtuse marginal branch. The patient has done well from a cardiac standpoint since that time, was just seen by Dr. Pringle on 09/30/2017. He has no complaints of exertional angina pectoris. At the time of his cardiac catheterization in October 2016, the patient was noted to have luminal irregularities in the left main, a 30-40% proximal LAD stenosis, and patent stents. Currently, he is resting comfortably in bed without complaints. Of note, his left lower extremity is in an external fixator as he had had several reconstructive surgeries for the left ankle fracture since 11/2016. PAST MEDICAL HISTORY: 1. Coronary artery disease -- see above. 2. LAD and RCA drug-eluting stents -- 11/2010. 3. Right coronary artery stents -- 09/2016. 4. Proximal left circumflex drug-eluting stents x3 -- 10/2016. 5. History of ischemic cardiomyopathy -- resolved. 6. Hypertension. 7. Hypercholesterolemia. 8. Diabetes mellitus. 9. Chronic renal failure. 10. Hypothyroidism. 11. Diabetic polyneuropathy. 12. Diabetic retinopathy. 13. Gout. 14. Nephrolithiasis. 15. Left ankle fracture - November 2013. 16. Carpal tunnel syndrome. 17. Colonic polyps. 18. Vitamin D deficiency. MEDICATIONS: 1. Heparin 5000 units subQ q. 8 hours. 2. Carvedilol 12.5 mg b.i.d. 3. Imdur 30 mg daily. 4. Aspirin 81 mg per day. 5. Plavix 75 mg per day. 6. Crestor 40 mg at bedtime. 7. TriCor 48 mg daily. 8. Synthroid 0.112 mg daily. 9. Lantus 50 units subQ at bedtime. SOCIAL HISTORY: The patient is and lives with his . Works in [employer] at [facility]. Does not use tobacco. Alcohol use is rare. FAMILY HISTORY: No early coronary artery disease. REVIEW OF SYSTEMS: A 10-point review of systems was negative except for that described above. PHYSICAL EXAMINATION: GENERAL: This is a well-developed, well-nourished white male in no acute distress. VITAL SIGNS: Blood pressure is 127/74 with a regular pulse of 64. Respiratory rate is 20. The patient is afebrile at 36.8 degrees Celsius. Saturation is 98% on room air. NECK: Supple with full carotid upstrokes. No carotid bruits. Jugular venous pressure is flat at 90 degrees. There is no thyromegaly. CARDIOVASCULAR: Reveals a regular rhythm with normal S1, S2. Heart sounds are distant. No obvious murmurs. LUNGS: Clear without rales, rhonchi, or wheeze. ABDOMEN: Soft, nontender without bruits. EXTREMITIES: Show intact radial artery pulses bilaterally. There is no peripheral edema. Left lower extremity is in external fixator. DATA: CBC notes hemoglobin 10.4, hematocrit 32.7, white count 6.36, platelet count 213,000. Electrolytes note a sodium of 139, potassium of 4.1, chloride 106, bicarbonate 26, BUN 26, creatinine 1.83, glucose 173. Point of care troponin is undetectable less than 0.03. CK is 30 with an MB fraction of 1.5. TSH was normal at 4.34. EKG notes sinus rhythm with voltage criteria for LVH. Chest x-ray shows no acute disease. IMPRESSION: Mr. Ayers was admitted after an episode of syncope. By his report, he had had nothing to eat since 2 o'clock yesterday afternoon, administered all his medications as usual this morning. He has had a similar episode in the past while under the same circumstances. Would simply watch on telemetry. No further cardiac evaluation necessary at this time. PLAN: 1. Continue usual cardiac medications. 2. Observe on telemetry. 3. Further recommendations pending on his clinical course.
[2017-10-31] MEDS: INSULIN ASPART 100 UNITS/ML 3 ML PEN SC SCH ×2 (17:44→20:56)
[2017-10-31 20:04] VITALS: BP 126/81; PULSE 63; TEMP 36.3; O2SAT 94
[2017-10-31] MEDS ORDERED: ROSUVASTATIN CALCIUM 20 MG TAB PO SCH (21:00)
[2017-10-31] MEDS ORDERED: INSULIN GLARGINE SOLOSTAR 100 UNITS/ML 3 ML PEN SC SCH (21:00)
--- NOTE | 2017-10-31 22:21 | DIAGNOSTIC IMAGING REPORT ---
LUNG IMAGING VQ CLINICAL HISTORY: Chest pain. Dyspnea. COMPARISON: None TECHNIQUE: For the ventilation portion of this exam, 33 mCi of DTPA was inhaled at 9:15 PM. Immediately following inhalation, imaging of the chest was carried out in the anterior, posterior, left lateral, right lateral, LPO, RPO, NEPALESE and KIDD projections. For the perfusion portion of exam, 6.2 mCi of technetium 99m MAA was injected IV at 9:40 PM. Immediately following injection, imaging of the chest was carried out in the same projections. FINDINGS: Uniform activity characteristics throughout both hemithoraces. This is seen both on perfusion as well as ventilation. There is no evidence for significant ventilation/perfusion mismatch. IMPRESSION: Normal lung scan. The above report was generated using voice recognition software. It may contain grammatical, syntax or spelling errors. Electronically signed by: Eliud Cruz M.D. 10/31/2017 10:20 PM Dictated Date/Time: 10/31/2017 10:18 PM
[2017-10-31 23:53] VITALS: BP 125/72; PULSE 71; TEMP 36.9; O2SAT 97
[2017-11-01 04:25] VITALS: BP 115/67; PULSE 81; TEMP 36.9; O2SAT 97
[2017-11-01] MEDS: HEPARIN SOD 5000 UNIT/0.5 ML CARP SQ SCH (06:03)
[2017-11-01] MEDS ORDERED: LEVOTHYROXINE 112 MCG TAB PO SCH (06:30)
[2017-11-01 07:19] VITALS: BP 110/72; PULSE 65; TEMP 36.9; O2SAT 97
[2017-11-01] MEDS: INSULIN ASPART 100 UNITS/ML 3 ML PEN SC SCH (08:23)
[2017-11-01] MEDS ORDERED: CARVEDILOL 12.5 MG TAB PO SCH (09:00)
[2017-11-01] MEDS ORDERED: ISOSORBIDE MONONITRATE 30 MG TABCR PO SCH (09:00)
[2017-11-01] MEDS ORDERED: FENOFIBRATE 48 MG TAB PO SCH (09:00)
[2017-11-01] MEDS ORDERED: ASPIRIN 81 MG ECTAB PO SCH (09:00)
[2017-11-01] MEDS ORDERED: ALLOPURINOL 100 MG TAB PO SCH (09:00)
[2017-11-01] MEDS ORDERED: CLOPIDOGREL BISULFATE 75 MG TAB PO SCH (09:00)
--- NOTE | 2017-11-01 09:06 | Hospitalist Progress Note ---
Hospitalist Progress Note Date of Service November 01, 2017. Objective Vital Signs Date Time Temp Pulse Resp B/P (MAP) Pulse Ox O2 Delivery O2 Flow Rate FiO2 11/01/17 07:47 Room Air 11/01/17 07:19 36.9 65 18 110/72 (85) 97 Room Air 11/01/17 04:25 36.9 81 16 115/67 (83) 97 Room Air 11/01/17 04:00 Room Air 11/01/17 00:00 Room Air 10/31/17 23:53 36.9 71 16 125/72 (89) 97 Room Air 10/31/17 20:04 36.3 63 20 126/81 (96) 94 10/31/17 20:00 Room Air 10/31/17 15:37 36.3 63 20 132/76 (94) 97 10/31/17 14:31 36.8 64 20 127/74 (91) 98 Room Air 10/31/17 14:04 62 18 117/70 97 10/31/17 12:58 64 10/31/17 12:30 62 18 124/71 96 Room Air 10/31/17 11:52 97 Room Air 10/31/17 10:44 67 16 128/79 97 Room Air 10/31/17 09:57 61 16 106/71 96 Room Air 10/31/17 09:27 36.9 60 16 106/73 96 Room Air 10/31/17 09:24 61 Laboratory Results Last 24 Hours Test 10/31/17 09:50 10/31/17 09:51 10/31/17 13:54 10/31/17 14:34 White Blood Count 6.36 K/uL Red Blood Count 3.94 M/uL Hemoglobin 10.4 g/dL Hematocrit 32.7 % Mean Corpuscular Volume 83.0 fL Mean Corpuscular Hemoglobin 26.4 pg Mean Corpuscular Hemoglobin Concent 31.8 g/dl Platelet Count 213 K/uL Mean Platelet Volume 8.7 fL Neutrophils (%) (Auto) 73.2 % Lymphocytes (%) (Auto) 18.7 % Monocytes (%) (Auto) 5.8 % Eosinophils (%) (Auto) 1.7 % Basophils (%) (Auto) 0.3 % Neutrophils # (Auto) 4.65 K/uL Lymphocytes # (Auto) 1.19 K/uL Monocytes # (Auto) 0.37 K/uL Eosinophils # (Auto) 0.11 K/uL Basophils # (Auto) 0.02 K/uL RDW Standard Deviation 49.1 fL RDW Coefficient of Variation 16.3 % Immature Granulocyte % (Auto) 0.3 % Immature Granulocyte # (Auto) 0.02 K/uL Prothrombin Time 11.4 SECONDS Prothromb Time International Ratio 1.1 Activated Partial Thromboplast Time 24.6 SECONDS Partial Thromboplastin Ratio 0.9 Sodium Level 139 mmol/L Potassium Level 4.1 mmol/L Chloride Level 106 mmol/L Carbon Dioxide Level 26 mmol/L Anion Gap 8.0 mmol/L Blood Urea Nitrogen 26 mg/dl Creatinine 1.83 mg/dl Est Creatinine Clear Calc Drug Dose 58.6 ml/min Estimated GFR () 48.8 Estimated GFR (Non- 42.1 BUN/Creatinine Ratio 14.3 Random Glucose 173 mg/dl Calcium Level 9.3 mg/dl Total Bilirubin 0.6 mg/dl Direct Bilirubin 0.2 mg/dl Aspartate Amino Transf (AST/SGOT) 13 U/L Alanine Aminotransferase (ALT/SGPT) 15 U/L Alkaline Phosphatase 133 U/L Total Creatine Kinase 30 U/L Creatine Kinase MB 1.5 ng/ml Creatine Kinase MB Ratio 5.0 Total Protein 7.8 gm/dl Albumin 3.6 gm/dl Lipase 165 U/L Thyroid Stimulating Hormone (TSH) 4.340 uIu/ml Random Cortisol 32.80 mcg/dl Bedside Troponin I < 0.030 ng/ml Bedside D-Dimer > 450 ng/mlFEU Bedside Glucose 158 mg/dl Test 10/31/17 15:55 10/31/17 16:08 10/31/17 16:20 10/31/17 18:42 Urine Color YELLOW Urine Appearance CLEAR Urine pH 7.5 Urine Specific [place] 1.017 Urine Protein NEG Urine Glucose (UA) TRACE Urine Ketones NEG Urine Occult Blood NEG Urine Nitrite NEG Urine Bilirubin NEG Urine Urobilinogen NEG Urine Leukocyte Esterase NEG Bedside Glucose 131 mg/dl D-Dimer 2860 ug/L FEU Troponin I < 0.015 ng/ml Test 10/31/17 20:54 11/01/17 00:23 11/01/17 06:14 Bedside Glucose 143 mg/dl Troponin I < 0.015 ng/ml < 0.015 ng/ml Assessment and Plan 52 years old man with past medical history of diabetes mellitus type 2 insulin requiring, chronic kidney disease with baseline creatinine around 2, coronary artery disease status post multiple PCI and multiple stents, hypothyroidism, dyslipidemia and recent major construction surgery for left foot with external fixator. Presented to the hospital with an episode of syncope where his pulse was undetected for 2 minutes. Syncope CAD with hx 3 stents in the prox LCx into the 2nd OM. - cont on tele - with a broad differential diagnosis, including vasovagal, cardiac arrhythmia or pulmonary embolism. - His pulse was undetected for 2 minute, but I doubt that he was pulseless because he regained full consciousness immediately after without any resuscitation, also pulse was being checked on the radial not carotid. - He does not have tachycardia or hypoxia, but tachycardia could be masked by large dose carvedilol. - We will lower his blood pressure medications, stopped chlorthalidone, decreased carvedilol from 25 mg twice daily to 12.5 mg twice daily and can decrease further if needed. - Obtain 2D echo - Consult tray packer- Dr Bentley - no further recs at this time other than monitor on tele - will resume home meds and assess. - Follows with Dr. Pringle as outpatient. Essential hypertension, currently hypotensive Hypothyroidism Coronary artery disease status post multiple stents Burning sensation in the urine rule out UTI - Follow UA and Ucx Chronic kidney disease stage III, currently at baseline Left lower extremity reconstruction with external fixator Patient is out of the reconstruction surgery for 5 weeks, will check his d- dimer which should be back to normal if not then we will pursue with a VQ scan as his creatinine is 1.8 DM II Continue patient insulin and add sliding scale insulin Hypothyroidism - Continue Synthroid, TSH is within normal limits Follow-up potassium and magnesium levels Ordered urine analysis with urine culture, ordered blood culture giving his low blood pressure in the presence of external fixator that might be a source of infection. DVT ppx: heparin subq CODE: FULL Disposition:
--- NOTE | 2017-11-01 10:25 | Discharge Instructions ---
Discharge Instructions Date of Service November 01, 2017. Admission Reason for Admission: Syncope Discharge Discharge Diagnosis / Problem: Orthostatic hypotension Discharge Goals Goal(s): Decrease discomfort, Improve function, Increase independence, Improve disease control Activity Recommendations Activity Limitations: resume your previous activity Lifting Limitations: no more than 25 pounds, gradually increase as tolerated Exercise/Sports Limitations: gradually increase as tolerated, until after follow-up appointment (with orthopedics regarding Left foot) May Resume Sexual Activity: when tolerated Shower/Bathe: no limitations Driving or Machine Use: After follow up with PCP/ortho . Instructions / Follow-Up Instructions / Follow-Up You were admitted to [facility] with syncope and diagnosed with orthostatic hypotension. During your stay here you were evaluated by cardiology, had overnight telemetry monitoring, and other supportive care. Cardiac enzymes x 3 were negative. Imaging studies which were completed include VQ scan to rule out possible lung blood clot, and was normal, ie negative for any clot. Medications: Please stop indomethacin as your kidney function was slightly elevated Take carvedilol 12.5 mg twice daily instead of 25 mg twice daily. Please watch your blood pressure closely: take BP once daily and show this to your PCP during follow up appointment. Continue taking your other medications as prescribed. Appointments: Follow up with PCP within 1 week. Follow up with cardiology within 4 weeks. Follow up with orthopedic surgery as already scheduled. Current Hospital Diet Patient's current hospital diet: Diabetes Type 2 Diet Discharge Diet Recommended Diet: AHA Diet (Heart Healthy), Diabetes Type 2 Diet Pending Studies Studies pending at discharge: no Medical Emergencies . Who to Call and When: Medical Emergencies: If at any time you feel your situation is an emergency, please call 911 immediately. . Non-Emergent Contact Non-Emergency issues call your: Primary Care Provider Call Non-Emergent contact if: you have a fever, temperature is above 100.5, your pain is not controlled, your pain is worsening, your pain is unusual for you, your pain is concerning you, you have any medication questions other concerns with your health. Call 911 or go directly to the Emergency Department if you experience any of the following: Chest pain, chest tightness, shortness of breath, abdominal pain , lightheadedness, dizziness, gastrointestinal bleeding, or have any other concerns regarding your health. . Past History Medical & Surgical History: (1) Syncope (2) CAD (coronary artery disease) (3) History of diabetic ulcer of foot (4) Hypertension Nos (5) Heart disease (6) Diabetic peripheral neuropathy associated with type 2 diabetes mellitus (7) Hyperlipidemia Nec/Nos . "Provider Documentation" section prepared by Mehnaz Grant. . [place] Drug Monitoring Program Search Results: no issues identified
[2017-11-01 10:44] VITALS: BP 110/72; PULSE 65; TEMP 36.9; O2SAT 97
[2017-11-01] MEDS ORDERED: CRG125 PO (10:51)
--- NOTE | 2017-11-01 15:43 | Discharge Summary ---
Discharge Summary Date of Service November 01, 2017. Discharge Summary Admission Date: Oct 31, 2017 at 12:52 Discharge Date: November 01, 2017 Discharge Disposition: Home Principal Diagnosis: Orthostatic hypotension Problems/Secondary Diagnoses: Medical Problems: (1) CAD (coronary artery disease) (2) Charcot foot due to diabetes mellitus (3) Diab W Ophthal Manifest, Type Ii Or Unspec Type, Uncntrld (4) Diabetic peripheral neuropathy associated with type 2 diabetes mellitus (5) Foot deformity (6) Gout (7) Heart disease (8) History of diabetic ulcer of foot (9) Hyperlipidemia Nec/Nos (10) Hypertension Nos (11) Kidney stone (12) Loss of sensation Immunizations: Have You Had Influenza Vaccine: No History of Tetanus Vaccine?: Unknown History of Pneumococcal: Unknown History of Hepatitis B Vaccine: Unknown Procedures: CHEST ONE VIEW PORTABLE 10/31/17 IMPRESSION: 1. No acute cardiopulmonary disease. LUNG IMAGING VQ 10/31/17 FINDINGS: Uniform activity characteristics throughout both hemithoraces. This is seen both on perfusion as well as ventilation. There is no evidence for significant ventilation/perfusion mismatch. IMPRESSION: Normal lung scan. Consultations: Cardiology Medication Reconciliation New Medications: Carvedilol (Carvedilol) 12.5 Mg Tab 12.5 MG PO BID for 30 Days, #60 TAB Continued Medications: Allopurinol (Zyloprim) 100 Mg Tab 300 MG PO DAILY, TAB Aspirin (Aspirin Ec) 81 Mg Tab 81 MG PO DAILY Chlorthalidone (Hygroton) 25 Mg Tab 25 MG PO DAILY for 30 Days, #30 TAB 5 Refills Clopidogrel (Plavix) 75 Mg Tab 75 MG PO DAILY for 30 Days, #30 TAB 9 Refills Ergocalciferol (Vitamin D 49998 Unit) 50,000 Unit Cap 73926 UNITS PO MONTHLY for 28 Days, #4 CAP 5 Refills Fenofibrate (Tricor) 48 Mg Tab 48 MG PO DAILY for 30 Days, #30 TAB 5 Refills Glucagon (Glucagon Emergency Kit) 1 Mg Kit 1 DOSE SC UD PRN for Hypoglycemia Treatment Insulin Aspart (Novolog) 100 Units/Ml Inj 1 DOSE SC ACHS PER SLIDING SCALE Insulin Glargine (Basaglar Kwikpen) 100 Unit/Ml Inj 50 UNITS SC QPM Isosorbide Mononitrate Ext Rel (Imdur Ext Rel) 30 Mg Ertab 30 MG PO DAILY for 30 Days, #30 TAB 5 Refills Levothyroxine Sodium (Levothyroxine Sodium) 112 Mcg Tab 112 MCG PO DAILY Nitroglycerin (Nitrostat) 0.4 Mg Sub 0.4 MG UT PRN, BTL Rosuvastatin Calcium (Crestor) 40 Mg Tab 40 MG PO HS, TAB Discontinued Medications: Carvedilol (Coreg) 25 Mg Tab 25 MG PO DAILY, TAB Indomethacin (Indocin) 50 Mg Cap 50 MG PO TID, #20 CAP WITH FOOD UNTIL PAIN RESOLVES Discharge Exam The patient was seen and examined this morning. Pt reports doing well today. Denies any issues with chest pain, palpitations, flutter, lightheadedness or dizziness. He has been ambulating to the bathroom without difficulty. He is hopeful for discharge early today as he has an ortho appointment for ankle external fixator. ROS: Constitutional: No fever, sweats or chills Eyes: No diplopia, no worsening or blurred vision ENT: normal hearing, no trouble swallowing Respiratory: No cough, sputum, dyspnea at rest or on exertion Cardiovascular: No chest pain, tightness or palpitations Abdomen: No pain, nausea, vomiting, diarrhea or constipation Musculoskeletal: No joint pain, calf pain, swelling - Left ankle external fixator stable Neurologic: No weakness, numbness/tingling, or balance problems Psychiatric: No anxiety or depression Skin: No rash or itch PE: General: awake, alert, no apparent distress Head: Normocephalic, atraumatic ENT: PERRL, EOMI, no pharyngeal exudate, mucous membranes moist Chest: Clear to auscultation, on RA, no adventitious breath sounds Cardiac: Regular rate and rhythm, no murmur, no JVD, normal peripheral pulses, good capillary refill Abdominal: NABS x 4 quadrants, soft, nontender to palpation, no rebound, guarding or tenderness Extremities: Normal inspection, no peripheral edema or erythema, calfs nontender to palpation Psych: Normal mood and affect Neuro: AAO x 3, strength intact bilaterally and related 5/5, no motor deficits, speech is clear, no peripheral sensory deficits Hospital Course 52 yo man with PMHx of diabetes mellitus type 2 insulin requiring, chronic kidney disease with baseline creatinine around 2, coronary artery disease status post multiple PCI and multiple stents, hypothyroidism, dyslipidemia and recent major construction surgery for left foot with external fixator. Presented to the hospital with an episode of syncope where his pulse was reported as undetected for 2 minutes. Syncope CAD with hx 3 stents in the prox LCx into the 2nd OM. HTN - on tele - His pulse was undetected for 2 minute, but unlikely reliable information as the pt regained full consciousness immediately after without any resuscitation, also pulse was being checked on the radial not carotid. His witnessed the entire event and a provider at outpatient clinic noted his BP immediately prior to the event was 80/60. - He does not have tachycardia or hypoxia, but tachycardia could be masked by large dose carvedilol. - We will lower his blood pressure medications, stopped chlorthalidone, decreased carvedilol from 25 mg twice daily to 12.5 mg twice daily and will continue this lowered dose as an outpatient - pt instructed to check BP once daily and show results to PCP. - 2D echo completed: * -- Conclusions -- * Left ventricular systolic function is normal. * No regional wall motion abnormalities noted. * Ejection Fraction = 55-60%. * There is borderline concentric left ventricular hypertrophy. * No significant valvular pathology. - Cardiology consulted- Dr Bentley - no further recs at this time other than monitor on tele - no acute events- discussed with their service and are ok with dc with follow up with Dr. Pringle in 4 weeks. - Orthostatic BPs were negative. - VQ scan negative for PE. Burning sensation in the urine - no UTI - resolved - UA negative, no UCx to follow Chronic kidney disease stage III, - Cr. 1.8 upon admission and improved to 1.33 upon discharge. Left lower extremity reconstruction with external fixator - Patient is out of the reconstruction surgery for 5 weeks, will check his d- dimer which should be back to normal - a VQ scan was completed as his creatinine was 1.8 and was found to be negative. DM II Continue patient insulin and add sliding scale insulin Hypothyroidism - Continue Synthroid, TSH is within normal limits Follow-up potassium and magnesium levels Ordered urine analysis with urine culture, ordered blood culture giving his low blood pressure in the presence of external fixator that might be a source of infection. DVT ppx: heparin subq CODE: FULL Disposition: From home, discharged today. Total Time Spent: Greater than 30 minutes This includes examination of the patient, discharge planning, medication reconciliation, and communication with other providers. Discharge Instructions Please refer to the electronic Patient Visit Report (Discharge Instructions) for additional information. Follow-Up Follow up with your Primary Care Provider within 1 week. Follow up with cardiology within 4 weeks. Additional Copies To Yunior Kelly M.D.
== END 2017-11-01 11:28 | disposition home or self-care (01) ==
LOC: EDBD 09:16 → C.EDB 09:17 → C.MED 12:52 → ENRESERV 13:49
PROVIDERS: ADMIT Internal Medicine; ATTEND Internal Medicine
DX: I95.1 Orthostatic hypotension (principal); I25.10 Atherosclerotic heart disease of native coronary artery without angina pectoris; E11.22 Type 2 diabetes mellitus with diabetic chronic kidney disease; M10.9 Gout, unspecified; E78.5 Hyperlipidemia, unspecified; E03.9 Hypothyroidism, unspecified; N18.9 Chronic kidney disease, unspecified; Z79.82 Long term (current) use of aspirin; Z79.4 Long term (current) use of insulin; Z79.899 Other long term (current) drug therapy; Z79.02 Long term (current) use of antithrombotics/antiplatelets; Z98.890 Other specified postprocedural states

== ENCOUNTER → 2017-11-07 | Outpatient (CLI) | payer OTHER ==
[~2017-11-07] MED LIST changes: -CARV25TA2 PO; +CRG125 PO; +GLGKIT SC; -INDO-24 PO; -INSDGI SC; +INSU100I23 SC; -LEVO100T7 PO; +LEVO112T4 PO; +NVLG SC; -NVLGI SC
[2017-11-07 16:47] LABS: POTASSIUM 3.6 mmol/L (3.5-5.1)
[2017-11-08 06:07] LABS: HEMOGLOBIN A1C 6.4 % (4.5-5.6)
== END | disposition home or self-care (01) ==
LOC: C.LABBFT 14:54
PROVIDERS: ATTEND Nurse Practitioner Adult Health
DX: E03.9 Hypothyroidism, unspecified (principal); E11.29 Type 2 diabetes mellitus with other diabetic kidney complication; Z79.4 Long term (current) use of insulin; E78.5 Hyperlipidemia, unspecified; Z12.5 Encounter for screening for malignant neoplasm of prostate; R55 Syncope and collapse

== ENCOUNTER 2017-11-17 13:01 | Emergency (ER) | payer OTHER ==
[~2017-11-17] VITALS: Ht 182.9 cm; Wt 109.0 kg
[2017-11-17 13:07] VITALS: TEMP 36.5
[2017-11-17 13:15] VITALS: O2SAT 95
[2017-11-17] MEDS ORDERED: ONDANSETRON INJ 2 MG/ML 2 ML VIAL IV STA (13:19)
[2017-11-17] MEDS ORDERED: SODIUM CHLORIDE 0.9% 1000ML 2,000 ML IV STA (13:19)
[2017-11-17 13:22] VITALS: Ht 182.9 cm; Wt 109.0 kg
[2017-11-17 13:31] LABS: BASO % 0.4 %; BASO ABS # 0.03 K/uL (0-0.2); EOS % 0.8 %; EOS ABS # 0.06 K/uL (0-0.5); HEMOGLOBIN 10.9 g/dL (14.0-18.0); IG# 0.02 K/uL (0.00-0.02); LYMPH % 16.6 %; LYMPH ABS # 1.22 K/uL (1.2-3.4); MEAN CELL VOLUME 81.5 fL (80-100); MEAN CORPUSCULAR HEMOGLOBIN 26.1 pg (25-34); MEAN CORPUSCULAR HGB CONC 32.1 g/dl (32-36); MEAN PLATELET VOLUME 9.1 fL (7.4-10.4); MONO ABS # 0.51 K/uL (0.11-0.59); NEUT % 74.9 %; NEUT ABS # 5.49 K/uL (1.4-6.5); PLATELET COUNT 277 K/uL (130-400); RED CELL DISTRIBUTION WIDTH CV 15.8 % (11.5-14.5); RED CELL DISTRIBUTION WIDTH SD 46.4 fL (36.4-46.3); WHITE BLOOD COUNT 7.33 K/uL (4.8-10.8)
[2017-11-17 13:40] LABS: PTT PATIENT 26.1 SECONDS (21.0-31.0)
--- NOTE | 2017-11-17 13:43 | DIAGNOSTIC IMAGING REPORT ---
CHEST ONE VIEW PORTABLE HISTORY: EVALUATE WEAKNESS COMPARISON: Chest 10/31/2017. FINDINGS: The lungs are clear. Cardiac silhouette is normal in size. No pleural effusions. No pneumothorax. IMPRESSION: No acute process. Electronically signed by: Leeroy Walters M.D. 11/17/2017 1:42 PM Dictated Date/Time: 11/17/2017 1:39 PM
[2017-11-17 13:59] LABS: ALBUMIN 3.5 gm/dl (3.4-5.0); ALKALINE PHOSPHATASE 125 U/L (45-117); ALT/SGPT 16 U/L (12-78); AST/SGOT 13 U/L (15-37); BLOOD UREA NITROGEN 18 mg/dl (7-18); CALCIUM 9.5 mg/dl (8.5-10.1); CARBON DIOXIDE 26 mmol/L (21-32); CREATININE 2.31 mg/dl (0.60-1.40); GLUCOSE 169 mg/dl (70-99); POTASSIUM 4.7 mmol/L (3.5-5.1); SODIUM 138 mmol/L (136-145); TOTAL PROTEIN 7.6 gm/dl (6.4-8.2)
[2017-11-17] MEDS ORDERED: SULF-302 PO (13:59)
--- NOTE | 2017-11-17 15:06 | DIAGNOSTIC IMAGING REPORT ---
(CHEST FOR PE) ANGIO WITH CT DOSE: 541.70 mGycm HISTORY: 52 years-old Male acute hypotension with dizziness TECHNIQUE: Multiple CTA images of the chest were obtained after the intravenous administration of 79 ml Optiray 320. Coronal and sagittal MIPS were obtained from the axial data set and were submitted for review. A dose lowering technique was utilized adhering to the principles of ALARA. COMPARISON: Chest radiograph 11/17/2017, VQ scan 10/31/2017 FINDINGS: CTA: Heart is normal in size. Coronary arterial calcifications are noted. No pericardial effusion. The thoracic aorta is normal in both course and caliber without aneurysm or dissection. The imaged great vessels appear patent. Pulmonary arterial tree is opacified to the level of the segmental branches and demonstrates no focal filling defects to suggest pulmonary thromboembolic disease. CT CHEST: Homogeneous thyroid. No pathologic mediastinal adenopathy. There are 4 total bilateral ovoid circumscribed soft tissue attenuating lesions within the subpleural posterior intercostal spaces at the T8-T9 and T9-T10 levels measuring up to 1.8 x 1.1 cm on the right and 1.3 x 0.6 cm on the left. No pneumothorax or pleural effusion. Bibasilar subsegmental groundglass opacities suggest atelectasis. There is mild bilateral bronchial wall thickening. No lobar airspace consolidation to suggest pneumonia. There is a 5 mm soft tissue attenuating lesion about the dependent aspect of the bronchus intermedius, image 163 series 4. Airways are otherwise patent. Cholelithiasis. Splenomegaly, 17 cm. No acute process of the imaged upper abdomen. Soft tissues are within normal limits. The bones appear intact. IMPRESSION: 1. No aortic pathology or evidence of pulmonary thromboembolic disease. 2. Bilateral ovoid circumscribed soft tissue attenuating lesions within the subpleural posterior intercostal spaces at the T8-T9 and T9-T10 levels, four total measuring up to 1.8 cm on the right suggest nerve sheath tumors with adenopathy or extra medullary hematopoiesis felt to be less likely. 3. 5 mm soft tissue attenuating lesion of the bronchus intermedius of unknown etiology. Differential considerations would include endobronchial hamartoma, fibroma, adenoid cystic carcinoma among other etiologies. This could be further evaluated with bronchoscopy. 4. Coronary arterial disease. The above report was generated using voice recognition software. It may contain grammatical, syntax or spelling errors. Electronically signed by: Deangelo Giang M.D. 11/17/2017 3:05 PM Dictated Date/Time: 11/17/2017 2:48 PM
[2017-11-17 16:45] VITALS: BP 142/76; PULSE 60; O2SAT 98
--- NOTE | 2017-11-17 17:55 | EMERGENCY ROOM VISIT NOTE ---
History Report prepared by Rodríguez: [place] Alexis Under the Supervision of: Dr. Familia Paiz D.O. First contact with patient: 13:11 Chief Complaint: REFERRED BY DOCTOR Stated Complaint: LOW BLOOD PRESSURE, DIZZY History of Present Illness The patient is a 52 year old male who presents to the Emergency Room with complaints of sudden dizziness starting today. The patient states that he had this happen before a few weeks ago. He states that he took his blood pressure medications without eating and his blood pressure went low. He reports that this did not happen today. He notes that since then he has had one of his blood pressure medications cut in half. The patient states that he was leaving endocrinology when he felt dizzy and vomited when he got up from the chair. He reports that they took his blood pressure and sent him to the ED. The patient states that his dizziness is better when lying down and worse when standing. The patient denies chest pain, shortness of breath, diarrhea, cough, runny nose , nausea, urinary symptoms, and doing anything differently today. The patient notes that he had a broken ankle and foot that required surgery. He states that it has been immobilized since then on September 23. Source of History: patient Onset: today Position: other (global) Quality: other (dizziness) Timing: other (sudden) Modifying Factors (Worsening): other (standing) Modifying Factors (Relieving): other (lying down) Associated Symptoms: + vomiting, No cough, No chest pain, No SOB, No nausea , No diarrhea, No urinary symptoms Note: The patient denies runny nose. Review of Systems See HPI for pertinent positives & negatives. A total of 10 systems reviewed and were otherwise negative. Past Medical & Surgical Medical Problems: (1) CAD (coronary artery disease) (2) Charcot foot due to diabetes mellitus (3) Diab W Ophthal Manifest, Type Ii Or Unspec Type, Uncntrld (4) Diabetic peripheral neuropathy associated with type 2 diabetes mellitus (5) Foot deformity (6) Gout (7) Heart disease (8) History of diabetic ulcer of foot (9) Hx of renal calculi (10) Hyperlipidemia Nec/Nos (11) Hypertension Nos (12) Kidney stone (13) Loss of sensation Surgical Problems: (1) Hx of foot surgery Family History Cancer Diabetes mellitus Gallbladder disease Heart disease Hypertension Lung disease Social History Smoking Status: Never Smoker Alcohol Use: none Marital Status: Housing Status: lives with family Occupation Status: employed Current/Historical Medications Scheduled Allopurinol (Zyloprim), 300 MG PO DAILY Aspirin (Aspirin Ec), 81 MG PO DAILY Carvedilol (Carvedilol), 12.5 MG PO BID Chlorthalidone (Hygroton), 25 MG PO DAILY Clopidogrel (Plavix), 75 MG PO DAILY Ergocalciferol (Vitamin D 86290 Unit), 50,000 UNITS PO MONTHLY Fenofibrate (Tricor), 48 MG PO DAILY Insulin Aspart (Novolog), 1 DOSE SC ACHS Insulin Glargine (Basaglar Kwikpen), 50 UNITS SC QPM Isosorbide Mononitrate Ext Rel (Imdur Ext Rel), 30 MG PO DAILY Levothyroxine Sodium (Levothyroxine Sodium), 112 MCG PO DAILY Nitroglycerin (Nitrostat), 0.4 MG UT PRN Rosuvastatin Calcium (Crestor), 40 MG PO HS Sulfamethoxazole-Trimethoprim (Smz-Tmp Ds), 1 TAB PO DAILY Scheduled PRN Glucagon (Glucagon Emergency Kit), 1 DOSE SC UD PRN for Hypoglycemia Treatment Allergies Coded Allergies: Lisinopril (Unverified Adverse Reaction, Unknown, cough, 11/17/17) Physical Exam Vital Signs Date Time Temp Pulse Resp B/P (MAP) Pulse Ox O2 Delivery O2 Flow Rate FiO2 11/17/17 16:45 60 20 142/76 98 11/17/17 16:00 60 20 114/68 98 Room Air 11/17/17 14:31 121/72 11/17/17 14:20 55 14 99 Room Air 11/17/17 14:01 112/68 11/17/17 13:50 50 18 96 Room Air 11/17/17 13:38 89/60 11/17/17 13:37 99/56 11/17/17 13:37 50 100/54 48 99/56 51 89/60 11/17/17 13:36 100/54 11/17/17 13:31 88/48 11/17/17 13:30 94/53 11/17/17 13:20 52 15 95 Room Air 11/17/17 13:18 50 11/17/17 13:17 53 17 94/58 94 Room Air 11/17/17 13:15 95 Room Air 11/17/17 13:15 95 Room Air 11/17/17 13:07 36.5 50 18 62/48 97 Room Air Physical Exam GENERAL: Sitting up in bed, disheveled, non-toxic EYE EXAM: normal conjunctiva. OROPHARYNX: no exudate, no erythema, lips, buccal mucosa, and tongue normal and mucous membranes are moist NECK: supple, no nuchal rigidity, no adenopathy, non-tender LUNGS: Clear to auscultation. Normal chest wall mechanics HEART: no murmurs, S1 normal and S2 normal ABDOMEN: abdomen soft, non-tender, normo-active bowel sounds, no masses, no rebound or guarding. BACK: Back is symmetrical on inspection and there is no deformity, no midline tenderness, no CVA tenderness. SKIN: no rashes and no bruising UPPER EXTREMITIES: upper extremities are grossly normal. LOWER EXTREMITIES: No pitting edema. Left lower extremity in cast NEURO EXAM: Normal sensorium, cranial nerves II-XII grossly intact, normal speech, no weakness of arms. No drift. Finger to nose intact. Medical Decision & Procedures ER Provider Diagnostic Interpretation: Radiology results as stated below per my review and the radiologist's interpretation: CHEST ONE VIEW PORTABLE HISTORY: EVALUATE WEAKNESS COMPARISON: Chest 10/31/2017. FINDINGS: The lungs are clear. Cardiac silhouette is normal in size. No pleural effusions. No pneumothorax. IMPRESSION: No acute process. Electronically signed by: Leeroy Walters M.D. 11/17/2017 1:42 PM Dictated Date/Time: 11/17/2017 1:39 PM (CHEST FOR PE) ANGIO WITH CT DOSE: 541.70 mGycm HISTORY: 52 years-old Male acute hypotension with dizziness TECHNIQUE: Multiple CTA images of the chest were obtained after the intravenous administration of 79 ml Optiray 320. Coronal and sagittal MIPS were obtained from the axial data set and were submitted for review. A dose lowering technique was utilized adhering to the principles of ALARA. COMPARISON: Chest radiograph 11/17/2017, VQ scan 10/31/2017 FINDINGS: CTA: Heart is normal in size. Coronary arterial calcifications are noted. No pericardial effusion. The thoracic aorta is normal in both course and caliber without aneurysm or dissection. The imaged great vessels appear patent. Pulmonary arterial tree is opacified to the level of the segmental branches and demonstrates no focal filling defects to suggest pulmonary thromboembolic disease. CT CHEST: Homogeneous thyroid. No pathologic mediastinal adenopathy. There are 4 total bilateral ovoid circumscribed soft tissue attenuating lesions within the subpleural posterior intercostal spaces at the T8-T9 and T9-T10 levels measuring up to 1.8 x 1.1 cm on the right and 1.3 x 0.6 cm on the left. No pneumothorax or pleural effusion. Bibasilar subsegmental groundglass opacities suggest atelectasis. There is mild bilateral bronchial wall thickening. No lobar airspace consolidation to suggest pneumonia. There is a 5 mm soft tissue attenuating lesion about the dependent aspect of the bronchus intermedius, image 163 series 4. Airways are otherwise patent. Cholelithiasis. Splenomegaly, 17 cm. No acute process of the imaged upper abdomen. Soft tissues are within normal limits. The bones appear intact. IMPRESSION: 1. No aortic pathology or evidence of pulmonary thromboembolic disease. 2. Bilateral ovoid circumscribed soft tissue attenuating lesions within the subpleural posterior intercostal spaces at the T8-T9 and T9-T10 levels, four total measuring up to 1.8 cm on the right suggest nerve sheath tumors with adenopathy or extra medullary hematopoiesis felt to be less likely. 3. 5 mm soft tissue attenuating lesion of the bronchus intermedius of unknown etiology. Differential considerations would include endobronchial hamartoma, fibroma, adenoid cystic carcinoma among other etiologies. This could be further evaluated with bronchoscopy. 4. Coronary arterial disease. The above report was generated using voice recognition software. It may contain grammatical, syntax or spelling errors. Electronically signed by: Deangelo Giang M.D. 11/17/2017 3:05 PM Dictated Date/Time: 11/17/2017 2:48 PM Laboratory Results 11/17/17 13:18 Red Blood Count 4.17, Mean Corpuscular Volume 81.5, Mean Corpuscular Hemoglobin 26.1, Mean Corpuscular Hemoglobin Concent 32.1, Mean Platelet Volume 9.1, Neutrophils (%) (Auto) 74.9, Lymphocytes (%) (Auto) 16.6, Monocytes (%) (Auto) 7.0, Eosinophils (%) (Auto) 0.8, Basophils (%) (Auto) 0.4, Neutrophils # (Auto) 5.49, Lymphocytes # (Auto) 1.22, Monocytes # (Auto) 0.51, Eosinophils # (Auto) 0.06, Basophils # (Auto) 0.03 11/17/17 13:18 Test 11/17/17 13:18 11/17/17 13:26 11/17/17 13:34 11/17/17 15:27 White Blood Count 7.33 K/uL (4.8-10.8) Red Blood Count 4.17 M/uL (4.7-6.1) Hemoglobin 10.9 g/dL (14.0-18.0) Hematocrit 34.0 % (42-52) Mean Corpuscular Volume 81.5 fL (80-100) Mean Corpuscular Hemoglobin 26.1 pg (25-34) Mean Corpuscular Hemoglobin Concent 32.1 g/dl (32-36) Platelet Count 277 K/uL (130-400) Mean Platelet Volume 9.1 fL (7.4-10.4) Neutrophils (%) (Auto) 74.9 % Lymphocytes (%) (Auto) 16.6 % Monocytes (%) (Auto) 7.0 % Eosinophils (%) (Auto) 0.8 % Basophils (%) (Auto) 0.4 % Neutrophils # (Auto) 5.49 K/uL (1.4-6.5) Lymphocytes # (Auto) 1.22 K/uL (1.2-3.4) Monocytes # (Auto) 0.51 K/uL (0.11-0.59) Eosinophils # (Auto) 0.06 K/uL (0-0.5) Basophils # (Auto) 0.03 K/uL (0-0.2) RDW Standard Deviation 46.4 fL (36.4-46.3) RDW Coefficient of Variation 15.8 % (11.5-14.5) Immature Granulocyte % (Auto) 0.3 % Immature Granulocyte # (Auto) 0.02 K/uL (0.00-0.02) Prothrombin Time 11.0 SECONDS (9.0-12.0) Prothromb Time International Ratio 1.0 (0.9-1.1) Activated Partial Thromboplast Time 26.1 SECONDS (21.0-31.0) Partial Thromboplastin Ratio 1.0 Anion Gap 5.0 mmol/L (3-11) Est Creatinine Clear Calc Drug Dose 48.8 ml/min Estimated GFR () 36.8 Estimated GFR (Non- 31.8 BUN/Creatinine Ratio 7.9 (10-20) Calcium Level 9.5 mg/dl (8.5-10.1) Total Bilirubin 0.5 mg/dl (0.2-1) Direct Bilirubin 0.2 mg/dl (0-0.2) Aspartate Amino Transf (AST/SGOT) 13 U/L (15-37) Alanine Aminotransferase (ALT/SGPT) 16 U/L (12-78) Alkaline Phosphatase 125 U/L (45-117) Troponin I < 0.015 ng/ml (0-0.045) Total Protein 7.6 gm/dl (6.4-8.2) Albumin 3.5 gm/dl (3.4-5.0) Thyroid Stimulating Hormone (TSH) 2.480 uIu/ml (0.300-4.500) Bedside Lactic Acid Venous 1.08 mmol/L (0.90-1.70) Bedside Glucose 178 mg/dl (70-99) Urine Color YELLOW Urine Appearance CLEAR (CLEAR) Urine pH 8.0 (4.5-7.5) Urine Specific [place] 1.031 (1.000-1.030) Urine Protein NEG (NEG) Urine Glucose (UA) NEG (NEG) Urine Ketones NEG (NEG) Urine Occult Blood NEG (NEG) Urine Nitrite NEG (NEG) Urine Bilirubin NEG (NEG) Urine Urobilinogen NEG (NEG) Urine Leukocyte Esterase NEG (NEG) Urine WBC (Auto) 1-5 /hpf (0-5) Urine RBC (Auto) 0-4 /hpf (0-4) Urine Hyaline Casts (Auto) 1-5 /lpf (0-5) Urine Epithelial Cells (Auto) 10-20 /lpf (0-5) Urine Bacteria (Auto) NEG (NEG) Laboratory results per my review. Medications Administered Medications (Trade) Dose Ordered Sig/Douglas Route Start Time Stop Time Status Last Admin Dose Admin Ondansetron HCl (Zofran Inj) 4 mg NOW STAT IV 11/17/17 13:19 11/17/17 13:21 DC 11/17/17 13:27 4 MG Sodium Chloride 2,000 ml @ 999 mls/hr Q2H1M STAT IV 11/17/17 13:19 11/17/17 15:19 DC 11/17/17 13:27 999 MLS/HR ECG Per My Interpretation Indication: vomiting Rate (beats per minute): 50 Rhythm: sinus bradycardia Findings: other (normal axis, no PVCs) ED Course ED COURSE: Vital signs were reviewed and showed are normal. The patients medical record was reviewed The above diagnostic studies were performed and reviewed. ED treatments and interventions as stated above. 1312: The patient was evaluated in room B10. A complete history and physical examination was performed. 1319: Ordered NSS 2000 ml @ 999 mls/hr IV, Zofran Inj 4 mg IV. 1519: I reevaluated the patient and he is going to provide a urine at this time. 1532: I discussed the patient's case with Dr. Casillas -Thoracic Surgeon. 1602: Upon reevaluation, the patient is resting comfortably.I discussed my findings with the patient and he understands and agrees with the treatment plan. Based on the patients age, coexisting illnesses, exam and lab findings the decision to treat as an outpatient was made. The patient remained stable while under my care. The patient appeared well at the time of discharge. Medical Decision Differenital diagnosis includes etiologies such as benign positional vertigo, dehydration, hypovolemia, anemia, tumor, infection, hypoglycemia, electrolyte abnormalities, cardiac sources, intracerebral event, toxicologic, neurologic, as well as others were entertained. Patient is a 52-year-old male who presents the ER dizziness and lightheadedness that started when he got up from sitting. His blood pressure was checked and was found to be hypotensive. He was sent to the ER. On evaluation initially systolics were in the 80s. He has no other complaints. He does have a left lower extremity in a cast. No chest pain or shortness of breath. No upper respiratory symptoms or urinary symptoms. CBC along with BMP shows a creatinine 2.3 slightly up from a baseline of 2. LFTs, bilirubin, troponin and TSH were unremarkable. Lactate was normal. UA without infection. CT of the chest was performed due to mobilization of hypertension which showed questionable nerve sheath tumors. This was discussed with patient and thoracic. Patient will follow up with them as an outpatient. EKG was unremarkable. After 2 L systolics were in the 120s. Patient was updated at bedside and discharged to follow-up with PCP as an outpatient. Discussed with Pt concerning signs and symptoms to watch out for. Pt was instructed to follow up with their PCP and discussed with the patient their option to return to the ED at anytime for persistent or worsening symptoms. The appropriate anticipatory guidance and out-patient management, including indications for return to the emergency department, were explained at length to the patient and understood. Medication Reconcilliation Current Medication List: was personally reviewed by me Blood Pressure Screening Patient's blood pressure: Normal blood pressure Blood pressure disposition: Did not require urgent referral Consults Time Called: 1528 Consulting Physician: Dr. Casillas -Thoracic Surgeon Returned Call: [phone] I discussed the patient's case with Dr. Casillas -Thoracic Surgeon. Impression Primary Impression: Orthostatic hypotension Additional Impression: Pulmonary nodules Scribe Attestation The scribe's documentation has been prepared under my direction and personally reviewed by me in its entirety. I confirm that the note above accurately reflects all work, treatment, procedures, and medical decision making performed by me. Departure Information Dispostion Home / Self-Care Referrals Yunior Kelly M.D. (PCP) Forms HOME CARE DOCUMENTATION FORM, IMPORTANT VISIT INFORMATION, WORK / SCHOOL INSTRUCTIONS Patient Instructions My [facility] Additional Instructions Please follow up with your primary care doctor with in the next 24 hours. Any worsening of your symptoms, please return to the ED immediately. This includes any fevers greater than 100.4, worsening pain, chest pain, shortness breath, persistent nausea, vomiting, unable to eat or drink, or any other concerning signs or symptoms from your standpoint. Please discuss with your primary care doctor in regards to adjusting your medications to prevent any additional dizziness or lightheadedness. Please follow-up with thoracic surgery as listed below within the next 1-2 weeks. Problem Qualifiers
== END 2017-11-17 16:48 | disposition home or self-care (01) ==
LOC: C.EDB 13:03
DX: I95.1 Orthostatic hypotension (principal); R91.8 Other nonspecific abnormal finding of lung field; I25.10 Atherosclerotic heart disease of native coronary artery without angina pectoris; E11.618 Type 2 diabetes mellitus with other diabetic arthropathy; E11.39 Type 2 diabetes mellitus with other diabetic ophthalmic complication; E11.43 Type 2 diabetes mellitus with diabetic autonomic (poly)neuropathy; I10 Essential (primary) hypertension; E78.5 Hyperlipidemia, unspecified; Z82.49 Family history of ischemic heart disease and other diseases of the circulatory system; Z79.82 Long term (current) use of aspirin; Z79.4 Long term (current) use of insulin; Z79.899 Other long term (current) drug therapy; Z88.8 Allergy status to other drugs, medicaments and biological substances

== ENCOUNTER → 2018-01-31 | Outpatient (CLI) | payer OTHER ==
[~2018-01-31] MED LIST changes: +SULF-302 PO
[2018-01-31 09:37] LABS: HEMATOCRIT 39.2 % (42-52); HEMOGLOBIN 12.7 g/dL (14.0-18.0); MEAN CELL VOLUME 82.4 fL (80-100); MEAN CORPUSCULAR HEMOGLOBIN 26.7 pg (25-34); MEAN CORPUSCULAR HGB CONC 32.4 g/dl (32-36); MEAN PLATELET VOLUME 10.3 fL (7.4-10.4); PLATELET COUNT 201 K/uL (130-400); RED CELL DISTRIBUTION WIDTH CV 16.1 % (11.5-14.5); RED CELL DISTRIBUTION WIDTH SD 48.2 fL (36.4-46.3); WHITE BLOOD COUNT 6.34 K/uL (4.8-10.8)
[2018-01-31 10:06] LABS: ALBUMIN 3.9 gm/dl (3.4-5.0); BLOOD UREA NITROGEN 21 mg/dl (7-18); CALCIUM 9.2 mg/dl (8.5-10.1); CARBON DIOXIDE 29 mmol/L (21-32); GLUCOSE 246 mg/dl (70-99); POTASSIUM 3.6 mmol/L (3.5-5.1); SODIUM 135 mmol/L (136-145); URIC ACID 8.2 mg/dl (2.6-7.2)
== END | disposition home or self-care (01) ==
LOC: C.LAB1850 08:35
PROVIDERS: ATTEND Internal Medicine Nephrology
DX: I12.9 Hypertensive chronic kidney disease with stage 1 through stage 4 chronic kidney disease, or unspecified chronic kidney disease (principal); N18.3 Chronic kidney disease, stage 3 (moderate); R80.9 Proteinuria, unspecified; E55.9 Vitamin D deficiency, unspecified; R31.29 Other microscopic hematuria; D64.9 Anemia, unspecified; N25.81 Secondary hyperparathyroidism of renal origin

== ENCOUNTER 2022-03-14 11:05 | Inpatient (IN) ==
[2022-03-14] MEDS ORDERED: SODIUM CHLORIDE 0.9% 1000ML 1,000 ML IV ONE (11:33)
--- NOTE | 2022-03-14 11:38 | Emergency Department Note ---
History of Present Illness General Chief complaint: Hyperglycemia Stated complaint: LEFT FOOT PAIN, NUEROPATHY, HIGH BLOOD SUGAR Time Seen by Provider: 03/14/22 11:27 History of Present Illness Provider complaint: Left foot pain Onset (ago): day(s) 1 Location: lower extremity and left Radiation: non-radiation Severity: severe Maximum Pain Intensity: 10 Current Pain Intensity: 9 Quality: + sharp Relieved By: + immobilization Exacerbated By: + movement Associated symptoms: + nausea/vomiting; no chest pain, no cough, no fever/chills, no headaches, no seizure or no shortness of breath 56-year-old male presents emergency department for left foot pain. Patient states he is not supposed to walk on his feet because he has a history of a chronic wound on his foot and a history of Charcot foot secondary to diabetes. He states despite this, yesterday he was up and walking with a cane. He reports he is having increasing left foot pain over the lateral area of his foot. Patient reports he has a chronic wound on the left foot which is also irritating him. Patient reports that his sugars have been very high. He reports vomiting earlier today. No chest pain or difficulty breathing. No new cough. No hematuria dysuria melena or hematochezia. Home Medications Medication Instructions Recorded Confirmed Type Accu-Chek Guide test strips (blood #400 ea 08/22/19 03/01/22 Rx sugar diagnostic) indomethacin 50 mg capsule 50 mg PO TID PRN gout #15 caps 11/11/20 03/14/22 Rx sildenafil 50 mg tablet See Rx Instructions PO DAILY PRN 11/11/20 03/14/22 Rx sexual activity #30 tabs blood-glucose meter,continuous #1 ea 04/06/21 03/01/22 Rx (Dexcom G6 Deputy Clerk misc) rosuvastatin 40 mg tablet 40 mg PO QAM #90 tabs 04/27/21 03/14/22 Rx fenofibrate nanocrystallized 48 mg 48 mg PO QAM #90 tabs 05/22/21 03/14/22 Rx tablet blood-glucose sensor (Dexcom G6 #3 ea 07/17/21 03/01/22 Rx Sensor device) pen needle, diabetic 32 gauge x #100 ea 09/07/21 03/01/22 Rx 5/32" (BD Ultra-Fine Francie Pen Needle) Dexcom G6 Transmitter #1 ea 10/02/21 03/01/22 Rx (blood-glucose transmitter) levothyroxine 112 mcg tablet 112 mcg PO QAM #30 tabs 10/21/21 03/14/22 Rx (Euthyrox) Novolog U-100 Insulin aspart 100 120 unit (1.2 mL) .Route DAILY 30 11/19/21 03/14/22 Rx unit/mL subcutaneous solution days #40 mL (insulin aspart U-100) losartan 25 mg tablet 25 mg PO DAILY #30 tabs 12/02/21 03/14/22 Rx nitroglycerin 0.4 mg sublingual 0.4 mg sublingual Q5M PRN chest 12/03/21 03/14/22 Rx tablet pain #25 tabs calcitriol 0.5 mcg capsule 0.5 mcg PO DAILY 12/21/21 03/14/22 History clopidogrel 75 mg tablet 75 mg PO QAM #90 tabs 12/28/21 03/14/22 Rx insulin glargine 100 unit/mL (3 75 unit subcut QAM 01/07/22 03/14/22 History mL) subcutaneous pen (Basaglar KwikPen U-100 Insulin) insulin syringe,safetyneedle 1 mL 01/07/22 03/01/22 History 31 gauge x 15/64" (Assure ID Insulin Safety) allopurinol 300 mg tablet 300 mg PO DAILY #90 tabs 02/02/22 03/14/22 Rx carvedilol 12.5 mg tablet 12.5 mg PO DAILY #90 tabs 02/02/22 03/14/22 Rx doxycycline hyclate 100 mg tablet 100 mg PO bid 02/15/22 03/14/22 History aspirin 81 mg tablet,delayed 81 mg PO QAM 03/14/22 03/14/22 History release Allergies Allergy/AdvReac Type Severity Reaction Status Date / Time lisinopril AdvReac Unknown cough Verified 03/14/22 16:38 Past Med/Surg History Medical History Bulging disc CAD (coronary artery disease) Follows with Dr. Pringle Cardiac murmur Cataract Chronic kidney disease (CKD) follows with Dr. Lewis Diabetes mellitus with diabetic polyneuropathy IDDM type 2 Dyslipidemia Gout History of colon polyps History of kidney stones History of myocardial infarction 2010 Hypertension Hypothyroidism Obesity (BMI 30.0-34.9) Osteoarthritis Proliferative diabetic retinopathy Surgical History H/O heart artery stent x7 History of ankle surgery Left - January 2017 History of bursectomy Left elbow History of cardiac cath 2017 - [facility] - 3 stents 2010 - [facility] - 4 stents History of colonoscopy History of cystoscopy with stone extraction History of foot surgery Left - September 2017 S/P excisional debridement RLE Family History Father Diabetes Coronary heart disease Unknown Heart disease History of nephrolithiasis Hypertension Mother No problems noted. Other Nephrolithiasis No family history of adverse response to anesthesia Denies family history of Ovarian cancer Prostate cancer Chronic kidney disease (CKD) Breast cancer Colorectal cancer Social History Smoking Status: Never smoker Second Hand Exposure: Yes (hx); Do You Dip or Chew Tobacco: No; Hx Alcohol Use: No Hx Substance Use: No Preferred Language: Pashto Communication Ability: Effective Visual Impairment: Limited Hearing Ability: Hard of Hearing Coding Technician Required: No Beliefs That Will Affect Care: None marital status: Current Living Situation: Family current occupational status: 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 Other Information That Helps Us Care for You: No Feels Safe at Home: Yes Safety Concerns: Feels Safe At This Time Childhood Exposure to Second-Hand Smoke: Yes caffeine: Yes during the past year weight has: remained stable Dental Care, Regularly: Yes Physical Activity Frequency: Does not Exercise Seatbelt Use: always Sunscreen Use: No Assistive Devices: Cane, Crutches and Glasses Review of Systems A total of 10 systems reviewed and were otherwise negative Physical Exam Vital Signs Vital Signs - 24 hr 03/14/22 11:06 03/14/22 11:49 03/14/22 12:04 Temperature 37.9 C H Temperature Source Oral Pulse Rate 85 83 83 Pulse Rate from SpO2 Sensor 83 Respiratory Rate 16 18 13 Blood Pressure 135/77 Blood Pressure Mean 96 Pulse Oximetry 100 98 98 Oxygen Delivery Method Room Air Sepsis Recent Fever Within 48 Hours Yes Sepsis New/Unexplained Change in Mental Status N/A Sepsis Action Taken by Nursing No Action Required 03/14/22 12:10 03/14/22 12:20 03/14/22 12:30 Temperature Temperature Source Pulse Rate 83 86 Pulse Rate from SpO2 Sensor 83 87 Respiratory Rate 14 7 L Blood Pressure 170/86 H Blood Pressure Mean 114 Pulse Oximetry 100 98 Oxygen Delivery Method Sepsis Recent Fever Within 48 Hours Sepsis New/Unexplained Change in Mental Status Sepsis Action Taken by Nursing 03/14/22 12:30 03/14/22 12:40 03/14/22 12:50 Temperature Temperature Source Pulse Rate 85 79 90 Pulse Rate from SpO2 Sensor 86 79 89 Respiratory Rate 21 21 21 Blood Pressure Blood Pressure Mean Pulse Oximetry 94 95 99 Oxygen Delivery Method Sepsis Recent Fever Within 48 Hours Sepsis New/Unexplained Change in Mental Status Sepsis Action Taken by Nursing 03/14/22 13:00 03/14/22 13:10 03/14/22 13:20 Temperature Temperature Source Pulse Rate 84 84 90 Pulse Rate from SpO2 Sensor 84 84 89 Respiratory Rate 14 20 Blood Pressure Blood Pressure Mean Pulse Oximetry 98 99 98 Oxygen Delivery Method Sepsis Recent Fever Within 48 Hours Sepsis New/Unexplained Change in Mental Status Sepsis Action Taken by Nursing 03/14/22 13:30 03/14/22 13:40 03/14/22 13:50 Temperature Temperature Source Pulse Rate 85 84 82 Pulse Rate from SpO2 Sensor 85 85 82 Respiratory Rate 20 19 17 Blood Pressure Blood Pressure Mean Pulse Oximetry 98 100 98 Oxygen Delivery Method Sepsis Recent Fever Within 48 Hours Sepsis New/Unexplained Change in Mental Status Sepsis Action Taken by Nursing 03/14/22 14:00 03/14/22 14:00 03/14/22 14:10 Temperature Temperature Source Pulse Rate 84 85 Pulse Rate from SpO2 Sensor 85 86 Respiratory Rate 18 20 Blood Pressure 149/77 H Blood Pressure Mean 101 Pulse Oximetry 98 97 Oxygen Delivery Method Sepsis Recent Fever Within 48 Hours Sepsis New/Unexplained Change in Mental Status Sepsis Action Taken by Nursing 03/14/22 14:20 03/14/22 14:30 03/14/22 14:30 Temperature Temperature Source Pulse Rate 83 83 Pulse Rate from SpO2 Sensor 82 83 Respiratory Rate 19 18 Blood Pressure 158/88 H Blood Pressure Mean 111 Pulse Oximetry 98 98 Oxygen Delivery Method Sepsis Recent Fever Within 48 Hours Sepsis New/Unexplained Change in Mental Status Sepsis Action Taken by Nursing 03/14/22 14:40 03/14/22 14:50 03/14/22 15:00 Temperature Temperature Source Pulse Rate 84 80 Pulse Rate from SpO2 Sensor 84 80 Respiratory Rate 18 18 Blood Pressure 159/84 H Blood Pressure Mean 109 Pulse Oximetry 97 98 Oxygen Delivery Method Sepsis Recent Fever Within 48 Hours Sepsis New/Unexplained Change in Mental Status Sepsis Action Taken by Nursing 03/14/22 15:00 03/14/22 15:10 03/14/22 15:20 Temperature Temperature Source Pulse Rate 87 81 78 Pulse Rate from SpO2 Sensor 87 81 79 Respiratory Rate 17 18 17 Blood Pressure Blood Pressure Mean Pulse Oximetry 98 99 100 Oxygen Delivery Method Sepsis Recent Fever Within 48 Hours Sepsis New/Unexplained Change in Mental Status Sepsis Action Taken by Nursing 03/14/22 15:30 03/14/22 15:30 Temperature Temperature Source Pulse Rate 77 Pulse Rate from SpO2 Sensor 77 Respiratory Rate 18 Blood Pressure 140/78 Blood Pressure Mean 98 Pulse Oximetry 98 Oxygen Delivery Method Sepsis Recent Fever Within 48 Hours Sepsis New/Unexplained Change in Mental Status Sepsis Action Taken by Nursing Physical Exam GENERAL: He is oriented to person, place, and time. He appears well-developed and well-nourished. He does not appear distressed. HENT: Exam performed. - Head: Normocephalic and atraumatic. - Right Ear: External ear normal. No mastoid tenderness. - Left Ear: External ear normal. No mastoid tenderness. - Mouth/Throat: The oropharynx is clear and moist. No trismus in the jaw. No dental abscesses or uvula swelling. No oropharyngeal exudate or tonsillar abscesses. EYES: Conjunctivae and EOM are normal. Pupils are equal, round, and reactive to light. Right eye exhibits no discharge. Left eye exhibits no discharge. No scleral icterus. NECK: Normal range of motion. Neck supple. No JVD present. No spinous process tenderness present. No carotid bruit present. No rigidity. No tracheal deviation and normal range of motion present. No Brudzinski's sign and no Kernig's sign noted. CV: Normal rate, regular rhythm, normal heart sounds and intact distal pulses. There is no peripheral edema. Palpable radial pulses bue. PULM/CHEST: Effort normal and breath sounds normal. No respiratory distress. No stridor. He has no wheezes. He has no rales. - Chest Wall: He exhibits no tenderness. ABD: The abdomen is soft. Bowel sounds are normal. He has no distension. No mass is present. There is no tenderness. There is no rebound, no guarding, no Seals's sign and no tenderness at McBurney's point. Rovsig negative. MUSC/SKEL: Left lower extremity: Palpable DP and PT pulse. There are multiple scars over his left lower extremity and a chronic deformity of his left lower foot. There is an open wound over the lateral aspect of his left lower foot and ankle. It appears to be well-healing with no surrounding erythema minimal discharge and no bleeding. Right lower extremity: Palpable DP and PT pulse. LYMPH: No cervical adenopathy. NEURO: He is alert and oriented to person, place, and time. He has normal strength. No cranial nerve deficit deficit. Coordination and gait normal. GCS eye subscore is 4. GCS verbal subscore is 5. GCS motor subscore is 6. Cerebellar tests wnl. SKIN: Skin is warm and dry. He is not diaphoretic. PSYCH: He has a normal mood and affect. Behavior is normal. Judgment and thought content normal. Course Course 1127: The patient was evaluated in room C1. A complete history and physical exam was performed Cardiac monitoring: An order was placed for continuous cardiac monitoring. The monitor shows a rate of 80 with sinus rhythm 1510: Vital signs stable. Creatinine 2.53. Foot x-ray shows small focus of gas in the lateral ankle. Patient will be admitted to the [facility] team given his gas-forming organism possibly gangrene. Patient treated with broad-spectrum antibiotics Zosyn and vancomycin. Administered Medications Insulin Aspart (Insulin Aspart Per Unit) 0 units SC ACHS DERRICK Stop: 04/13/22 16:48 Last Admin: 03/14/22 18:23 Dose: 6 units Documented By: LIZETTE Co-signed By: [facility] Morphine Sulfate (Morphine Sulfate 2 Mg/Ml Carp) 2 mg IV Q4H PRN PRN Reason: severe pain uncontrolled by... Stop: 03/28/22 17:51 Last Admin: 03/14/22 18:03 Dose: 2 mg Documented By: LIZETTE Discontinued Medications Sodium Chloride (Nss 1000ml) 1,000 mls @ 999 mls/hr IV .Q1H1M ONE Stop: 03/14/22 12:33 Last Infusion: 03/14/22 13:45 Dose: 0 mls/hr Documented By: Admin: 03/14/22 11:56 Dose: 999 mls/hr Documented By: LINA Piperacillin Sod/Tazobactam Sod (Zosyn) 4.5 gm in 120 mls @ 240 mls/hr IV NOW ONE Stop: 03/14/22 13:13 Last Infusion: 03/14/22 13:45 Dose: 0 mls/hr Documented By: Admin: 03/14/22 13:14 Dose: 240 mls/hr Documented By: LINA Vancomycin HCl 2,750 mg/ (Sodium Chloride) 555 mls @ 200 mls/hr IV NOW ONE Stop: 03/14/22 18:05 Last Admin: 03/14/22 17:03 Dose: 200 mls/hr Documented By: LIZETTE Morphine Sulfate (Morphine Sulfate 4 Mg/Ml 1 Ml Carp\\Vial) 4 mg IV NOW STA Stop: 03/14/22 13:17 Last Admin: 03/14/22 13:38 Dose: 4 mg Documented By: LINA Ondansetron HCl (Ondansetron Inj 2 Mg/Ml 2 Ml Vial) 4 mg IV NOW STA Stop: 03/14/22 13:32 Last Admin: 03/14/22 13:38 Dose: 4 mg Documented By: LINA Medical Decision Making Laboratory Data Result diagrams: 03/14/22 11:50 03/14/22 11:50 Lab Results 03/14/22 03/14/22 03/14/22 Range/Units 11:50 11:50 11:50 WBC 10.53 (4.8-10.8) K/ul RBC 4.57 L (4.63-6.08) M/uL Hgb 13.1 L (14.0-18.0) g/dl Hct 40.5 (40.1-51.0) % MCV 88.6 (80.0-100.0) fL MCH 28.7 (25.0-34.0) pg MCHC 32.3 (32.0-36.0) g/dL RDW Std Deviation 47.8 H (36.4-46.3) fL RDW Coeff of Ever 14.9 H (11.5-14.5) % Plt Count 139 (130-400) K/uL MPV 11.2 (9.4-12.4) fL Immature Gran % (Auto) 0.6 % Neut % (Auto) 84.6 % Lymph % (Auto) 6.4 % Power % (Auto) 7.8 % Eos % (Auto) 0.2 % Baso % (Auto) 0.4 % Neut # (Auto) 8.92 H (1.4-6.5) K/uL Lymph # (Auto) 0.67 L (1.2-3.4) K/uL Power # (Auto) 0.82 (0.24-0.82) K/uL Eos # (Auto) 0.02 (0-0.50) K/uL Baso # (Auto) 0.04 (0-0.2) K/uL Immature Gran # (Auto) 0.06 H (0.00-0.02) K/uL ESR (0-20) mm/hr Sodium 136 (136-145) mmol/L Potassium 4.3 (3.5-5.1) mmol/L Chloride 103 (98-107) mmol/L Carbon Dioxide 22 (21-32) mmol/L Anion Gap 11 (3-11) BUN 31 H (6-23) mg/dl Creatinine 2.53 H (0.6-1.4) mg/dl Est Cr Clr Drug Dosing Not Reportable Est GFR ( Amer) 32.1 ml/min Est GFR (Non-Af Amer) 27.7 ml/min BUN/Creatinine Ratio 12.3 (10-20) Glucose 214 H (70-99(Fasting)) mg/dl Lactate (0.4-2.0) mmol/L Calcium 9.9 (8.5-10.1) mg/dl Total Bilirubin 1.8 H (0.2-1.0) mg/dl AST 20 (13-39) U/L ALT 17 (7-52) U/L Alkaline Phosphatase 95 (34-104) U/L C-Reactive Protein (0-0.5) mg/dl Total Protein 7.6 (6.0-8.3) gm/dl Albumin 4.2 (3.4-5.0) gm/dl Globulin 3.4 (2.5-4.0) gm/dl Albumin/Globulin Ratio 1.2 (0.9-2) SARS-CoV-2 (PCR) NEGATIVE (Negative) Influenza Type A (PCR) Negative (Neg) Influenza Type B (PCR) Negative (Neg) RSV (RT-PCR) Negative (Neg) 03/14/22 03/14/22 03/14/22 Range/Units 11:50 11:50 13:10 WBC (4.8-10.8) K/ul RBC (4.63-6.08) M/uL Hgb (14.0-18.0) g/dl Hct (40.1-51.0) % MCV (80.0-100.0) fL MCH (25.0-34.0) pg MCHC (32.0-36.0) g/dL RDW Std Deviation (36.4-46.3) fL RDW Coeff of Ever (11.5-14.5) % Plt Count (130-400) K/uL MPV (9.4-12.4) fL Immature Gran % (Auto) % Neut % (Auto) % Lymph % (Auto) % Power % (Auto) % Eos % (Auto) % Baso % (Auto) % Neut # (Auto) (1.4-6.5) K/uL Lymph # (Auto) (1.2-3.4) K/uL Power # (Auto) (0.24-0.82) K/uL Eos # (Auto) (0-0.50) K/uL Baso # (Auto) (0-0.2) K/uL Immature Gran # (Auto) (0.00-0.02) K/uL ESR 44 H (0-20) mm/hr Sodium (136-145) mmol/L Potassium (3.5-5.1) mmol/L Chloride (98-107) mmol/L Carbon Dioxide (21-32) mmol/L Anion Gap (3-11) BUN (6-23) mg/dl Creatinine (0.6-1.4) mg/dl Est Cr Clr Drug Dosing Est GFR ( Amer) ml/min Est GFR (Non-Af Amer) ml/min BUN/Creatinine Ratio (10-20) Glucose (70-99(Fasting)) mg/dl Lactate 1.5 (0.4-2.0) mmol/L Calcium (8.5-10.1) mg/dl Total Bilirubin (0.2-1.0) mg/dl AST (13-39) U/L ALT (7-52) U/L Alkaline Phosphatase (34-104) U/L C-Reactive Protein 10.95 H (0-0.5) mg/dl Total Protein (6.0-8.3) gm/dl Albumin (3.4-5.0) gm/dl Globulin (2.5-4.0) gm/dl Albumin/Globulin Ratio (0.9-2) SARS-CoV-2 (PCR) (Negative) Influenza Type A (PCR) (Neg) Influenza Type B (PCR) (Neg) RSV (RT-PCR) (Neg) Imaging Data Radiologist's Impression: Foot X-Ray 03/14/22 11:34 XR foot LT min 3V routine HISTORY: 56 years-old Male Lftpain;hxcharcotft chronicwoundonLfoot acute pain and swelling of the left foot COMPARISON: Left ankle CT 02/26/2022, 02/08/2022 and 03/20/2019 radiographs TECHNIQUE: 3 views of the left foot FINDINGS: Marked irregularity of the tibiotalar and subtalar joints redemonstrated with chronic collapse of the midfoot. Charcot neuropathy of the midfoot and hindfoot. Chronic postoperative changes with plate and screw fusion of the medial midfoot with large staple-like fixation devices within the tarsometatarsal joints. Lucency surrounding the distal aspect of the plate and screw hardware within the first metatarsal suggestive of loosening. The lateral most staple/fixation de vice is fractured. Prior resection of the distal fibula. Large cannulated screw of the distal tibia and talus. Evidence of prior hardware removal of the distal tibia. No acute fracture or dislocation. Extensive soft tissue swelling with minimal soft tissue gas within the lateral ankle. Arterial calcifications. IMPRESSION: 1. Soft tissue swelling with focus of gas within the lateral ankle. Findings may be secondary to gas-forming organism. 2. No acute fracture or dislocation identified. 3. Charcot neuropathy with chronic degenerative and postoperative changes as above. Superimposed osteomyelitis would be impossible to exclude however is considered less likely. 4. Evidence of hardware fracture and loosening as above. ACT 112: Negative or not required by law. The above report was generated using voice recognition software. It may contain grammatical, syntax or spelling errors. Electronically signed by: Todd Giang M.D. 03/14/2022 12:13 PM ECG Data Indication: + other (hyperglycemia) Rate (beats per minute): 84 Rhythm: + normal sinus ECG Intervals/blocks: + Normal QRS, + Normal NH and + Normal QT-c ECG ST segments: + Normal ST segments MDM Narrative Vital signs stable. Creatinine 2.53. Foot x-ray shows small focus of gas in the lateral ankle. Patient will be admitted to the [facility] team given his gas-forming organism possibly gangrene. Patient treated with broad-spectrum antibiotics Zosyn and vancomycin. Impression & Plan Gangrene of foot Discharge Plan Visit Data Chief Complaint: Hyperglycemia Stated Complaint: LEFT FOOT PAIN, NUEROPATHY, HIGH BLOOD SUGAR ED Provider: Steffen Zambrano Discharge Problem: Gangrene of foot Patient Disposition: Admitted As Inpatient Discharge Instructions Interventions: ED Discharge Assessment Last Done: 03/14/22 16:34
--- NOTE | 2022-03-14 12:15 | XRay Report ---
XR foot LT min 3V routine HISTORY: 56 years-old Male Lftpain;hxcharcotft chronicwoundonLfoot acute pain and swelling of the le ft foot COMPARISON: Left ankle CT 02/26/2022, 02/08/2022 and 03/20/2019 radiographs TECHNIQUE: 3 views of the left foot FINDINGS: Marked irregularity of the tibiotalar and subtalar joints redemonstrated with chronic collapse of the midfoot. Charcot neuropathy of the midfoot and hindfoot. Chronic postoperative changes with plate an d screw fusion of the medial midfoot with large staple-like fixation devices within the tarsometatars al joints. Lucency surrounding the distal aspect of the plate and screw hardware within the first met atarsal suggestive of loosening. The lateral most staple/fixation device is fractured. Prior resectio n of the distal fibula. Large cannulated screw of the distal tibia and talus. Evidence of prior hardw are removal of the distal tibia. No acute fracture or dislocation. Extensive soft tissue swelling with minimal soft tissue gas within the lateral ankle. Arterial calcif ications. IMPRESSION: 1. Soft tissue swelling with focus of gas within the lateral ankle. Findings may be secondary to gas- forming organism. 2. No acute fracture or dislocation identified. 3. Charcot neuropathy with chronic degenerative and postoperative changes as above. Superimposed oste omyelitis would be impossible to exclude however is considered less likely. 4. Evidence of hardware fracture and loosening as above. ACT 112: Negative or not required by law. The above report was generated using voice recognition software. It may contain grammatical, syntax o r spelling errors. Electronically signed by: Todd Giang M.D. 03/14/2022 12:13 PM
[2022-03-14 12:23] LABS: Alanine Aminotransferase 17 U/L (7-52); Albumin Globulin Ratio 1.2 (0.9-2); Albumin Level 4.2 gm/dl (3.4-5.0); Alkaline Phosphatase 95 U/L (34-104); Anion Gap 11 (3-11); Aspartate Aminotransferase 20 U/L (13-39); BUN Creatinine Ratio 12.3 (10-20); Bilirubin,Total 1.8 mg/dl (0.2-1.0); Blood Urea Nitrogen 31 mg/dl (6-23); Calcium 9.9 mg/dl (8.5-10.1); Carbon Dioxide 22 mmol/L (21-32); Chloride 103 mmol/L (98-107); Est GFR (African American) 32.1 ml/min; Est GFR (Non-African American) 27.7 ml/min; Globulin 3.4 gm/dl (2.5-4.0); Glucose 214 mg/dl (70-99(Fasting)); Potassium 4.3 mmol/L (3.5-5.1); Sodium 136 mmol/L (136-145); Total Protein 7.6 gm/dl (6.0-8.3)
[2022-03-14 12:39] LABS: Influenza A virus by PCR Negative (Neg); Influenza B virus by PCR Negative (Neg); RSV by PCR Negative (Neg); SARS CoV2 RNA(COVID-19) InHosp NEGATIVE (Negative)
[2022-03-14] MEDS ORDERED: PIPERACILLIN/TAZOBACTAM 4.5 GM/120 ML BAG IV ONE (12:44)
[2022-03-14] MEDS ORDERED: MoRPHine SULFATE 4 MG/ML 1 ML CARP\\VIAL IV STA (13:16)
[2022-03-14] MEDS ORDERED: ONDANSETRON INJ 2 MG/ML 2 ML VIAL IV STA (13:31)
[2022-03-14 13:49] LABS: Basophils # (auto) 0.04 K/uL (0-0.2); Basophils % (auto) 0.4 %; Eosinophils # (auto) 0.02 K/uL (0-0.50); Eosinophils % (auto) 0.2 %; Hematocrit (blood only) 40.5 % (40.1-51.0); Hemoglobin 13.1 g/dl (14.0-18.0); Immature Granulocytes # (auto) 0.06 K/uL (0.00-0.02); Immature Granulocytes % (auto) 0.6 %; Lymphocytes # (auto) 0.67 K/uL (1.2-3.4); Lymphocytes % (auto) 6.4 %; Mean Corpuscular Hemoglobin 28.7 pg (25.0-34.0); Mean Corpuscular Hgb Conc 32.3 g/dL (32.0-36.0); Mean Corpuscular Volume 88.6 fL (80.0-100.0); Mean Platelet Volume 11.2 fL (9.4-12.4); Monocytes # (auto) 0.82 K/uL (0.24-0.82); Monocytes % (auto) 7.8 %; Neutrophils # (auto) 8.92 K/uL (1.4-6.5); Neutrophils % (auto) 84.6 %; Platelet Count 139 K/uL (130-400); RDW Coefficient of Variation 14.9 % (11.5-14.5); RDW Standard Deviation 47.8 fL (36.4-46.3); Red Blood Count 4.57 M/uL (4.63-6.08); White Blood Count 10.53 K/ul (4.8-10.8)
--- NOTE | 2022-03-14 15:17 | History & Physical Report ---
Date of Service March 14, 2022 Assessment & Plan (1) Left foot infection: Plan: -Admit to med/surge -Patient is currently, hemodynamically stable, and stable on RA -Patient has a long surgical history in the left foot and received his previous care through [facility] -They are planning to take him to the OR for scheduled procedure but patient no appears to have issues with his hardware from increased use yesterday -Xray today showing focus of gas within the lateral ankle. Started on Zosyn and Vancomycin in the ED, blood cultures also ordered -Will continue with Vancomycin for now, MRSA swab, ESR, and CRP also ordered now, will follow-up -Will consult Ortho and surgery to see if he needs to be taken to the OR while admitted -AM CBC, CMP, PT/INR -Will make patient NPO at midnight in case of possible procedures tomorrow -Tylenol and tramadol for pain control (2) Open wound of ankle: Plan: -Followed outpatient by [place] [facility] -Had been on Doxycycline per wound care but did not complete the course as prescribed -See left foot infection for plan (3) Hardware complicating wound infection: Plan: -See left foot infection (4) Charcot foot due to diabetes mellitus: Plan: -See left foot infection (5) CAD (coronary artery disease): Plan: -GROUT MACHINE TENDER aspirin and plavis (6) Diabetic peripheral neuropathy associated with type 2 diabetes mellitus: Plan: -Not currently on medication, could consider gabapentin if needed (7) Chronic kidney disease, stage 3 (moderate): Plan: -Cr currently at 2.53, baseline appears to be around 2.0 -No issues with obstruction or dysuria -Was given 1L NSS bolus in the ED -Monitor am labs for improvement after IV fluids (8) Dyslipidemia: Plan: -GROUT MACHINE TENDER statin (9) OLGA (acute kidney injury): Plan: -See CKD (10) Hypertension: Plan: -Continue GROUT MACHINE TENDER carvedilol but hold losartan for now with increase in creatinine (11) Hypothyroidism: Plan: -GROUT MACHINE TENDER levothyroxine (12) 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 Holm at the time of admission History of Present Illness Chief Complaint: Left foot pain Primary Care Provider: Yunior Kelly MD Michele is a 56 year old male with a PMH significant for poorly controlled DM II, Charcot foot of the left foot with multiple previous procedures involving hardware placement with chronic left foot wound, CAD, peripheral neuropathy, HTN, hypothyroidism, who presented to the [facility] ED on 03/14/22 with a chief complaint of left foot pain. The patient follows with [facility] for the left foot and is also followed by wound care for the chronic left foot wound. The patient has been treated with Doxycycline outpatient from wound care. The patient was seen in [place] by Orthopedics who had plans for CT of the left foot for further evaluation. They are also planning to take him to the OR for burring down of the later bony prominence of the left foot. In the ED the patient was found to have a temperature of 37.9, he was hemodynamically stable and stable on room air. Labs were remarkable for a Cr of 2.53 (baseline appears to be around 2.0), glucose of 214, xray of the left foot revealed "Soft tissue swelling with focus of gas within the lateral ankle. Findings may be secondary to gas-forming organism.No acute fracture or dislocation identified. Charcot neuropathy with chronic degenerative and postoperative changes as above. Superimposed osteomyelitis would be impossible to exclude however is considered less likely. Evidence of hardware fracture and loosening as above.". The patient was given zosyn, vancomycin, and a 1L NSS bolus. At the time of the exam the patient was resting comfortably in bed in no acute distress with his sitting bedside. They state that he was seen by [facility] last month and had the CT left the left leg completed as previously planned, he has yet to hear back from his surgeon regarding OR plans at this time. He is supposed to keep weight off his left leg and normally uses a cane to ambulate. He and his worked parking for the football game yesterday and then went into the game. While walking out of the stadium he had to put more weight on his left foot in leg as his right leg became too tired and began to cramp. He then experieced significant pain in the left foot compared to baseline. He denies any acute traumatic even yesterday but states that he has had significant pain since and felt as though something new was wrong with it. He states that he was prescribed a 10 day course of antibiotic by wound care last month but it took him about 20 days to complete it as he is bad at remembering to take his medications. He feels as though he has had fever and chills over the past 24 hours and had one episode of vomiting. He denies any other complaints at the current time. Allergies Allergy/AdvReac Type Severity Reaction Status Date / Time lisinopril AdvReac Unknown cough Verified 03/01/22 14:52 Home Medications Medication Instructions Recorded Confirmed Type aspirin 81 mg tablet 81 mg PO QAM 02/06/19 03/01/22 History Accu-Chek Guide test strips (blood #400 ea 08/22/19 03/01/22 Rx sugar diagnostic) indomethacin 50 mg capsule 50 mg PO TID PRN gout #15 caps 11/11/20 03/01/22 Rx sildenafil 50 mg tablet See Rx Instructions PO DAILY PRN 11/11/20 03/01/22 Rx sexual activity #30 tabs blood-glucose meter,continuous #1 ea 04/06/21 03/01/22 Rx (Dexcom G6 Apprentice Technician misc) rosuvastatin 40 mg tablet 40 mg PO QAM #90 tabs 04/27/21 03/01/22 Rx fenofibrate nanocrystallized 48 mg 48 mg PO QAM #90 tabs 05/22/21 03/01/22 Rx tablet blood-glucose sensor (Dexcom G6 #3 ea 07/17/21 03/01/22 Rx Sensor device) pen needle, diabetic 32 gauge x #100 ea 09/07/21 03/01/22 Rx 5/32" (BD Ultra-Fine Francie Pen Needle) Dexcom G6 Transmitter #1 ea 10/02/21 03/01/22 Rx (blood-glucose transmitter) levothyroxine 112 mcg tablet 112 mcg PO QAM #30 tabs 10/21/21 03/01/22 Rx (Euthyrox) Novolog U-100 Insulin aspart 100 120 unit (1.2 mL) .Route DAILY 30 11/19/21 03/01/22 Rx unit/mL subcutaneous solution days #40 mL (insulin aspart U-100) losartan 25 mg tablet 25 mg PO DAILY #30 tabs 12/02/21 03/01/22 Rx nitroglycerin 0.4 mg sublingual 0.4 mg sublingual Q5M PRN chest 12/03/21 03/01/22 Rx tablet pain #25 tabs calcitriol 0.5 mcg capsule 0.5 mcg PO DAILY 12/21/21 03/01/22 History clopidogrel 75 mg tablet 75 mg PO QAM #90 tabs 12/28/21 03/01/22 Rx insulin glargine 100 unit/mL (3 75 unit subcut QAM 01/07/22 03/01/22 History mL) subcutaneous pen (Basaglar KwikPen U-100 Insulin) insulin syringe,safetyneedle 1 mL 01/07/22 03/01/22 History 31 gauge x 15/64" (Assure ID Insulin Safety) allopurinol 300 mg tablet 300 mg PO DAILY #90 tabs 02/02/22 03/01/22 Rx carvedilol 12.5 mg tablet 12.5 mg PO DAILY #90 tabs 02/02/22 03/01/22 Rx doxycycline hyclate 100 mg tablet 100 mg PO bid 02/15/22 03/01/22 History Past Med/Surg History Medical History Bulging disc CAD (coronary artery disease) Follows with Dr. Pringle Cardiac murmur Cataract Chronic kidney disease (CKD) follows with Dr. Lewis Diabetes mellitus with diabetic polyneuropathy IDDM type 2 Dyslipidemia Gout History of colon polyps History of kidney stones History of myocardial infarction 2010 Hypertension Hypothyroidism Obesity (BMI 30.0-34.9) Osteoarthritis Proliferative diabetic retinopathy Surgical History H/O heart artery stent x7 History of ankle surgery Left - January 2017 History of bursectomy Left elbow History of cardiac cath 2017 [place] - 3 stents 2010 [facility] - 4 stents History of colonoscopy History of cystoscopy with stone extraction History of foot surgery Left - September 2017 S/P excisional debridement RLE Family History Father Diabetes Coronary heart disease Unknown Heart disease History of nephrolithiasis Hypertension Mother No problems noted. 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 All systems have been reviewed and are otherwise negative. Physical Exam Physical Exam: Physical Exam: General: In no acute distress, stated age, chronically ill-appearing HEENT: Normocephalic, atraumatic, no scleral icterus, pupils around round, symmetrical, and reactive to light, moist mucus membranes, trachea midline, no thyromegaly Chest/Pulm: No respiratory distress, symmetrical chest expansion, clear breath sounds throughout Cardiac: RRR, systolic murmur noted Abdomen: Negative for ascites and bruising, normoactive bowel sounds, soft, non-tender to palpation throughout Musculoskeletal: Patient with chronic Charcot foot of the left foot, current swollen and erythematous especially around the ankle and dorsal aspect, patient with chronic wound on the lateral mallelous which is not currently draining, reduced ROM of the left foot due to pain and swelling Extremities: Radial, dorsalis pedis, and posterior tibial pulses are intact and symmetrical, no edema noted in the BL LE's Skin: Warm, dry, no rashes , lesions, or scars noted Neuro: Alert and oriented to person, place, month, year, and president, no focal defects, CN II-XII tested and intact, finger to nose test negative, no tremors noted Psych: No acute distress, calm and cooperative during the exam Results & Data Results & Data ([facility]) Vital Signs (Past 12 Hours) Vital Signs Temp Pulse Resp BP Pulse Ox O2 Del Method 03/14/22 11:49 83 18 98 Room Air 03/14/22 11:06 37.9 C H 85 16 135/77 100 Laboratory Results Abnormal lab results 03/14/22 03/14/22 Range/Units 11:50 11:50 RBC 4.57 L (4.63-6.08) M/uL Hgb 13.1 L (14.0-18.0) g/dl RDW Std Deviation 47.8 H (36.4-46.3) fL RDW Coeff of Ever 14.9 H (11.5-14.5) % Neut # (Auto) 8.92 H (1.4-6.5) K/uL Lymph # (Auto) 0.67 L (1.2-3.4) K/uL Immature Gran # (Auto) 0.06 H (0.00-0.02) K/uL BUN 31 H (6-23) mg/dl Creatinine 2.53 H (0.6-1.4) mg/dl Glucose 214 H (70-99(Fasting)) mg/dl Total Bilirubin 1.8 H (0.2-1.0) mg/dl Diagnostic Findings Foot X-Ray 03/14/22 11:34 XR foot LT min 3V routine HISTORY: 56 years-old Male Lftpain;hxcharcotft chronicwoundonLfoot acute pain and swelling of the left foot COMPARISON: Left ankle CT 02/26/2022, 02/08/2022 and 03/20/2019 radiographs TECHNIQUE: 3 views of the left foot FINDINGS: Marked irregularity of the tibiotalar and subtalar joints redemonstrated with chronic collapse of the midfoot. Charcot neuropathy of the midfoot and hindfoot. Chronic postoperative changes with plate and screw fusion of the medial midfoot with large staple-like fixation devices within the tarsometatarsal joints. Lucency surrounding the distal aspect of the plate and screw hardware within the first metatarsal suggestive of loosening. The lateral most staple/fixation device is fractured. Prior resection of the distal fibula. Large cannulated screw of the distal tibia and talus. Evidence of prior hardware removal of the distal tibia. No acute fracture or dislocation. Extensive soft tissue swelling with minimal soft tissue gas within the lateral ankle. Arterial calcifications. IMPRESSION: 1. Soft tissue swelling with focus of gas within the lateral ankle. Findings may be secondary to gas-forming organism. 2. No acute fracture or dislocation identified. 3. Charcot neuropathy with chronic degenerative and postoperative changes as above. Superimposed osteomyelitis would be impossible to exclude however is considered less likely. 4. Evidence of hardware fracture and loosening as above. ACT 112: Negative or not required by law. The above report was generated using voice recognition software. It may contain grammatical, syntax or spelling errors. Electronically signed by: Todd Giang M.D. 03/14/2022 12:13 PM ECG Additional Comments: Poor data quality, interpretation may be adversely affected Normal sinus rhythm Left ventricular hypertrophy with repolarization abnormality Abnormal ECG When compared with ECG of 17-NOV-2017 13:15, Vent. rate has increased BY 34 BPM T wave inversion now evident in Lateral leads Code Status & VTE Plan Code Status Full code VTE Prophylaxis Plan VTE Prophylaxis will be ordered: Yes Supervising Physician Co-Signing Physician Notes Patient seen and examined, chart reviewed, case discussed with Kelvin Lange PA-C and I agree with the assessment and plan as above except as otherwise noted Labs and images reviewed Hx L charcot foot. L chronic malleolar wound. Last seen by [facility] 1 month ago w/ CT. Anticipated for outpatient bony revision. Is supposed to be NWB. Did work parking for the game yesterday with a cane but had progressive pain walking down the steps and placing pressure on L leg. Cannot bear weight since and has had increased pain and swelling since them. Wound care put 10 days of doxy last month, poor compliance and completed over 20 days. Foot warm, swollen, tender compared to normal. No WBC. CRP pending. CT with soft tissue swelling ?foci of air. Concern for fracturing and movement of hardware. BC pedning. Left foot swollen, erythematous and distal to the ankle, lateral malleoli are ulceration, restricted dorsiflexion/plantarflexion. RRR +sm, CTAB. Right DFI, history of Charcot right foot with concern for hardware fracture - 1. Soft tissue swelling with focus of gas within the lateral ankle. Findings may be secondary to gas-forming organism. 2. No acute fracture or dislocation identified. 3. Charcot neuropathy with chronic degenerative and postoperative changes as above. Superimposed osteomyelitis would be impossible to exclude however is considered less likely. 4. Evidence of hardware fracture and loosening as above. Orthopedics consulted. Continue broad coverage antibiotics, superimposed osteocannot be excluded based on imaging. Zosyn/Vanco on admission, convert to Zosyn/Dapto given need for broad coverage and renal dysfunction No leukocytosis, creatinine mildly, CRP elevated. Trend CRP Basal/bolus control for DM above. Agree with management otherwise as above PG Care Time/CCT Total # of Minutes Spent Total Time Spent with Patient: Total time spent is greater than 50% in coordination of care (as documented) at patient's floor/unit and/or counseling patient: [place] [address] Initial Inpt Care Lvl 3 Patient Type Established History Comprehensive Exam Comprehensive Medical Decision Making High Complexity Diagnoses Left foot infection L08.9 Open wound of ankle S91.009A Hardware complicating wound infection T84.7XXA Charcot foot due to diabetes mellitus E11.610 CAD (coronary artery disease) I25.10 Diabetic peripheral neuropathy associated with type 2 diabetes mellitus E11.42 Chronic kidney disease, stage 3 (moderate) N18.3 Dyslipidemia E78.5 OLGA (acute kidney injury) N17.9 Hypertension I10 Hypothyroidism E03.9 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
[2022-03-14] MEDS ORDERED: VANCOMYCIN HCL 2,750 MG in SODIUM CHLORIDE 0.9% 500 ML IV ONE (15:19)
[2022-03-14] MEDS ORDERED: VANCOMYCIN CONSULT ACTIVE PRN (15:19)
[2022-03-14] MEDS ORDERED: GLUCOSE 40% GEL 15 GM TUBE PO PRN (16:49)
[2022-03-14] MEDS ORDERED: GLUCOSE 10 TAB/TUBE PO PRN (16:49)
[2022-03-14] MEDS ORDERED: CARBOHYDRATES FOR HYPOGLYCEMIA PO PRN (16:49)
[2022-03-14] MEDS ORDERED: ACETAMINOPHEN 325 MG TAB PO PRN (16:49)
[2022-03-14] MEDS ORDERED: DEXTROSE 50% 50 ML SYRINGE IV PRN (16:49)
[2022-03-14] MEDS ORDERED: ROSUVASTATIN CALCIUM 20 MG TAB PO SCH (16:49)
[2022-03-14] MEDS ORDERED: GLUCAGON FOR INJ 1 MG VIAL SQ PRN (16:49)
[2022-03-14] MEDS: MoRPHine SULFATE 2 MG/ML CARP IV PRN ×2 (18:03→23:17)
[2022-03-14] MEDS: INSULIN ASPART PER UNIT SC SCH ×2 (18:23→21:30)
--- NOTE | 2022-03-14 19:18 | Orthopedic Consultation ---
Date of Service March 14, 2022 Assessment & Plan (1) Open wound of ankle: He has the lateral ulceration of his foot which needs to be treated. I do not think an urgent I&D is necessary. I do not see any signs of necrotizing fasciitis. He needs to follow-up with his foot and ankle specialist in [place] and proceed with the I&D and bone removal that he was planning to do in the near future. In the meantime, he should be on some antibiotics and he should be nonweightbearing on his left foot. History of Present Illness Reason for Consultation: Left foot ulceration. Requesting Physician: . Attending Physician: Charan Reno MD Michele is a pleasant 56-year-old male with chronic diabetic neuropathy. He sustained an ankle fracture by twisting his ankle back in 2017. He walked on it for several weeks. He then saw [facility] and underwent an open reduction internal fixation of his left ankle. Unfortunately, when the cast was removed 4 weeks later, he was having significant pain and swelling of his left foot. He was found to have a worsening Charcot neuropathy of his left foot. He was then sent to [facility]. He underwent a procedure to remove the previous hardware and fuse his tibiotalar joint. He also had a procedure for his worsening Charcot foot at the same time. After that he returned to [place] for a third procedure on his foot related to his Charcot neuropathy. He continues to ambulate on the lateral aspect of his left foot. He has been working with orthotics and a special boot. He finally has a boot orthotic (which sounds like a CHITINA boot) that allows him to ambulate better, unfortunately, it has now worn an ulceration of the lateral aspect of his foot. He has already followed up with his foot and ankle specialist in [place] regarding this. The patient states that he is supposed to have a procedure done which would include an I&D of the ulceration and the removal of some lateral sided bone to help fit the orthotics better. He said the exact date of that procedure has not been set. The ulceration on his ankle is now 4 to 6 weeks old. He was having some fevers. He was concerned there might be an infection so he came to [facility] and was admitted to the medical service. Orthopedics was consulted to evaluate and treat.. Allergies Allergy/AdvReac Type Severity Reaction Status Date / Time lisinopril AdvReac Unknown cough Verified 03/14/22 16:38 Home Medications Medication Instructions Recorded Confirmed Type Accu-Chek Guide test strips (blood #400 ea 08/22/19 03/01/22 Rx sugar diagnostic) indomethacin 50 mg capsule 50 mg PO TID PRN gout #15 caps 11/11/20 03/14/22 Rx sildenafil 50 mg tablet See Rx Instructions PO DAILY PRN 11/11/20 03/14/22 Rx sexual activity #30 tabs blood-glucose meter,continuous #1 ea 04/06/21 03/01/22 Rx (Dexcom G6 Ceramic Tiler misc) rosuvastatin 40 mg tablet 40 mg PO QAM #90 tabs 04/27/21 03/14/22 Rx fenofibrate nanocrystallized 48 mg 48 mg PO QAM #90 tabs 05/22/21 03/14/22 Rx tablet blood-glucose sensor (Dexcom G6 #3 ea 07/17/21 03/01/22 Rx Sensor device) pen needle, diabetic 32 gauge x #100 ea 09/07/21 03/01/22 Rx 5/32" (BD Ultra-Fine Francie Pen Needle) Dexcom G6 Transmitter #1 ea 10/02/21 03/01/22 Rx (blood-glucose transmitter) levothyroxine 112 mcg tablet 112 mcg PO QAM #30 tabs 10/21/21 03/14/22 Rx (Euthyrox) Novolog U-100 Insulin aspart 100 120 unit (1.2 mL) .Route DAILY 30 11/19/21 03/14/22 Rx unit/mL subcutaneous solution days #40 mL (insulin aspart U-100) losartan 25 mg tablet 25 mg PO DAILY #30 tabs 12/02/21 03/14/22 Rx nitroglycerin 0.4 mg sublingual 0.4 mg sublingual Q5M PRN chest 12/03/21 03/14/22 Rx tablet pain #25 tabs calcitriol 0.5 mcg capsule 0.5 mcg PO DAILY 12/21/21 03/14/22 History clopidogrel 75 mg tablet 75 mg PO QAM #90 tabs 12/28/21 03/14/22 Rx insulin glargine 100 unit/mL (3 75 unit subcut QAM 01/07/22 03/14/22 History mL) subcutaneous pen (Basaglar KwikPen U-100 Insulin) insulin syringe,safetyneedle 1 mL 01/07/22 03/01/22 History 31 gauge x 15/64" (Assure ID Insulin Safety) allopurinol 300 mg tablet 300 mg PO DAILY #90 tabs 02/02/22 03/14/22 Rx carvedilol 12.5 mg tablet 12.5 mg PO DAILY #90 tabs 02/02/22 03/14/22 Rx doxycycline hyclate 100 mg tablet 100 mg PO bid 02/15/22 03/14/22 History aspirin 81 mg tablet,delayed 81 mg PO QAM 03/14/22 03/14/22 History release Past Med/Surg History Medical History Bulging disc CAD (coronary artery disease) Follows with Dr. Pringle Cardiac murmur Cataract Chronic kidney disease (CKD) follows with Dr. Lewis Diabetes mellitus with diabetic polyneuropathy IDDM type 2 Dyslipidemia Gout History of colon polyps History of kidney stones History of myocardial infarction 2010 Hypertension Hypothyroidism Obesity (BMI 30.0-34.9) Osteoarthritis Proliferative diabetic retinopathy Surgical History H/O heart artery stent x7 History of ankle surgery Left - January 2017 History of bursectomy Left elbow History of cardiac cath 2016 - [place] - 3 stents 2010 - [facility] - 4 stents History of colonoscopy History of cystoscopy with stone extraction History of foot surgery Left - September 2017 S/P excisional debridement RLE Family History Father Diabetes Coronary heart disease Unknown Heart disease History of nephrolithiasis Hypertension Mother No problems noted. 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 Physical Exam On physical examination of his left ankle, there is a small ulceration on the lateral aspect. There is no purulent discharge. There is minimal cellulitis. He does have a deformity of his left foot.. Constitutional WD/WN, vitals as above Eyes PERRL, conjunctivae normal, anicteric sclerae ENMT external ear and nose normal, oropharynx normal Neck trachea midline, no thyromegaly Respiratory normal respiratory effort, lungs clear to auscultation Cardiovascular RRR, no murmur, no edema Gastrointestinal (Abdomen) normal bowel sounds, soft, nontender, no hepatosplenomegaly Skin no rashes, warm and dry Psychiatric A+Ox3, euthymic affect Results & Data Results & Data Laboratory Results . Diagnostic Findings X-rays and CT scan of the left foot show severe Charcot arthropathy. I do not appreciate any new acute fractures. There is a little bit of air within the subcutaneous space. There is possibly a small infection. Nothing appears to be affecting the bone and there is no signs of osteomyelitis.. PG Care Time/CCT Total # of Minutes Spent Total Time Spent with Patient: Total time spent is greater than 50% in coordination of care (as documented) at patient's floor/unit and/or counseling patient: Coding Level of Care Code 90208 Inpt Consult Level 4 Diagnoses Open wound of ankle S91.009A
[2022-03-14] MEDS: CLOPIDOGREL BISULFATE 75 MG TAB PO SCH (19:23)
[2022-03-14] MEDS: PIPERACILLIN/TAZOBACTAM 3.375 GM in DEXTROSE 5% 100 ML IV SCH (19:23)
[2022-03-14] MEDS: allopurinoL 300 MG TAB PO SCH (19:23)
[2022-03-14] MEDS: carvediloL 12.5 MG TAB PO SCH (19:24)
[2022-03-14] MEDS: CALCITRIOL 0.25 MCG CAPSULE PO SCH (19:24)
[2022-03-14] MEDS: traMADol HCL 50 MG TABLET PO PRN (20:03)
[2022-03-14] MEDS: HEPARIN SOD 5,000 UNIT/0.5 ML VIAL SQ SCH (20:04)
[2022-03-14] MEDS: LANTUS PER UNIT CHARGE SQ SCH (21:30)
[2022-03-14] MEDS: MELATONIN 3 MG TAB PO PRN (23:17)
[2022-03-15] MEDS: PIPERACILLIN/TAZOBACTAM 3.375 GM in DEXTROSE 5% 100 ML IV SCH ×3 (01:00→18:21)
[2022-03-15] MEDS: LEVOTHYROXINE SODIUM 112 MCG TABLET PO SCH (05:32)
[2022-03-15] MEDS ORDERED: INSULIN ASPART PER UNIT SC SCH (06:00)
[2022-03-15 06:23] LABS: Hematocrit (blood only) 32.6 % (40.1-51.0); Hemoglobin 10.5 g/dl (14.0-18.0); Mean Corpuscular Hemoglobin 28.8 pg (25.0-34.0); Mean Corpuscular Hgb Conc 32.2 g/dL (32.0-36.0); Mean Corpuscular Volume 89.6 fL (80.0-100.0); Platelet Count 100 K/uL (130-400); RDW Coefficient of Variation 14.7 % (11.5-14.5); Red Blood Count 3.64 M/uL (4.63-6.08); White Blood Count 7.28 K/ul (4.8-10.8)
[2022-03-15 06:34] LABS: INR 1.2 (0.9-1.1); Prothrombin Time 12.3 Seconds (9.0-12.0)
[2022-03-15 06:51] LABS: Albumin Globulin Ratio 1.3 (0.9-2); Albumin Level 3.5 gm/dl (3.4-5.0); BUN Creatinine Ratio 12.8 (10-20); Calcium 9.3 mg/dl (8.5-10.1); Creatinine Clr Calc Pharmacy 43.6 ml/min; Est GFR (African American) 33.7 ml/min; Globulin 2.7 gm/dl (2.5-4.0); Potassium 4.3 mmol/L (3.5-5.1); Total Protein 6.2 gm/dl (6.0-8.3)
[2022-03-15] MEDS: carvediloL 12.5 MG TAB PO SCH (07:36)
[2022-03-15] MEDS: LANTUS PER UNIT CHARGE SQ SCH ×2 (08:55→21:41)
--- NOTE | 2022-03-15 08:59 | Hospitalist Progress Note ---
Date of Service March 15, 2022 Assessment & Plan (1) Left foot infection: Plan: Long surgical hx followed by [facility] *Of note, took 20 days to complete 10 days doxy as "bad at remembering to take medications" suspect noncompliance issues baseline Xray with Soft tissue swelling with focus of gas within the lateral ankle. Findings may be secondary to gas-forming organism. (IS IN AREA OF SWELLING/ERYTHEMA/POSSIBLE FLUID COLLECTION ON EXAM) 2. No acute fracture or dislocation identified. 3. Charcot neuropathy with chronic degenerative and postoperative changes as above. Superimposed osteomyelitis would be impossible to exclude however is considered less likely. 4. Evidence of hardware fracture and loosening as above. Ortho consulted -- no plans for I&D, diet ordered. to be NWB to LLE Blood cultures pending -- NGTD 24 hours ESR 44, CRP 10.95, procal 1.94, concerning for osteo/infection Remains on Dapto/Zosyn for now WBC 10.5--> 7.2k Pain control, antiemetics prn Order MRI foot/ankle for further eval given elevated inflammatory markers asked to revisit given exam and elevated procal/esr/crp -- Dr Thompson deferred to Dr Grant will eventually need outpt f/u [facility], however do suspect may benefit from more urgent I&D pending MRi results Consulted PT/OT to ensure safe for d/c home pending MRI results/ortho eval in follow up (2) Open wound of ankle: Plan: -Followed outpatient [facility] -Had been on Doxycycline per wound care but did not complete the course as prescribed -- took 20 days to complete 10 day course -See left foot infection for plan wound rn consulted (3) Hardware complicating wound infection: Plan: -See left foot infection (4) Charcot foot due to diabetes mellitus: Plan: -See left foot infection (5) CAD (coronary artery disease): Plan: ICM w/ LVEF 45% s/p stenting x3 -MILK OF LIME SLAKER aspirin and plavix, carvedilol BID, crestor No CP reported (6) Diabetic peripheral neuropathy associated with type 2 diabetes mellitus: Plan: A1c 7.6 holding home meds, ordered glargine 18u BID, ISS while inpatient Monitor BSGs Check B12 --> 187. IM while inpatient, continue PO at discharge also add mag to am labs (low 1.7 in 2018, no recent values) Consider gabapentin (7) Chronic kidney disease, stage 3 (moderate): Plan: Cr at 2.53 on admit, baseline appears to be around 2.0 -No issues with obstruction or dysuria -Was given 1L NSS bolus in the ED , will order additional 500cc @ 80cc/hr for today Of note CT RLE end of the month with contrast, ?if contrast induced recently at all BMP in AM (8) Dyslipidemia: Plan: -MILK OF LIME SLAKER statin (9) OLGA (acute kidney injury): Plan: -See CKD, IVF ordered suspect recent OLGA from contrast in patient with baseline Cr 2 and got contrast 02/26/22 (10) Hypertension: Plan: -Continue MILK OF LIME SLAKER carvedilol but hold losartan for now with increase in creatinine (11) Hypothyroidism: Plan: TSH 1.12 this summer, continue Synthroid 112mcg daily (12) 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, with long-term current use of insulin: Plan: -Start with 18 units Glargine BID -Correction factor of 20, Carb ration of 7 -Consistent carb diet monitor BSGs B12 check/replacement if needed (13) Gangrene of foot: (14) Anemia: Plan: multifactorial hgb in 10.5 ckd, vit d deficiency MCV normocytic, B12 low as checked for neuropathy and was low checked iron/folate given such iron low 16, trans % sat 9% --> ordered venofer 200mg IV x 1 for today CBC in AM (15) B12 deficiency: Plan: 187 on check IM ordered while inpatient, rec to continue PO at discharge Plan continued inpatient stay consulted PT/OT Admission and Anticipated Discharge Date Admission Date: March 14, 2022 Subjective Eval this morning, at bedside. Looking into if orthopedics wanted inpatient transfer or if send on PO abx and outpatient follow up. Pain controlled with ordered medications, less painful than day prior. Issues with compliance. Had some nausea after eating this morning (happens at home), not on PPI. Discussed daily pepcid may be effective. To be NWB LLE, with concerns in him being able to maintain that at home. Discussed will ask PT to evaluate and see feasibility or if would need to arrange rehab and arrange f/u while at rehab. No fever/chills, no chest pain, shortness of breath or abdominal pain, nausea at present. questions/concerns addressed. Discussed with supervising provider and patient/, given elevated procal/ESR/CRP will obtain MRI for further evaluation and asked orthopedics to please visit this afternoon for additional recommendations as not clear inpatient need for tx vs dc on abx and outpatient follow up. Dr Thompson deferred to Dr Grant, awaiting response. Review of Systems Review of Systems: All systems reviewed & are unremarkable except as noted in HPI & below Physical Exam Physical Exam: General: WD/obese male, chronically ill appearing, no acute distress, at bedside HEENT: head normocephalic, atraumatic, mmm, trachea midline without deviation RespL CTAB, no w/c/r, on room air CV: RRR, +systolic murmur, no pitting edema to calves/calf tenderness GI: +BS, nontender no russell MSK/Neuro: moves all extremities charcot foot to the left, prior surgical scars well healed warmth, edema to medial forefoot and lateral hindfoot (lateral malleolous, chronic reported) which are tender to palpation, dressing c/d/i, no purulent drainage expressed reduced ROM due to pain/swelling no focal deficit, no slurred speech/facial droop, follows commands +neuropathy to light touch Skin: see above, otherwise, warm dry Results & Data Results & Data ([facility]) Vital Signs (Past 12 Hours) Vital Signs Temp Pulse Resp BP Pulse Ox O2 Del Method 03/15/22 07:24 36.9 C 62 18 109/56 L 97 Room Air 03/14/22 23:07 37.2 C 69 18 105/56 L 96 Room Air Laboratory Results 03/15/22 03/15/22 03/15/22 Range/Units 11:57 09:16 05:51 WBC (4.8-10.8) K/ul RBC (4.63-6.08) M/uL Hgb (14.0-18.0) g/dl Hct (40.1-51.0) % MCV (80.0-100.0) fL MCH (25.0-34.0) pg MCHC (32.0-36.0) g/dL RDW Std Deviation (36.4-46.3) fL RDW Coeff of Ever (11.5-14.5) % Plt Count (130-400) K/uL MPV (9.4-12.4) fL ESR (0-20) mm/hr PT (9.0-12.0) Seconds INR (0.9-1.1) Sodium (136-145) mmol/L Potassium (3.5-5.1) mmol/L Chloride (98-107) mmol/L Carbon Dioxide (21-32) mmol/L Anion Gap (3-11) BUN (6-23) mg/dl Creatinine (0.6-1.4) mg/dl Est Cr Clr Drug Dosing ml/min Est GFR ( Amer) ml/min Est GFR (Non-Af Amer) ml/min BUN/Creatinine Ratio (10-20) Glucose (70-99(Fasting)) mg/dl POC Glucose 148 H (70-99) mg/dl Calcium (8.5-10.1) mg/dl Iron 16 L (35-175) mcg/dl TIBC 184 L (250-450) mcg/dl Unsaturated IBC 168 (155-355) mcg/dl Transferrin % Sat 9 L (20-50) % Ferritin 190.6 (8-388) ng/ml Total Bilirubin (0.2-1.0) mg/dl AST (13-39) U/L ALT (7-52) U/L Alkaline Phosphatase (34-104) U/L C-Reactive Protein (0-0.5) mg/dl Total Protein (6.0-8.3) gm/dl Albumin (3.4-5.0) gm/dl Globulin (2.5-4.0) gm/dl Albumin/Globulin Ratio (0.9-2) Vitamin B12 187 (180-914) pg/ml Folate 17.64 (>5.38) ng/ml Procalcitonin (0-0.5) ng/ml Nasal Screen MRSA (PCR) (Negative) 03/15/22 03/15/22 03/15/22 Range/Units 05:51 05:51 05:51 WBC 7.28 (4.8-10.8) K/ul RBC 3.64 L (4.63-6.08) M/uL Hgb 10.5 L (14.0-18.0) g/dl Hct 32.6 L (40.1-51.0) % MCV 89.6 (80.0-100.0) fL MCH 28.8 (25.0-34.0) pg MCHC 32.2 (32.0-36.0) g/dL RDW Std Deviation 48.0 H (36.4-46.3) fL RDW Coeff of Ever 14.7 H (11.5-14.5) % Plt Count 100 L (130-400) K/uL MPV 11.0 (9.4-12.4) fL ESR (0-20) mm/hr PT 12.3 H (9.0-12.0) Seconds INR 1.2 H (0.9-1.1) Sodium 135 L (136-145) mmol/L Potassium 4.3 (3.5-5.1) mmol/L Chloride 105 (98-107) mmol/L Carbon Dioxide 22 (21-32) mmol/L Anion Gap 8 (3-11) BUN 31 H (6-23) mg/dl Creatinine 2.43 H (0.6-1.4) mg/dl Est Cr Clr Drug Dosing 43.6 ml/min Est GFR ( Amer) 33.7 ml/min Est GFR (Non-Af Amer) 29.0 ml/min BUN/Creatinine Ratio 12.8 (10-20) Glucose 153 H (70-99(Fasting)) mg/dl POC Glucose (70-99) mg/dl Calcium 9.3 (8.5-10.1) mg/dl Iron (35-175) mcg/dl TIBC (250-450) mcg/dl Unsaturated IBC (155-355) mcg/dl Transferrin % Sat (20-50) % Ferritin (8-388) ng/ml Total Bilirubin 2.0 H (0.2-1.0) mg/dl AST 14 (13-39) U/L ALT 13 (7-52) U/L Alkaline Phosphatase 73 (34-104) U/L C-Reactive Protein (0-0.5) mg/dl Total Protein 6.2 (6.0-8.3) gm/dl Albumin 3.5 (3.4-5.0) gm/dl Globulin 2.7 (2.5-4.0) gm/dl Albumin/Globulin Ratio 1.3 (0.9-2) Vitamin B12 (180-914) pg/ml Folate (>5.38) ng/ml Procalcitonin (0-0.5) ng/ml Nasal Screen MRSA (PCR) (Negative) 03/15/22 03/14/22 03/14/22 Range/Units 05:40 20:23 19:30 WBC (4.8-10.8) K/ul RBC (4.63-6.08) M/uL Hgb (14.0-18.0) g/dl Hct (40.1-51.0) % MCV (80.0-100.0) fL MCH (25.0-34.0) pg MCHC (32.0-36.0) g/dL RDW Std Deviation (36.4-46.3) fL RDW Coeff of Ever (11.5-14.5) % Plt Count (130-400) K/uL MPV (9.4-12.4) fL ESR (0-20) mm/hr PT (9.0-12.0) Seconds INR (0.9-1.1) Sodium (136-145) mmol/L Potassium (3.5-5.1) mmol/L Chloride (98-107) mmol/L Carbon Dioxide (21-32) mmol/L Anion Gap (3-11) BUN (6-23) mg/dl Creatinine (0.6-1.4) mg/dl Est Cr Clr Drug Dosing ml/min Est GFR ( Amer) ml/min Est GFR (Non-Af Amer) ml/min BUN/Creatinine Ratio (10-20) Glucose (70-99(Fasting)) mg/dl POC Glucose 152 H 193 H (70-99) mg/dl Calcium (8.5-10.1) mg/dl Iron (35-175) mcg/dl TIBC (250-450) mcg/dl Unsaturated IBC (155-355) mcg/dl Transferrin % Sat (20-50) % Ferritin (8-388) ng/ml Total Bilirubin (0.2-1.0) mg/dl AST (13-39) U/L ALT (7-52) U/L Alkaline Phosphatase (34-104) U/L C-Reactive Protein (0-0.5) mg/dl Total Protein (6.0-8.3) gm/dl Albumin (3.4-5.0) gm/dl Globulin (2.5-4.0) gm/dl Albumin/Globulin Ratio (0.9-2) Vitamin B12 (180-914) pg/ml Folate (>5.38) ng/ml Procalcitonin (0-0.5) ng/ml Nasal Screen MRSA (PCR) Negative (Negative) 03/14/22 03/14/22 03/14/22 Range/Units 17:15 15:56 11:50 WBC (4.8-10.8) K/ul RBC (4.63-6.08) M/uL Hgb (14.0-18.0) g/dl Hct (40.1-51.0) % MCV (80.0-100.0) fL MCH (25.0-34.0) pg MCHC (32.0-36.0) g/dL RDW Std Deviation (36.4-46.3) fL RDW Coeff of Ever (11.5-14.5) % Plt Count (130-400) K/uL MPV (9.4-12.4) fL ESR (0-20) mm/hr PT (9.0-12.0) Seconds INR (0.9-1.1) Sodium (136-145) mmol/L Potassium (3.5-5.1) mmol/L Chloride (98-107) mmol/L Carbon Dioxide (21-32) mmol/L Anion Gap (3-11) BUN (6-23) mg/dl Creatinine (0.6-1.4) mg/dl Est Cr Clr Drug Dosing ml/min Est GFR ( Amer) ml/min Est GFR (Non-Af Amer) ml/min BUN/Creatinine Ratio (10-20) Glucose (70-99(Fasting)) mg/dl POC Glucose 190 H (70-99) mg/dl Calcium (8.5-10.1) mg/dl Iron (35-175) mcg/dl TIBC (250-450) mcg/dl Unsaturated IBC (155-355) mcg/dl Transferrin % Sat (20-50) % Ferritin (8-388) ng/ml Total Bilirubin (0.2-1.0) mg/dl AST (13-39) U/L ALT (7-52) U/L Alkaline Phosphatase (34-104) U/L C-Reactive Protein 10.95 H (0-0.5) mg/dl Total Protein (6.0-8.3) gm/dl Albumin (3.4-5.0) gm/dl Globulin (2.5-4.0) gm/dl Albumin/Globulin Ratio (0.9-2) Vitamin B12 (180-914) pg/ml Folate (>5.38) ng/ml Procalcitonin 1.94 H (0-0.5) ng/ml Nasal Screen MRSA (PCR) (Negative) 03/14/22 Range/Units 11:50 WBC (4.8-10.8) K/ul RBC (4.63-6.08) M/uL Hgb (14.0-18.0) g/dl Hct (40.1-51.0) % MCV (80.0-100.0) fL MCH (25.0-34.0) pg MCHC (32.0-36.0) g/dL RDW Std Deviation (36.4-46.3) fL RDW Coeff of Ever (11.5-14.5) % Plt Count (130-400) K/uL MPV (9.4-12.4) fL ESR 44 H (0-20) mm/hr PT (9.0-12.0) Seconds INR (0.9-1.1) Sodium (136-145) mmol/L Potassium (3.5-5.1) mmol/L Chloride (98-107) mmol/L Carbon Dioxide (21-32) mmol/L Anion Gap (3-11) BUN (6-23) mg/dl Creatinine (0.6-1.4) mg/dl Est Cr Clr Drug Dosing ml/min Est GFR ( Amer) ml/min Est GFR (Non-Af Amer) ml/min BUN/Creatinine Ratio (10-20) Glucose (70-99(Fasting)) mg/dl POC Glucose (70-99) mg/dl Calcium (8.5-10.1) mg/dl Iron (35-175) mcg/dl TIBC (250-450) mcg/dl Unsaturated IBC (155-355) mcg/dl Transferrin % Sat (20-50) % Ferritin (8-388) ng/ml Total Bilirubin (0.2-1.0) mg/dl AST (13-39) U/L ALT (7-52) U/L Alkaline Phosphatase (34-104) U/L C-Reactive Protein (0-0.5) mg/dl Total Protein (6.0-8.3) gm/dl Albumin (3.4-5.0) gm/dl Globulin (2.5-4.0) gm/dl Albumin/Globulin Ratio (0.9-2) Vitamin B12 (180-914) pg/ml Folate (>5.38) ng/ml Procalcitonin (0-0.5) ng/ml Nasal Screen MRSA (PCR) (Negative) Diagnostic Findings Foot X-Ray 03/14/22 11:34 XR foot LT min 3V routine HISTORY: 56 years-old Male Lftpain;hxcharcotft chronicwoundonLfoot acute pain and swelling of the left foot COMPARISON: Left ankle CT 02/26/2022, 02/08/2022 and 03/20/2019 radiographs TECHNIQUE: 3 views of the left foot FINDINGS: Marked irregularity of the tibiotalar and subtalar joints redemonstrated with chronic collapse of the midfoot. Charcot neuropathy of the midfoot and hindfoot. Chronic postoperative changes with plate and screw fusion of the medial midfoot with large staple-like fixation devices within the tarsometatarsal joints. Lucency surrounding the distal aspect of the plate and screw hardware within the first metatarsal suggestive of loosening. The lateral most staple/fixation device is fractured. Prior resection of the distal fibula. Large cannulated screw of the distal tibia and talus. Evidence of prior hardware removal of the distal tibia. No acute fracture or dislocation. Extensive soft tissue swelling with minimal soft tissue gas within the lateral ankle. Arterial calcifications. IMPRESSION: 1. Soft tissue swelling with focus of gas within the lateral ankle. Findings may be secondary to gas-forming organism. 2. No acute fracture or dislocation identified. 3. Charcot neuropathy with chronic degenerative and postoperative changes as above. Superimposed osteomyelitis would be impossible to exclude however is considered less likely. 4. Evidence of hardware fracture and loosening as above. ACT 112: Negative or not required by law. The above report was generated using voice recognition software. It may contain grammatical, syntax or spelling errors. Electronically signed by: Todd Giang M.D. 03/14/2022 12:13 PM PG Care Time/CCT Total # of Minutes Spent Total Time Spent with Patient: Total time spent is greater than 50% in coordination of care (as documented) at patient's floor/unit and/or counseling patient: Coding Level of Care Code 42221 Subseq Hosp Care Lvl 3 Diagnoses Left foot infection L08.9 Open wound of ankle S91.009A Hardware complicating wound infection T84.7XXA Charcot foot due to diabetes mellitus E11.610 CAD (coronary artery disease) I25.10 Diabetic peripheral neuropathy associated with type 2 diabetes mellitus E11.42 Chronic kidney disease, stage 3 (moderate) N18.3 Dyslipidemia E78.5 OLGA (acute kidney injury) N17.9 Hypertension I10 Hypothyroidism E03.9 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
[2022-03-15] MEDS: DAPTOmycin 550 MG in SYRINGE 0 ML IV SCH (09:01)
[2022-03-15] MEDS: allopurinoL 300 MG TAB PO SCH (09:06)
[2022-03-15] MEDS: CALCITRIOL 0.25 MCG CAPSULE PO SCH (09:06)
[2022-03-15] MEDS: ASPIRIN 81 MG ECTAB PO SCH (09:06)
[2022-03-15] MEDS: CLOPIDOGREL BISULFATE 75 MG TAB PO SCH (09:06)
[2022-03-15] MEDS: HEPARIN SOD 5,000 UNIT/0.5 ML VIAL SQ SCH ×2 (09:06→21:41)
[2022-03-15] MEDS: MoRPHine SULFATE 2 MG/ML CARP IV PRN ×3 (09:46→19:05)
[2022-03-15 10:05] LABS: Ferritin 190.6 ng/ml (8-388)
[2022-03-15 10:15] LABS: Folate (Folic Acid) 17.64 ng/ml (>5.38)
[2022-03-15] MEDS ORDERED: Nursing to Pharmacy Communication SCH (10:15)
--- NOTE | 2022-03-15 10:18 | Electrocardiogram Report ---
Test Reason : Blood Pressure : / mmHG Vent. Rate : 084 BPM Atrial Rate : 084 BPM P-R Int : 150 ms QRS Dur : 084 ms QT Int : 344 ms P-R-T Axes : 032 -01 113 degrees QTc Int : 406 ms Poor data quality, interpretation may be adversely affected Normal sinus rhythm Left ventricular hypertrophy with repolarization abnormality Abnormal ECG When compared with ECG of 17-NOV-2017 13:15, Vent. rate has increased BY 34 BPM T wave inversion now evident in Lateral leads Confirmed by Tuan Bentley ([id number]) on 03/15/2022 10:17:47 AM Referred By: REFERRED SELF Confirmed By:Tuan Bentley
[2022-03-15] MEDS ORDERED: CYANOCOBALAMIN 1000 MCG/ML VIAL IM SCH (10:45)
[2022-03-15] MEDS: ONDANSETRON INJ 2 MG/ML 2 ML VIAL IV PRN ×2 (12:35→17:39)
[2022-03-15] MEDS: INSULIN ASPART PER UNIT SC SCH ×3 (12:52→21:41)
[2022-03-15] MEDS ORDERED: IRON SUCROSE 200 MG in 0.9 % SODIUM CHLORIDE 100 ML IV ONE (13:00)
[2022-03-15] MEDS ORDERED: SODIUM CHLORIDE 0.9% 500 ML IV SCH (15:30)
--- NOTE | 2022-03-15 16:15 | Magnetic Resonance Report ---
MR foot LT w/o con CLINICAL HISTORY: r/o osteo and abscess, lateral ankle swelling TECHNIQUE: Multisequence, multiplanar MR images of the left foot were obtained without contrast COMPARISON: Comparison is made to left foot radiographs 03/14/[address] ankle 02/26/2022 FINDINGS: Exam is limited by susceptibility artifact from fixation hardware. Fixation hardware seen about the m idfoot and transfixing the tibiotalar joint. Degenerative changes are seen but there is no evidence o f bony edema to suggest osteomyelitis. No drainable fluid collection is seen. The soft tissues appear edematous. IMPRESSION: No evidence of osteomyelitis or drainable abscess in the foot. Please see MRI ankle for findings in t he ankle. ACT 112: Negative or not required by law. Electronically signed by: Simon Melendez M.D. 03/15/2022 4:13 PM
--- NOTE | 2022-03-15 17:40 | Magnetic Resonance Report ---
MR ankle LT wo con CLINICAL HISTORY: eval abscess/fluid collection, osteo TECHNIQUE: Multisequence, multiplanar MR images of the left ankle were obtained without contrast.. COMPARISON: Comparison is made to CT ankle 826 2 FINDINGS: Extensive postoperative and degenerative changes are seen most prominent at the tibiotalar and subtal ar joints, compatible with chronic neuropathic change. There is chronic collapse and resorption of th e majority of the talus. The tendons appear intact. Surgical hardware is noted. There is no evidence of bone marrow edema to suggest osteomyelitis. There is extensive soft tissue swelling without eviden ce of drainable fluid collection. There is a small joint effusion. IMPRESSION: Extensive degenerative changes which may be related to neuropathic disease. No evidence of osteomyeli tis or abscess. Extensive soft tissue swelling may represent cellulitis. ACT 112: Negative or not required by law. Electronically signed by: Simon Melendez M.D. 03/15/2022 5:39 PM
--- NOTE | 2022-03-15 18:13 | Orthopedic Progress Note ---
Date of Service March 15, 2022 Assessment & Plan (1) Open wound of ankle: He is basically dealing with an open pressure ulcer on his left foot from his [place] walker boot. He should remain nonweightbearing. He has already discussed the procedure to take care of the ulceration and remove some bone around the Charcot foot with his foot and ankle surgeon at [place]. A date for the surgery has not been set up yet. At this point I do not see any immediate surgical indications. He should follow-up with his foot and ankle surgeon at [facility]. Case management may want to call his foot and ankle surgeon to make sure that he gets this treated in the appropriate timeframe. I do not think he needs transferred to [facility] from [facility]. He is orthopedically stable for discharge when medically ready. If he have any further questions please feel free to contact me. Bryson Bautista was seen and examined at bedside this morning. Overall he is doing okay. He still having some pain in the foot but is not too bad. He had an MRI of his foot and his ankle earlier today.. Review of Systems All systems reviewed & are unremarkable except as noted in HPI & below. Physical Exam Physical examination of his left foot is unchanged. Is a small ulceration on the lateral aspect of his foot. There is no cellulitis. There is no draining pus or signs of gross infection. He does have deformity of his left foot from Charcot foot.. Results & Data Results & Data Laboratory Results . Diagnostic Findings MRI of the left foot and ankle does not show any signs of osteomyelitis or abscess. There is signs of Charcot foot and possibly some cellulitis.. PG Care Time/CCT Total # of Minutes Spent Total Time Spent with Patient: Total time spent is greater than 50% in coordination of care (as documented) at patient's floor/unit and/or counseling patient: Coding Level of Care Code 58780 Subseq Hosp Care Lvl 3 Diagnoses Open wound of ankle S91.009A
[2022-03-16] MEDS: PIPERACILLIN/TAZOBACTAM 3.375 GM in DEXTROSE 5% 100 ML IV SCH ×3 (01:53→18:23)
[2022-03-16] MEDS: LEVOTHYROXINE SODIUM 112 MCG TABLET PO SCH (05:58)
[2022-03-16 06:16] LABS: Hematocrit (blood only) 31.9 % (40.1-51.0); Hemoglobin 10.5 g/dl (14.0-18.0); Mean Corpuscular Hemoglobin 29.1 pg (25.0-34.0); Mean Corpuscular Hgb Conc 32.9 g/dL (32.0-36.0); Mean Corpuscular Volume 88.4 fL (80.0-100.0); Mean Platelet Volume 11.1 fL (9.4-12.4); Platelet Count 110 K/uL (130-400); RDW Coefficient of Variation 14.5 % (11.5-14.5); RDW Standard Deviation 46.8 fL (36.4-46.3); Red Blood Count 3.61 M/uL (4.63-6.08); White Blood Count 6.12 K/ul (4.8-10.8)
[2022-03-16 06:50] LABS: Albumin Globulin Ratio 1.1 (0.9-2); Albumin Level 3.3 gm/dl (3.4-5.0); BUN Creatinine Ratio 12.8 (10-20); Calcium 9.7 mg/dl (8.5-10.1); Creatinine Clr Calc Pharmacy 39.8 ml/min; Est GFR (African American) 30.2 ml/min; Magnesium 1.8 mg/dl (1.7-2.4); Potassium 4.2 mmol/L (3.5-5.1); Total Protein 6.3 gm/dl (6.0-8.3)
[2022-03-16] MEDS: carvediloL 12.5 MG TAB PO SCH (08:40)
[2022-03-16] MEDS: allopurinoL 300 MG TAB PO SCH (08:40)
[2022-03-16] MEDS: CALCITRIOL 0.25 MCG CAPSULE PO SCH (08:40)
[2022-03-16] MEDS: ASPIRIN 81 MG ECTAB PO SCH (08:40)
[2022-03-16] MEDS: CLOPIDOGREL BISULFATE 75 MG TAB PO SCH (08:40)
[2022-03-16] MEDS: INSULIN ASPART PER UNIT SC SCH ×4 (08:46→21:32)
[2022-03-16] MEDS: DAPTOmycin 550 MG in SYRINGE 0 ML IV SCH (08:47)
[2022-03-16] MEDS: HEPARIN SOD 5,000 UNIT/0.5 ML VIAL SQ SCH ×2 (08:47→21:25)
--- NOTE | 2022-03-16 08:47 | Hospitalist Progress Note ---
Date of Service March 16, 2022 Assessment & Plan (1) Left foot infection: Plan: Long surgical hx followed by [facility] *Of note, took 20 days to complete 10 days doxy as "bad at remembering to take medications" suspect noncompliance issues baseline Xray with Soft tissue swelling with focus of gas within the lateral ankle. Findings may be secondary to gas-forming organism. Ortho consulted -- NWB to LLE. --Walker rx provided per PT/OT notes (ok for home) --rec f/u [facility] --appt made for , patient/ stating as not for ssurgery long drive --asked to send imaging to [facility], called radiology and had prior CT and recent MRI pushed Awaiting call back from [facility] provider to patient about just scheduling the surgery for f/u. consider doxy PO at d/c given prior +staph however was surface culture consider clinda for better coverage anearobic Attempt cx lateral ankle drainage Continue broad spectrum abx with Dapto/ZOsyn Blood cultures pending -- NGTD 48 hours Did have improvement in swelling/edema/pain reported, however inflammatory markers rechecked and further elevated, initially concerning for osteo * ESR 44--> 64 * CRP 10.95 --> 23.0 * Procal 1.94--> 3.86 MRI obtained 03/15, no evidence for abscess Does have hx gout, increased flare ups. Will check uric acid level Given elevation in Cr (baseline closer to 2) decision to keep inpatient, will consult nephro given Cr 2.66 Continue to monitor labs in AM (2) Open wound of ankle: Plan: -Followed outpatient by [facility] -Had been on Doxycycline per wound care but did not complete the course as prescribed -- took 20 days to complete 10 day course -See left foot infection for plan wound rn consulted, see imaging (3) Hardware complicating wound infection: Plan: -See left foot infection (4) Charcot foot due to diabetes mellitus: Plan: -See left foot infection (5) CAD (coronary artery disease): Plan: ICM w/ LVEF 45% s/p stenting x3 -[employer]ING [employer] aspirin and plavix, carvedilol BID, crestor No CP reported (6) Diabetic peripheral neuropathy associated with type 2 diabetes mellitus: Plan: A1c 7.6 holding home meds, ordered glargine 18u BID, ISS while inpatient Monitor BSGs Check B12 --> 187. IM while inpatient, continue PO at discharge Mag wnl on AM labs (7) Chronic kidney disease, stage 3 (moderate): Plan: Cr at 2.53 on admit, baseline appears to be around 2.0 No issues w/ obstruction/dysuria reported Given 1.5L thus far, did get CT end of month with contrast Cr 2.66 this morning BUN 34 Decreased edema to LE, breathing stable, however BNP checked and mild elevation Hold off on diuretics given Cr, consult nephrology -- appreciate recs Checking uric acid given recurrent flares Follow renal function (8) Dyslipidemia: Plan: -[employer] statin on hold while on Dapto (9) OLGA (acute kidney injury): Plan: -See CKD, IVF ordered suspect recent OLGA from contrast in patient with baseline Cr 2 and got contrast 02/26/22 (10) Hypertension: Plan: -Continue [employer] carvedilol Given dose of losartan AM 03/16 but placed on hold given rise in Cr to 2.6 as above BP 124/77 Monitor (11) Hypothyroidism: Plan: TSH 1.12 this summer, continue Synthroid 112mcg daily (12) 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, with long-term current use of insulin: Plan: -Start with 18 units Glargine BID -Correction factor of 20, Carb ration of 7 -Consistent carb diet monitor BSGs B12 borderline low 187 --> IM replacement ordered while inpatient, continue PO at d/c (13) Gangrene of foot: (14) Anemia: Plan: multifactorial hgb in 10.5 ckd, vit d deficiency MCV normocytic, B12 low as checked for neuropathy and was low ,replacement order folate wnl checked iron studies iron low 16, trans % sat 9% --> ordered Venofer 200mg 2nd dose today Monitor CBC (15) B12 deficiency: Plan: 187 on check IM ordered while inpatient, rec to continue PO at discharge Plan continued inpatient stay on abx monitor inflammatory markers, uric acid level nephrology consulted given OLGA on CKD PT/OT rec return home attempting to arrange close f/u [facility] at discharge . imaging sent. patient awaiting return call Admission and Anticipated Discharge Date Admission Date: March 14, 2022 Subjective eval this morning, feeling improved pain improved, swelling improved less duskiness to foot, less warmth got appointment on morning, discussed keeping overnight tonight and d/c in AM tomorrow with close follow up. and patient note that is a long drive for just appointment as not the actual surgery. Call while in room, his orthopedic surgeon did not get prior CT results. Calling radiology to have CT and recent MRIs sent Also checking inflammatory markers and discussed elevated Cr and would like to monitor overnight tonight. Review of Systems Review of Systems: All systems reviewed & are unremarkable except as noted in HPI & below Physical Exam Physical Exam: General: WD/obese male, chronically ill appearing, no acute distress, at bedside HEENT: head normocephalic, atraumatic, mmm, trachea midline without deviation RespL CTAB, no w/c/r, on room air CV: RRR, +systolic murmur, no pitting edema to calves/calf tenderness GI: +BS, nontender no russell MSK/Neuro: moves all extremities charcot foot to the left, prior surgical scars well healed warmth, edema to medial forefoot and lateral hindfoot (lateral malleolus, chronic reported) IMPROVED, less tender to palpation, scant purulent drainage on dressing, none expressed reduced ROM due to pain/swelling no focal deficit, no slurred speech/facial droop, follows commands +neuropathy to light touch Skin: see above, otherwise, warm dry Results & Data Results & Data ([facility]) Vital Signs (Past 12 Hours) Vital Signs Temp Pulse Resp BP Pulse Ox O2 Del Method 03/16/22 07:32 36.5 C 65 16 105/61 95 03/15/22 22:12 36.9 C 68 14 107/57 L 95 Room Air Laboratory Results 03/16/22 03/16/22 03/16/22 Range/Units 11:06 11:06 11:06 WBC (4.8-10.8) K/ul RBC (4.63-6.08) M/uL Hgb (14.0-18.0) g/dl Hct (40.1-51.0) % MCV (80.0-100.0) fL MCH (25.0-34.0) pg MCHC (32.0-36.0) g/dL RDW Std Deviation (36.4-46.3) fL RDW Coeff of Ever (11.5-14.5) % Plt Count (130-400) K/uL MPV (9.4-12.4) fL ESR 64 H (0-20) mm/hr Sodium (136-145) mmol/L Potassium (3.5-5.1) mmol/L Chloride (98-107) mmol/L Carbon Dioxide (21-32) mmol/L Anion Gap (3-11) BUN (6-23) mg/dl Creatinine (0.6-1.4) mg/dl Est Cr Clr Drug Dosing ml/min Est GFR ( Amer) ml/min Est GFR (Non-Af Amer) ml/min BUN/Creatinine Ratio (10-20) Glucose (70-99(Fasting)) mg/dl POC Glucose (70-99) mg/dl Calcium (8.5-10.1) mg/dl Magnesium (1.7-2.4) mg/dl Total Bilirubin (0.2-1.0) mg/dl AST (13-39) U/L ALT (7-52) U/L Alkaline Phosphatase (34-104) U/L C-Reactive Protein Pending Total Protein (6.0-8.3) gm/dl Albumin (3.4-5.0) gm/dl Globulin (2.5-4.0) gm/dl Albumin/Globulin Ratio (0.9-2) Procalcitonin Pending 03/16/22 03/16/22 03/16/22 Range/Units 08:07 05:20 05:20 WBC 6.12 (4.8-10.8) K/ul RBC 3.61 L (4.63-6.08) M/uL Hgb 10.5 L (14.0-18.0) g/dl Hct 31.9 L (40.1-51.0) % MCV 88.4 (80.0-100.0) fL MCH 29.1 (25.0-34.0) pg MCHC 32.9 (32.0-36.0) g/dL RDW Std Deviation 46.8 H (36.4-46.3) fL RDW Coeff of Ever 14.5 (11.5-14.5) % Plt Count 110 L (130-400) K/uL MPV 11.1 (9.4-12.4) fL ESR (0-20) mm/hr Sodium 135 L (136-145) mmol/L Potassium 4.2 (3.5-5.1) mmol/L Chloride 104 (98-107) mmol/L Carbon Dioxide 25 (21-32) mmol/L Anion Gap 6 (3-11) BUN 34 H (6-23) mg/dl Creatinine 2.66 H (0.6-1.4) mg/dl Est Cr Clr Drug Dosing 39.8 ml/min Est GFR ( Amer) 30.2 ml/min Est GFR (Non-Af Amer) 26.0 ml/min BUN/Creatinine Ratio 12.8 (10-20) Glucose 124 H (70-99(Fasting)) mg/dl POC Glucose 117 H (70-99) mg/dl Calcium 9.7 (8.5-10.1) mg/dl Magnesium 1.8 (1.7-2.4) mg/dl Total Bilirubin 1.0 D (0.2-1.0) mg/dl AST 13 (13-39) U/L ALT 12 (7-52) U/L Alkaline Phosphatase 78 (34-104) U/L C-Reactive Protein Total Protein 6.3 (6.0-8.3) gm/dl Albumin 3.3 L (3.4-5.0) gm/dl Globulin 3.0 (2.5-4.0) gm/dl Albumin/Globulin Ratio 1.1 (0.9-2) Procalcitonin 03/15/22 03/15/22 03/15/22 Range/Units 20:28 17:01 11:57 WBC (4.8-10.8) K/ul RBC (4.63-6.08) M/uL Hgb (14.0-18.0) g/dl Hct (40.1-51.0) % MCV (80.0-100.0) fL MCH (25.0-34.0) pg MCHC (32.0-36.0) g/dL RDW Std Deviation (36.4-46.3) fL RDW Coeff of Ever (11.5-14.5) % Plt Count (130-400) K/uL MPV (9.4-12.4) fL ESR (0-20) mm/hr Sodium (136-145) mmol/L Potassium (3.5-5.1) mmol/L Chloride (98-107) mmol/L Carbon Dioxide (21-32) mmol/L Anion Gap (3-11) BUN (6-23) mg/dl Creatinine (0.6-1.4) mg/dl Est Cr Clr Drug Dosing ml/min Est GFR ( Amer) ml/min Est GFR (Non-Af Amer) ml/min BUN/Creatinine Ratio (10-20) Glucose (70-99(Fasting)) mg/dl POC Glucose 155 H 124 H 148 H (70-99) mg/dl Calcium (8.5-10.1) mg/dl Magnesium (1.7-2.4) mg/dl Total Bilirubin (0.2-1.0) mg/dl AST (13-39) U/L ALT (7-52) U/L Alkaline Phosphatase (34-104) U/L C-Reactive Protein Total Protein (6.0-8.3) gm/dl Albumin (3.4-5.0) gm/dl Globulin (2.5-4.0) gm/dl Albumin/Globulin Ratio (0.9-2) Procalcitonin 03/15/22 Range/Units 05:51 WBC (4.8-10.8) K/ul RBC (4.63-6.08) M/uL Hgb (14.0-18.0) g/dl Hct (40.1-51.0) % MCV (80.0-100.0) fL MCH (25.0-34.0) pg MCHC (32.0-36.0) g/dL RDW Std Deviation (36.4-46.3) fL RDW Coeff of Ever (11.5-14.5) % Plt Count (130-400) K/uL MPV (9.4-12.4) fL ESR (0-20) mm/hr Sodium (136-145) mmol/L Potassium (3.5-5.1) mmol/L Chloride (98-107) mmol/L Carbon Dioxide (21-32) mmol/L Anion Gap (3-11) BUN (6-23) mg/dl Creatinine (0.6-1.4) mg/dl Est Cr Clr Drug Dosing ml/min Est GFR ( Amer) ml/min Est GFR (Non-Af Amer) ml/min BUN/Creatinine Ratio (10-20) Glucose (70-99(Fasting)) mg/dl POC Glucose (70-99) mg/dl Calcium (8.5-10.1) mg/dl Magnesium 1.6 L (1.7-2.4) mg/dl Total Bilirubin (0.2-1.0) mg/dl AST (13-39) U/L ALT (7-52) U/L Alkaline Phosphatase (34-104) U/L C-Reactive Protein Total Protein (6.0-8.3) gm/dl Albumin (3.4-5.0) gm/dl Globulin (2.5-4.0) gm/dl Albumin/Globulin Ratio (0.9-2) Procalcitonin Diagnostic Findings Foot MRI 03/15/22 14:32 MR foot LT w/o con CLINICAL HISTORY: r/o osteo and abscess, lateral ankle swelling TECHNIQUE: Multisequence, multiplanar MR images of the left foot were obtained without contrast COMPARISON: Comparison is made to left foot radiographs 03/14/[address] ankle 02/26/2022 FINDINGS: Exam is limited by susceptibility artifact from fixation hardware. Fixation hardware seen about the midfoot and transfixing the tibiotalar joint. Degenerative changes are seen but there is no evidence of bony edema to suggest osteomyelitis. No drainable fluid collection is seen. The soft tissues appear edematous. IMPRESSION: No evidence of osteomyelitis or drainable abscess in the foot. Please see MRI ankle for findings in the ankle. ACT 112: Negative or not required by law. Electronically signed by: Simon Melendez M.D. 03/15/2022 4:13 PM Ankle MRI 03/15/22 15:17 MR ankle LT wo con CLINICAL HISTORY: eval abscess/fluid collection, osteo TECHNIQUE: Multisequence, multiplanar MR images of the left ankle were obtained without contrast.. COMPARISON: Comparison is made to CT ankle 826 2 FINDINGS: Extensive postoperative and degenerative changes are seen most prominent at the tibiotalar and subtalar joints, compatible with chronic neuropathic change. There is chronic collapse and resorption of the majority of the talus. The tendons appear intact. Surgical hardware is noted. There is no evidence of bone marrow edema to suggest osteomyelitis. There is extensive soft tissue swelling without evidence of drainable fluid collection. There is a small joint effusion. IMPRESSION: Extensive degenerative changes which may be related to neuropathic disease. No evidence of osteomyelitis or abscess. Extensive soft tissue swelling may represent cellulitis. ACT 112: Negative or not required by law. Electronically signed by: Simon Melendez M.D. 03/15/2022 5:39 PM PG Care Time/CCT Total # of Minutes Spent Total Time Spent with Patient: Total time spent is greater than 50% in coordination of care (as documented) at patient's floor/unit and/or counseling patient: Coding Level of Care Code 20916 Subseq Hosp Care Lvl 3 Diagnoses Left foot infection L08.9 Open wound of ankle S91.009A Hardware complicating wound infection T84.7XXA Charcot foot due to diabetes mellitus E11.610 CAD (coronary artery disease) I25.10 Diabetic peripheral neuropathy associated with type 2 diabetes mellitus E11.42 Chronic kidney disease, stage 3 (moderate) N18.3 Dyslipidemia E78.5 OLGA (acute kidney injury) N17.9 Hypertension I10 Hypothyroidism E03.9 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
[2022-03-16] MEDS ORDERED: CYANOCOBALAMIN 1000 MCG/ML VIAL IM SCH (09:00)
[2022-03-16] MEDS ORDERED: LOSARTAN POTASSIUM 25 MG TAB PO SCH (09:00)
[2022-03-16] MEDS: LANTUS PER UNIT CHARGE SQ SCH ×2 (09:07→21:31)
[2022-03-16] MEDS ORDERED: IRON SUCROSE 200 MG in 0.9 % SODIUM CHLORIDE 100 ML IV ONE (12:00)
[2022-03-16] MEDS: ACETAMINOPHEN 325 MG TAB PO PRN (16:12)
--- NOTE | 2022-03-16 16:19 | Nephrology Consultation ---
Date of Consultation March 16, 2022 Assessment & Plan (1) OLGA (acute kidney injury): * OLGA likely related to active infection in the setting of ARB therapy * Agree w/ holding Losartan and providing gentle hydration * Will order urinalysis w/ microscopy and UPCR * If renal function worsens, will order renal US * Monitor PRP (2) Chronic kidney disease, stage 3 (moderate): * CKD stage G3b/A3 (moderate impairment). Baseline Cr 2.0 w/ EGFR 39 cc/minute. Urine sediment has been acellular. UPCR 2.0. Renal US revealed 9.5 cm kidneys without obstruction. Renal impairment is due to DKD and hypertensive nephrosclerosis (3) Left foot infection: * Agree w/ broad spectrum antibiotics. Pharmacy is dose adjusting for renal insufficiency History of Present Illness Reason for Consultation: OLGA/CKD Attending Physician: Kannan Simmons History of Present Illness Mr. Aeyrs is a 56 year old white male who is seen at the request of Xochitl Willis PA-c for evaluation of OLGA/CKD. Medical records in the EMR were reviewed today and are summarized as folllows: Mr. Ayers has CKD stage G3b/A3 (moderate impairment). Baseline Cr 2.0 w/ EGFR 39 cc/minute. Urine sediment has been acellular. UPCR 2.0. Renal US revealed 9.5 cm kidneys without obstruction. Renal impairment is due to DKD and hypertensive nephrosclerosis. His medical history is also significant for IDDM (complicated by retinopathy, peripheral neuropathy, and nephropathy), hypercholesterolemia, ICM w/ LVEF 45% s/p stenting x3, BMI 30, gout, OA L knee, Charcot injury to L foot. Mr. Ayers was admitted to [facility] 03/14/22 with an open pressure ulcer on his L foot from his [place] walker boot. He was evaluated by Orthopedic Surgery who recommended antibiotic therapy and [place]/ [place] [facility] [place] Creatinine has been 2.5 - 2.6 since admission. Mr. Ayers is receiving IV Zosyn and Daptomycin. He currently denies flank pain, gross hematuria or foamy urine. Primary service has held ARB therapy and started gentle hydration. Allergies Allergy/AdvReac Type Severity Reaction Status Date / Time lisinopril AdvReac Unknown cough Verified 03/14/22 16:38 Home Medications Medication Instructions Recorded Confirmed Type Accu-Chek Guide test strips (blood #400 ea 08/22/19 03/01/22 Rx sugar diagnostic) indomethacin 50 mg capsule 50 mg PO TID PRN gout #15 caps 11/11/20 03/14/22 Rx sildenafil 50 mg tablet See Rx Instructions PO DAILY PRN 11/11/20 03/14/22 Rx sexual activity #30 tabs blood-glucose meter,continuous #1 ea 04/06/21 03/01/22 Rx (Dexcom G6 Fulfillment Coordinator misc) rosuvastatin 40 mg tablet 40 mg PO QAM #90 tabs 04/27/21 03/14/22 Rx fenofibrate nanocrystallized 48 mg 48 mg PO QAM #90 tabs 05/22/21 03/14/22 Rx tablet blood-glucose sensor (Dexcom G6 #3 ea 07/17/21 03/01/22 Rx Sensor device) pen needle, diabetic 32 gauge x #100 ea 09/07/21 03/01/22 Rx 5/32" (BD Ultra-Fine Francie Pen Needle) Dexcom G6 Transmitter #1 ea 10/02/21 03/01/22 Rx (blood-glucose transmitter) levothyroxine 112 mcg tablet 112 mcg PO QAM #30 tabs 10/21/21 03/14/22 Rx (Euthyrox) Novolog U-100 Insulin aspart 100 120 unit (1.2 mL) .Route DAILY 30 11/19/21 03/14/22 Rx unit/mL subcutaneous solution days #40 mL (insulin aspart U-100) losartan 25 mg tablet 25 mg PO DAILY #30 tabs 12/02/21 03/14/22 Rx nitroglycerin 0.4 mg sublingual 0.4 mg sublingual Q5M PRN chest 12/03/21 03/14/22 Rx tablet pain #25 tabs calcitriol 0.5 mcg capsule 0.5 mcg PO DAILY 12/21/21 03/14/22 History clopidogrel 75 mg tablet 75 mg PO QAM #90 tabs 12/28/21 03/14/22 Rx insulin glargine 100 unit/mL (3 75 unit subcut QAM 01/07/22 03/14/22 History mL) subcutaneous pen (Basaglar KwikPen U-100 Insulin) insulin syringe,safetyneedle 1 mL 01/07/22 03/01/22 History 31 gauge x 15/64" (Assure ID Insulin Safety) allopurinol 300 mg tablet 300 mg PO DAILY #90 tabs 02/02/22 03/14/22 Rx carvedilol 12.5 mg tablet 12.5 mg PO DAILY #90 tabs 02/02/22 03/14/22 Rx doxycycline hyclate 100 mg tablet 100 mg PO bid 02/15/22 03/14/22 History aspirin 81 mg tablet,delayed 81 mg PO QAM 03/14/22 03/14/22 History release Patient History Medical History Bulging disc CAD (coronary artery disease) Follows with Dr. Pringle Cardiac murmur Cataract Chronic kidney disease (CKD) follows with Dr. Lewis Diabetes mellitus with diabetic polyneuropathy IDDM type 2 Dyslipidemia Gout History of colon polyps History of kidney stones History of myocardial infarction 2010 Hypertension Hypothyroidism Obesity (BMI 30.0-34.9) Osteoarthritis Proliferative diabetic retinopathy Surgical History H/O heart artery stent x7 History of ankle surgery Left - January 2017 History of bursectomy Left elbow History of cardiac cath 2016 - [place] - 3 stents 2010 - [facility] - 4 stents History of colonoscopy History of cystoscopy with stone extraction History of foot surgery Left - September 2017 S/P excisional debridement RLE Family History Father Diabetes Coronary heart disease Unknown Heart disease History of nephrolithiasis Hypertension Mother No problems noted. Other Nephrolithiasis No family history of adverse response to anesthesia Denies family history of Ovarian cancer Prostate cancer Chronic kidney disease (CKD) Breast cancer Colorectal cancer Social History Smoking Status: Never smoker Second Hand Exposure: Yes (hx); Do You Dip or Chew Tobacco: No; Hx Alcohol Use: No Hx Substance Use: No Preferred Language: Divehi Communication Ability: Effective Visual Impairment: Limited Hearing Ability: Hard of Hearing Sign Board Erector Required: No Beliefs That Will Affect Care: None marital status: Current Living Situation: Family current occupational status: 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 [employer] Other Information That Helps Us Care for You: No Feels Safe at Home: Yes Safety Concerns: Feels Safe At This Time Childhood Exposure to Second-Hand Smoke: Yes caffeine: Yes during the past year weight has: remained stable Dental Care, Regularly: Yes Physical Activity Frequency: Does not Exercise Seatbelt Use: always Sunscreen Use: No Assistive Devices: None Review of Systems Constitutional: no fever Eyes: no problem reported Ear, Nose, Mouth, Throat: no problem reported Respiratory: no cough and no dyspnea Cardiovascular: no chest pain and no palpitations Gastrointestinal: no abdominal pain and no diarrhea/loose stools Genitourinary: no dysuria or no urinary hesitancy Physical Exam Constitutional: not in distress Eyes: PERRL, conjunctivae normal, anicteric sclerae ENMT: external ear and nose normal, oropharynx normal Neck: trachea midline, no thyromegaly Respiratory: normal respiratory effort, lungs clear to auscultation Cardiovascular: Rate/Rhythm: regular rate and regular rhythm Gastrointestinal (Abdomen): normal bowel sounds, soft, nontender, no hepatosplenomegaly Musculoskeletal: L foot currently wrapped Neurologic: nonfocal Results & Data ([facility]) Vital Signs (Past 12 Hours) Vital Signs Temp Pulse Resp BP BP Pulse Ox O2 Del Method 03/16/22 16:05 37.6 C H 59 L 16 124/77 96 Room Air 03/16/22 15:51 37.2 C 59 L 18 123/24 L 97 Room Air 03/16/22 14:40 37.4 C 63 18 136/80 99 Room Air 03/16/22 10:54 62 14 120/65 03/16/22 07:32 36.5 C 65 16 105/61 95 Laboratory Results Laboratory Tests 03/14/22 03/16/22 03/16/22 11:50 05:20 05:20 WBC 6.12 Hgb 10.5 L Hct 31.9 L Plt Count 110 L Sodium 135 L Potassium 4.2 Chloride 104 Carbon Dioxide 25 BUN 34 H Creatinine 2.66 H Glucose 124 H Calcium 9.7 Magnesium 1.8 Albumin 3.3 L Procalcitonin SARS-CoV-2 (PCR) NEGATIVE Influenza Type A (PCR) Negative Influenza Type B (PCR) Negative RSV (RT-PCR) Negative 03/16/22 11:06 WBC Hgb Hct Plt Count Sodium Potassium Chloride Carbon Dioxide BUN Creatinine Glucose Calcium Magnesium Albumin Procalcitonin 3.86 H SARS-CoV-2 (PCR) Influenza Type A (PCR) Influenza Type B (PCR) RSV (RT-PCR) PG Care Time/CCT Total # of Minutes Spent Total Time Spent with Patient: Total time spent is greater than 50% in coordination of care (as documented) at patient's floor/unit and/or counseling patient: Coding Level of Care Code 20214 Inpt Consult Level 5 Diagnoses OLGA (acute kidney injury) N17.9 Chronic kidney disease, stage 3 (moderate) N18.3 Left foot infection L08.9
[2022-03-16] MEDS ORDERED: SODIUM CHLORIDE 0.9% 1000ML 1,000 ML IV SCH (17:15)
[2022-03-16 17:19] LABS: Uric Acid 5.4 mg/dl (2.6-7.2)
[2022-03-16 17:54] LABS: Appearance Urine Clear (Clear); Bacteria Urine Automated Negative (Negative); Bilirubin Urine Negative (Negative); Blood Urine 1+ (Negative); Color Urine Yellow; Glucose Urine UA Negative (Negative); Ketones Urine Negative (Negative); Leukocyte Esterase Urine Negative (Negative); Nitrite Urine Negative (Negative); Protein Urine 1+ (Negative); RBC Urine Automated >30 /hpf (0-4); Specific Gravity Urine 1.014 (1.000-1.030); Urobilinogen Urine Negative (Negative)
[2022-03-16 18:20] LABS: Creatinine Urine Random 71.5 mg/dl; Total Protein Urine Random 72.3 mg/dl (0-11.9)
[2022-03-17] MEDS: PIPERACILLIN/TAZOBACTAM 3.375 GM in DEXTROSE 5% 100 ML IV SCH ×3 (02:33→18:05)
[2022-03-17] MEDS: MoRPHine SULFATE 2 MG/ML CARP IV PRN (02:56)
[2022-03-17] MEDS: LEVOTHYROXINE SODIUM 112 MCG TABLET PO SCH (06:08)
[2022-03-17] MEDS: carvediloL 12.5 MG TAB PO SCH (07:27)
[2022-03-17 08:18] LABS: Hematocrit (blood only) 32.7 % (40.1-51.0); Hemoglobin 10.5 g/dl (14.0-18.0); Mean Corpuscular Hemoglobin 28.5 pg (25.0-34.0); Mean Corpuscular Hgb Conc 32.1 g/dL (32.0-36.0); Mean Corpuscular Volume 88.6 fL (80.0-100.0); Mean Platelet Volume 10.6 fL (9.4-12.4); Platelet Count 149 K/uL (130-400); RDW Coefficient of Variation 14.6 % (11.5-14.5); RDW Standard Deviation 45.8 fL (36.4-46.3); Red Blood Count 3.69 M/uL (4.63-6.08); White Blood Count 5.62 K/ul (4.8-10.8)
[2022-03-17] MEDS: ASPIRIN 81 MG ECTAB PO SCH (08:20)
[2022-03-17] MEDS: CALCITRIOL 0.25 MCG CAPSULE PO SCH (08:20)
[2022-03-17] MEDS: allopurinoL 300 MG TAB PO SCH (08:21)
[2022-03-17] MEDS: CLOPIDOGREL BISULFATE 75 MG TAB PO SCH (08:21)
[2022-03-17] MEDS: CYANOCOBALAMIN 1000 MCG/ML VIAL IM SCH (08:23)
[2022-03-17] MEDS: HEPARIN SOD 5,000 UNIT/0.5 ML VIAL SQ SCH ×2 (08:28→22:16)
[2022-03-17 08:48] LABS: Albumin Globulin Ratio 1.1 (0.9-2); Albumin Level 3.4 gm/dl (3.4-5.0); BUN Creatinine Ratio 11.7 (10-20); Calcium 9.8 mg/dl (8.5-10.1); Creatinine Clr Calc Pharmacy 41.3 ml/min; Est GFR (African American) 31.6 ml/min; Est GFR (Non-African American) 27.3 ml/min; Globulin 3.1 gm/dl (2.5-4.0); Potassium 3.8 mmol/L (3.5-5.1); Total Protein 6.5 gm/dl (6.0-8.3)
[2022-03-17] MEDS: INSULIN ASPART PER UNIT SC SCH ×4 (08:53→22:14)
[2022-03-17] MEDS: DAPTOmycin 550 MG in SYRINGE 0 ML IV SCH (08:53)
[2022-03-17] MEDS: LANTUS PER UNIT CHARGE SQ SCH ×2 (08:54→22:14)
--- NOTE | 2022-03-17 09:05 | Nephrology Progress Note ---
Date of Service March 17, 2022 Assessment & Plan (1) OLGA (acute kidney injury): Plan: * OLGA likely related to active infection in the setting of ARB therapy * BP remains acceptable. Continue to hold Losartan * Stop IVF and encourage oral hydration * Cr has improved from 2.7 -->2.5. Hold renal US for now * Urinalysis is negative for blood or infection. UPCR 1.0. Urine microscopy negative for ATN casts * Monitor PRP (2) Chronic kidney disease, stage 3 (moderate): Plan: * CKD stage G3b/A3 (moderate impairment). Baseline Cr 2.0 w/ EGFR 39 cc/minute. Urine sediment has been acellular. UPCR 2.0. Renal US revealed 9.5 cm kidneys without obstruction. Renal impairment is due to DKD and hypertensive nephrosclerosis (3) Left foot infection: Plan: * Agree w/ broad spectrum antibiotics. Pharmacy is dose adjusting for renal insufficiency * Await wound culture results Admission and Anticipated Discharge Date Admission Date: March 14, 2022 Subjective Mr. Ayers was evaluated in his hospital room this morning. He denied fever, flank pain, difficulty voiding or uremic symptoms. Review of Systems Constitutional: no fever Eyes: no problem reported Ear, Nose, Mouth, Throat: no problem reported Respiratory: no cough and no dyspnea Cardiovascular: no chest pain and no palpitations Gastrointestinal: no abdominal pain and no diarrhea/loose stools Genitourinary: no dysuria or no urinary hesitancy Physical Exam Constitutional: not in distress Eyes: PERRL, conjunctivae normal, anicteric sclerae ENMT: external ear and nose normal, oropharynx normal Neck: trachea midline, no thyromegaly Respiratory: normal respiratory effort, lungs clear to auscultation Cardiovascular: Rate/Rhythm: regular rate and regular rhythm Gastrointestinal (Abdomen): normal bowel sounds, soft, nontender, no hepatosplenomegaly Results & Data ([facility]) Vital Signs (Past 12 Hours) Vital Signs Temp Pulse Resp BP Pulse Ox O2 Del Method 03/17/22 07:25 36.8 C 68 18 132/67 97 Room Air 03/16/22 22:17 37 C 55 L 16 127/70 96 Room Air Laboratory Results Laboratory Tests 11/27/21 03/16/22 03/17/22 15:50 05:20 07:47 WBC 5.62 Hgb 10.5 L Hct 32.7 L Plt Count 149 Sodium Potassium Chloride Carbon Dioxide BUN Creatinine 2.05 H 2.66 H Uric Acid Calcium Albumin 03/17/22 07:47 WBC Hgb Hct Plt Count Sodium 136 Potassium 3.8 Chloride 106 Carbon Dioxide 23 BUN 30 H Creatinine 2.56 H Uric Acid 5.0 Calcium 9.8 Albumin 3.4 PG Care Time/CCT Total # of Minutes Spent Total Time Spent with Patient: Total time spent is greater than 50% in coordination of care (as documented) at patient's floor/unit and/or counseling patient: Coding Level of Care Code 90267 Subseq Hosp Care Lvl 3 Diagnoses OLGA (acute kidney injury) N17.9 Chronic kidney disease, stage 3 (moderate) N18.3 Left foot infection L08.9
[2022-03-17] MEDS: traMADol HCL 50 MG TABLET PO PRN (12:09)
[2022-03-17] MEDS: ACETAMINOPHEN 325 MG TAB PO PRN (12:54)
--- NOTE | 2022-03-17 21:09 | Hospitalist Progress Note ---
Date of Service March 17, 2022 Assessment & Plan (1) Left foot infection: Plan: Long surgical hx followed by [facility] *Of note, took 20 days to complete 10 days doxy as "bad at remembering to take medications" suspect noncompliance issues baseline Xray with Soft tissue swelling with focus of gas within the lateral ankle. Findings may be secondary to gas-forming organism. Ortho consulted -- NWB to LLE. --Walker rx provided per PT/OT notes (ok for home) --rec f/u [facility] --appt made for , patient/ stating as not for ssurgery long drive --asked to send imaging to [facility], called radiology and had prior CT and recent MRI pushed Awaiting call back from [facility] provider to patient about just scheduling the surgery for f/u. consider doxy PO at d/c given prior +staph however was surface culture consider clinda for better coverage anearobic cx lateral ankle drainage: awaiting results prior to discharge. ortho states patient can be discharged on antibiotics with followup to [facility]. final determination dependent on cultures. despite worsening inflammatory markers, clinically improving, less pain, less swelling, improved mobility. imaging no signs of osteo. Continue broad spectrum abx with Dapto/ZOsyn Blood cultures pending -- NGTD 48 hours Did have improvement in swelling/edema/pain reported, however inflammatory m arkers rechecked and further elevated, initially concerning for osteo * ESR 44--> 64 * CRP 10.95 --> 23.0 * Procal 1.94--> 3.86 MRI obtained 03/15, no evidence for abscess Does have hx gout, increased flare ups. Will check uric acid level Given elevation in Cr (baseline closer to 2) decision to keep inpatient, will consult nephro given Cr 2.66 Continue to monitor labs in AM (2) Open wound of ankle: Plan: -Followed outpatient by [facility] -Had been on Doxycycline per wound care but did not complete the course as prescribed -- took 20 days to complete 10 day course -See left foot infection for plan wound rn consulted, see imaging (3) Hardware complicating wound infection: Plan: -See left foot infection (4) Charcot foot due to diabetes mellitus: Plan: -See left foot infection (5) CAD (coronary artery disease): Plan: ICM w/ LVEF 45% s/p stenting x3 -HIGH MAN aspirin and plavix, carvedilol BID, crestor No CP reported (6) Diabetic peripheral neuropathy associated with type 2 diabetes mellitus: Plan: A1c 7.6 holding home meds, ordered glargine 18u BID, ISS while inpatient Monitor BSGs Check B12 --> 187. IM while inpatient, continue PO at discharge Mag wnl on AM labs (7) Chronic kidney disease, stage 3 (moderate): Plan: Cr at 2.53 on admit, baseline appears to be around 2.0 No issues w/ obstruction/dysuria reported Given 1.5L thus far, did get CT end of month with contrast Cr 2.66 this morning BUN 34 Decreased edema to LE, breathing stable, however BNP checked and mild elevation Hold off on diuretics given Cr, consult nephrology -- appreciate recs Checking uric acid given recurrent flares Follow renal function (8) Dyslipidemia: Plan: -HIGH MAN statin on hold while on Dapto (9) OLGA (acute kidney injury): Plan: -See CKD, IVF ordered suspect recent OLGA from contrast in patient with baseline Cr 2 and got contrast 02/26/22 (10) Hypertension: Plan: -Continue HIGH MAN carvedilol Given dose of losartan AM 03/16 but placed on hold given rise in Cr to 2.6 as above BP 124/77 Monitor (11) Hypothyroidism: Plan: TSH 1.12 this summer, continue Synthroid 112mcg daily (12) 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, with long-term current use of insulin: Plan: -Start with 18 units Glargine BID -Correction factor of 20, Carb ration of 7 -Consistent carb diet monitor BSGs B12 borderline low 187 --> IM replacement ordered while inpatient, continue PO at d/c (13) Gangrene of foot: (14) Anemia: Plan: multifactorial hgb in 10.5 ckd, vit d deficiency MCV normocytic, B12 low as checked for neuropathy and was low ,replacement order folate wnl checked iron studies iron low 16, trans % sat 9% --> ordered Venofer 200mg 2nd dose today Monitor CBC (15) B12 deficiency: Plan: 187 on check IM ordered while inpatient, rec to continue PO at discharge Plan continued inpatient stay on abx monitor inflammatory markers, uric acid level nephrology consulted given OLGA on CKD PT/OT rec return home attempting to arrange close f/u [facility] at discharge . imaging sent. patient awaiting return call Admission and Anticipated Discharge Date Admission Date: March 14, 2022 Subjective 56 yo male reports having improvement of his leg pain. Patient denies any fever, chills. Review of Systems Review of Systems: All systems reviewed & are unremarkable except as noted in HPI & below Physical Exam Physical Exam: General: WD/obese male, chronically ill appearing, no acute distress, at bedside HEENT: head normocephalic, atraumatic, mmm, trachea midline without deviation RespL CTAB, no w/c/r, on room air CV: RRR, +systolic murmur, no pitting edema to calves/calf tenderness GI: +BS, nontender no russell MSK/Neuro: moves all extremities charcot foot to the left, prior surgical scars well healed No warmth. less warmth, edema to medial forefoot and lateral hindfoot (lateral malleolus, chronic reported) IMPROVED, less tender to palpation, scant purulent drainage on dressing, none expressed reduced ROM due to pain/swelling no focal deficit, no slurred speech/facial droop, follows commands +neuropathy to light touch Skin: see above, otherwise, warm dry Results & Data Results & Data ([facility]) Vital Signs (Past 12 Hours) Vital Signs Temp Pulse Resp BP Pulse Ox O2 Del Method 03/17/22 15:12 36.6 C 65 16 125/75 98 Room Air PG Care Time/CCT Total # of Minutes Spent Total Time Spent with Patient: Total time spent is greater than 50% in coordination of care (as documented) at patient's floor/unit and/or counseling patient: Coding Level of Care Code 04957 Subseq Hosp Care Lvl 3 Diagnoses Left foot infection L08.9 Open wound of ankle S91.009A Hardware complicating wound infection T84.7XXA Charcot foot due to diabetes mellitus E11.610 CAD (coronary artery disease) I25.10 Diabetic peripheral neuropathy associated with type 2 diabetes mellitus E11.42 Chronic kidney disease, stage 3 (moderate) N18.3 Dyslipidemia E78.5 OLGA (acute kidney injury) N17.9 Hypertension I10 Hypothyroidism E03.9 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
[2022-03-18] MEDS: PIPERACILLIN/TAZOBACTAM 3.375 GM in DEXTROSE 5% 100 ML IV SCH ×2 (01:29→10:15)
[2022-03-18] MEDS: LEVOTHYROXINE SODIUM 112 MCG TABLET PO SCH (05:51)
[2022-03-18 07:04] LABS: BUN Creatinine Ratio 12.4 (10-20); Creatinine Clr Calc Pharmacy 48.8 ml/min; Est GFR (African American) 38.6 ml/min; Est GFR (Non-African American) 33.3 ml/min; Potassium 3.8 mmol/L (3.5-5.1)
[2022-03-18] MEDS: carvediloL 12.5 MG TAB PO SCH (07:31)
[2022-03-18] MEDS: ACETAMINOPHEN 325 MG TAB PO PRN (07:34)
[2022-03-18] MEDS: CLOPIDOGREL BISULFATE 75 MG TAB PO SCH (08:22)
[2022-03-18] MEDS: CALCITRIOL 0.25 MCG CAPSULE PO SCH (08:23)
[2022-03-18] MEDS: ASPIRIN 81 MG ECTAB PO SCH (08:24)
[2022-03-18] MEDS: allopurinoL 300 MG TAB PO SCH (08:24)
[2022-03-18] MEDS: HEPARIN SOD 5,000 UNIT/0.5 ML VIAL SQ SCH ×2 (08:32→21:26)
[2022-03-18] MEDS: CYANOCOBALAMIN 1000 MCG/ML VIAL IM SCH (08:35)
--- NOTE | 2022-03-18 08:55 | Nephrology Progress Note ---
Date of Service March 18, 2022 Assessment & Plan (1) OLGA (acute kidney injury): Plan: * OLGA likely related to active infection in the setting of ARB therapy * BP remains acceptable. Continue to hold Losartan * Continue to encourage oral hydration * Cr has improved from 2.7 -->2.17. Hold renal US for now * Urinalysis is negative for blood or infection. UPCR 1.0. Urine microscopy negative for ATN casts * Monitor PRP (2) Chronic kidney disease, stage 3 (moderate): Plan: * CKD stage G3b/A3 (moderate impairment). Baseline Cr 2.0 w/ EGFR 39 cc/minute. Urine sediment has been acellular. UPCR 2.0. Renal US revealed 9.5 cm kidneys without obstruction. Renal impairment is due to DKD and hypertensive nephrosclerosis (3) Left foot infection: Plan: * Wound culture w/ coag negative staph * Consider narrowing antibiotic spectrum and converting to oral therapy Admission and Anticipated Discharge Date Admission Date: March 14, 2022 Subjective Mr. Ayers was evaluated in his hospital room this morning. He denied fever, flank pain, difficulty voiding or uremic symptoms. Review of Systems Constitutional: no fever Eyes: no problem reported Ear, Nose, Mouth, Throat: no problem reported Respiratory: no cough and no dyspnea Cardiovascular: no chest pain and no palpitations Gastrointestinal: no abdominal pain and no diarrhea/loose stools Genitourinary: no dysuria or no urinary hesitancy Physical Exam Constitutional: not in distress Eyes: PERRL, conjunctivae normal, anicteric sclerae ENMT: external ear and nose normal, oropharynx normal Neck: trachea midline, no thyromegaly Respiratory: normal respiratory effort, lungs clear to auscultation Cardiovascular: Rate/Rhythm: regular rate and regular rhythm Gastrointestinal (Abdomen): normal bowel sounds, soft, nontender, no hepatosplenomegaly Results & Data ([facility]) Vital Signs (Past 12 Hours) Vital Signs Temp Pulse Resp BP BP Pulse Ox O2 Del Method 03/18/22 07:30 36.8 C 62 17 153/82 H 94 Room Air 03/18/22 06:20 36.9 C 65 14 132/65 95 Room Air 03/17/22 21:39 36.8 C 70 14 122/55 L 97 Room Air Laboratory Results Laboratory Tests 03/17/22 03/18/22 07:47 05:52 Sodium 137 Potassium 3.8 Chloride 105 Carbon Dioxide 24 BUN 27 H Creatinine 2.56 H 2.17 H D Glucose 95 Calcium 10.0 PG Care Time/CCT Total # of Minutes Spent Total Time Spent with Patient: Total time spent is greater than 50% in coordination of care (as documented) at patient's floor/unit and/or counseling patient: Coding Level of Care Code 13905 Subseq Hosp Care Lvl 3 Diagnoses OLGA (acute kidney injury) N17.9 Chronic kidney disease, stage 3 (moderate) N18.3 Left foot infection L08.9
[2022-03-18] MEDS: INSULIN ASPART PER UNIT SC SCH ×4 (09:11→21:27)
[2022-03-18] MEDS: LANTUS PER UNIT CHARGE SQ SCH ×2 (09:11→21:26)
[2022-03-18] MEDS: DAPTOmycin 550 MG in SYRINGE 0 ML IV SCH (09:24)
--- NOTE | 2022-03-18 17:27 | Hospitalist Progress Note ---
Date of Service March 18, 2022 Assessment & Plan (1) Left foot infection: Plan: Long surgical hx followed by [facility] *Of note, took 20 days to complete 10 days doxy as "bad at remembering to take medications" suspect noncompliance issues baseline Xray with Soft tissue swelling with focus of gas within the lateral ankle. Findings may be secondary to gas-forming organism. Ortho consulted -- NWB to LLE. -- [facility] rx provided per PT/OT notes (ok for home) -- rec f/u [facility] -- appt made for , patient/ stating as not for ssurgery long drive -- asked to send imaging to [facility], called radiology and had prior CT and recent MRI pushed Awaiting call back from [facility] provider to patient about just scheduling the surgery for f/u. consider doxy PO at d/c given prior +staph however was surface culture consider clinda for better coverage anaerobic cx lateral ankle drainage: awaiting results prior to discharge. ortho states patient can be discharged on antibiotics with followup to [facility]. final determination dependent on cultures. despite worsening inflammatory markers, clinically improving, less pain, less swelling, improved mobility. imaging no signs of osteo. Continue broad spectrum abx with Dapto/ZOsyn. Awaiting coag negative staph sensitivities. Blood cultures pending -- NGTD 48 hours Did have improvement in swelling/edema/pain reported, however inflammatory markers rechecked and further elevated, initially concerning for osteo * ESR 44--> 64 * CRP 10.95 --> 23.0 * Procal 1.94--> 3.86 MRI obtained 03/15, no evidence for abscess Does have hx gout, increased flare ups. Uri acid level normal. Currently no swelling to suggest this. Given elevation in Cr (baseline closer to 2) decision to keep inpatient Continue to monitor labs in AM (2) Open wound of ankle: Plan: -Followed outpatient by [facility] -Had been on Doxycycline per wound care but did not complete the course as prescribed -- took 20 days to complete 10 day course -See left foot infection for plan wound rn consulted, see imaging (3) Hardware complicating wound infection: Plan: -See left foot infection (4) Charcot foot due to diabetes mellitus: Plan: -See left foot infection (5) CAD (coronary artery disease): Plan: ICM w/ LVEF 45% s/p stenting x3 -[employer] aspirin and plavix, carvedilol BID, crestor No CP reported (6) Diabetic peripheral neuropathy associated with type 2 diabetes mellitus: Plan: A1c 7.6 holding home meds, ordered glargine 18u BID, ISS while inpatient Monitor BSGs Check B12 --> 187. IM while inpatient, continue PO at discharge Mag wnl on AM labs (7) Chronic kidney disease, stage 3 (moderate): Plan: Cr at 2.53 on admit, baseline appears to be around 2.0 No issues w/ obstruction/dysuria reported Given 1.5L thus far, did get CT end of month with contrast Cr 2.66 this morning BUN 34 Decreased edema to LE, breathing stable, however BNP checked and mild elevation Hold off on diuretics given Cr, consult nephrology -- appreciate recs Checking uric acid given recurrent flares Follow renal function (8) Dyslipidemia: Plan: -[employer] statin on hold while on Dapto (9) OLGA (acute kidney injury): Plan: -See CKD, IVF ordered suspect recent OLGA from contrast in patient with baseline Cr 2 and got contrast 02/26/22 (10) Hypertension: Plan: -Continue [employer] carvedilol Given dose of losartan AM 03/16 but placed on hold given rise in Cr to 2.6 as above BP 124/77 Monitor (11) Hypothyroidism: Plan: TSH 1.12 this summer, continue Synthroid 112mcg daily (12) 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, with long-term current use of insulin: Plan: -Start with 18 units Glargine BID -Correction factor of 20, Carb ration of 7 -Consistent carb diet monitor BSGs B12 borderline low 187 --> IM replacement ordered while inpatient, continue PO at d/c (13) Gangrene of foot: (14) Anemia: Plan: multifactorial hgb in 10.5 ckd, vit d deficiency MCV normocytic, B12 low as checked for neuropathy and was low ,replacement order folate wnl checked iron studies iron low 16, trans % sat 9% --> ordered Venofer 200mg 2nd dose today Monitor CBC (15) B12 deficiency: Plan: 187 on check IM ordered while inpatient, rec to continue PO at discharge Plan continued inpatient stay on abx monitor inflammatory markers, uric acid level nephrology consulted given OLGA on CKD PT/OT rec return home attempting to arrange close f/u [facility] at discharge . imaging sent. patient awaiting return call Admission and Anticipated Discharge Date Admission Date: March 14, 2022 Subjective No fever or chills. He reports erythema much improved around ankle. Hypoglycemia today - he reports eating much less than usual at home because he doesn't like the food. Dr jackie Medrano - out till Tuesday. No follow up yet. Planning on scheduling surgery but not around until Tuesday next week. Review of Systems Review of Systems: All systems reviewed & are unremarkable except as noted in Subjective Physical Exam Constitutional: WD/WN, vitals as above Respiratory: normal respiratory effort, lungs clear to auscultation Cardiovascular: RRR, no murmur, no edema Gastrointestinal (Abdomen): normal bowel sounds, soft, nontender, no hepatosplenomegaly Musculoskeletal: no cyanosis or clubbing, extremities motor strength 5/5 Skin: + ulcer (lateral right foot without surrounding cellulitis) Psychiatric: A+Ox3, euthymic affect Results & Data Results & Data ([facility]) Vital Signs (Past 12 Hours) Vital Signs Temp Pulse Resp BP BP Pulse Ox O2 Del Method 03/18/22 14:21 36.6 C 58 L 16 153/78 H 100 Room Air 03/18/22 07:40 Room Air 03/18/22 07:30 36.8 C 62 17 153/82 H 94 Room Air 03/18/22 06:20 36.9 C 65 14 132/65 95 Room Air PG Care Time/CCT Total # of Minutes Spent Total Time Spent with Patient: Total time spent is greater than 50% in coordination of care (as documented) at patient's floor/unit and/or counseling patient: Coding Level of Care Code 77923 Subseq Hosp Care Lvl 2 Diagnoses Left foot infection L08.9 Open wound of ankle S91.009A Hardware complicating wound infection T84.7XXA Charcot foot due to diabetes mellitus E11.610 CAD (coronary artery disease) I25.10 Diabetic peripheral neuropathy associated with type 2 diabetes mellitus E11.42 Chronic kidney disease, stage 3 (moderate) N18.3 Dyslipidemia E78.5 OLGA (acute kidney injury) N17.9 Hypertension I10 Hypothyroidism E03.9 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
[2022-03-18] MEDS ORDERED: cefTRIAXone SODIUM 2,000 MG in DEXTROSE 5% 50 ML IV SCH (18:00)
[2022-03-18] MEDS ORDERED: LANTUS PER UNIT CHARGE SQ SCH (21:00)
[2022-03-18] MEDS: traMADol HCL 50 MG TABLET PO PRN (21:28)
[2022-03-18] MEDS: MELATONIN 3 MG TAB PO PRN (23:57)
[2022-03-18] MEDS: MoRPHine SULFATE 2 MG/ML CARP IV PRN (23:59)
[2022-03-19] MEDS: LEVOTHYROXINE SODIUM 112 MCG TABLET PO SCH (06:08)
[2022-03-19 07:20] LABS: BUN Creatinine Ratio 10.8 (10-20); Calcium 10.4 mg/dl (8.5-10.1); Creatinine Clr Calc Pharmacy 49.7 ml/min; Est GFR (African American) 39.5 ml/min; Est GFR (Non-African American) 34.1 ml/min; Potassium 4.1 mmol/L (3.5-5.1)
[2022-03-19] MEDS: ONDANSETRON INJ 2 MG/ML 2 ML VIAL IV PRN (07:51)
--- NOTE | 2022-03-19 08:48 | Nephrology Progress Note ---
Date of Service March 19, 2022 Assessment & Plan (1) OLGA (acute kidney injury): Plan: * OLGA likely related to active infection in the setting of ARB therapy - resolved * BP remains acceptable. Continue to hold Losartan * Continue to encourage oral hydration * Cr has improved from 2.7 -->2.17. Hold renal US for now * Urinalysis is negative for blood or infection. UPCR 1.0. Urine microscopy negative for ATN casts * If discharge is anticipated, please have patient follow up in my office in 2 weeks. We will consider resuming Losartan therapy. I have placed orders in EMR for nonfasting blood and urine studies to be completed at least 24 hrs prior to his visit * Will sign off. Please call if further Nephrology assistance is needed (2) Chronic kidney disease, stage 3 (moderate): Plan: * CKD stage G3b/A3 (moderate impairment). Baseline Cr 2.0 w/ EGFR 39 cc/minute. Urine sediment has been acellular. UPCR 2.0. Renal US revealed 9.5 cm kidneys without obstruction. Renal impairment is due to DKD and hypertensive nephrosclerosis (3) Left foot infection: Plan: * Wound culture w/ coag negative staph * Consider narrowing antibiotic spectrum and converting to oral therapy Admission and Anticipated Discharge Date Admission Date: March 14, 2022 Subjective Mr. Ayers was evaluated in his hospital room this morning. He denied fever, flank pain, difficulty voiding or uremic symptoms. Review of Systems Constitutional: no fever Eyes: no problem reported Ear, Nose, Mouth, Throat: no problem reported Respiratory: no cough and no dyspnea Cardiovascular: no chest pain and no palpitations Gastrointestinal: no abdominal pain and no diarrhea/loose stools Genitourinary: no dysuria or no urinary hesitancy Physical Exam Constitutional: not in distress Eyes: PERRL, conjunctivae normal, anicteric sclerae ENMT: external ear and nose normal, oropharynx normal Neck: trachea midline, no thyromegaly Respiratory: normal respiratory effort, lungs clear to auscultation Cardiovascular: Rate/Rhythm: regular rate and regular rhythm Gastrointestinal (Abdomen): normal bowel sounds, soft, nontender, no hepatosplenomegaly Results & Data ([facility]) Vital Signs (Past 12 Hours) Vital Signs Temp Pulse Resp BP Pulse Ox O2 Del Method 03/19/22 08:21 36.9 C 67 16 150/80 H 99 Room Air 03/18/22 21:20 Room Air 03/18/22 22:25 36.8 C 65 16 147/81 H 99 Room Air Laboratory Results Laboratory Tests 03/19/22 06:22 Sodium 138 Potassium 4.1 Chloride 104 Carbon Dioxide 28 BUN 23 Creatinine 2.13 H Glucose 86 Calcium 10.4 H Laboratory Tests 03/17/22 07:47 Uric Acid 5.0 Diagnostic Findings 03/16/22 Surface Wound Culture Preliminary Organism 1 Coag negative Staphylococcus Quantity Rare Sens Sensitivities to Follow PG Care Time/CCT Total # of Minutes Spent Total Time Spent with Patient: Total time spent is greater than 50% in coordination of care (as documented) at patient's floor/unit and/or counseling patient: Coding Level of Care Code 70759 Subseq Hosp Care Lvl 3 Diagnoses OLGA (acute kidney injury) N17.9 Chronic kidney disease, stage 3 (moderate) N18.3 Left foot infection L08.9
[2022-03-19] MEDS: INSULIN ASPART PER UNIT SC SCH ×2 (08:50→12:55)
[2022-03-19] MEDS: LANTUS PER UNIT CHARGE SQ SCH (08:50)
[2022-03-19] MEDS: carvediloL 12.5 MG TAB PO SCH (08:52)
[2022-03-19] MEDS: ASPIRIN 81 MG ECTAB PO SCH (08:52)
[2022-03-19] MEDS: CLOPIDOGREL BISULFATE 75 MG TAB PO SCH (08:53)
[2022-03-19] MEDS: allopurinoL 300 MG TAB PO SCH (08:53)
[2022-03-19] MEDS: CALCITRIOL 0.25 MCG CAPSULE PO SCH (08:54)
[2022-03-19] MEDS: CYANOCOBALAMIN 1000 MCG/ML VIAL IM SCH (08:55)
[2022-03-19] MEDS: HEPARIN SOD 5,000 UNIT/0.5 ML VIAL SQ SCH (08:58)
[2022-03-19] MEDS: DAPTOmycin 550 MG in SYRINGE 0 ML IV SCH (09:02)
--- NOTE | 2022-03-19 15:59 | Discharge Summary ---
Date of Service March 19, 2022 Admission HPI Per Admitting Provider Michele is a 56 year old male with a PMH significant for poorly controlled DM II, Charcot foot of the left foot with multiple previous procedures involving hardware placement with chronic left foot wound, CAD, peripheral neuropathy, HTN, hypothyroidism, who presented to the [facility] ED on 03/14/22 with a chief complaint of left foot pain. The patient follows with [facility] for the left foot and is also followed by wound care for the chronic left foot wound. The patient has been treated with Doxycycline outpatient from wound care. The patient was seen in [place] by Orthopedics who had plans for CT of the left foot for further evaluation. They are also planning to take him to the OR for burring down of the later bony prominence of the left foot. In the ED the patient was found to have a temperature of 37.9, he was hemodynamically stable and stable on room air. Labs were remarkable for a Cr of 2.53 (baseline appears to be around 2.0), glucose of 214, xray of the left foot revealed "Soft tissue swelling with focus of gas within the lateral ankle. Findings may be secondary to gas-forming organism.No acute fracture or dislocation identified. Charcot neuropathy with chronic degenerative and postoperative changes as above. Superimposed osteomyelitis would be impossible to exclude however is considered less likely. Evidence of hardware fracture and loosening as above.". The patient was given zosyn, vancomycin, and a 1L NSS bolus. At the time of the exam the patient was resting comfortably in bed in no acute distress with his sitting bedside. They state that he was seen by [place] [facility] last month and had the CT left the left leg completed as previously planned, he has yet to hear back from his surgeon regarding OR plans at this time. He is supposed to keep weight off his left leg and normally uses a cane to ambulate. He and his worked parking for the football game yesterday and then went into the game. While walking out of the stadium he had to put more weight on his left foot in leg as his right leg became too tired and began to cramp. He then experieced significant pain in the left foot compared to baseline. He denies any acute traumatic even yesterday but states that he has had significant pain since and felt as though something new was wrong with it. He states that he was prescribed a 10 day course of antibiotic by wound care last month but it took him about 20 days to complete it as he is bad at remembering to take his medications. He feels as though he has had fever and chills over the past 24 hours and had one episode of vomiting. He denies any other complaints at the current time. Principal Diagnosis Left foot cellulitis Discharge Exam Constitutional WD/WN, vitals as above Respiratory normal respiratory effort, lungs clear to auscultation Cardiovascular RRR, no murmur, no edema Gastrointestinal (Abdomen) normal bowel sounds, soft, nontender, no hepatosplenomegaly Musculoskeletal no cyanosis or clubbing, extremities motor strength 5/5 Skin + ulcer (lateral right foot without surrounding cellulitis) Psychiatric A+Ox3, euthymic affect Discharge Data Allergies Allergy/AdvReac Type Severity Reaction Status Date / Time lisinopril AdvReac Unknown cough Verified 03/14/22 16:38 Consultations 03/14/22 15:10 ED Decision to Admit Stat 03/14/22 16:15 Consult Orthopedic Surgery Routine 03/16/22 12:43 Consult Nephrology Routine Ordered Studies 03/15/22 14:32 MRI Foot [MR foot LT w/o con] Urgent IMPRESSION: No evidence of osteomyelitis or drainable abscess in the foot. Please see MRI ankle for findings in the ankle. 03/15/22 15:17 MRI Ankle [MR ankle LT wo con] Routine IMPRESSION: Extensive degenerative changes which may be related to neuropathic disease. No evidence of osteomyelitis or abscess. Extensive soft tissue swelling may represent cellulitis. Hospital Course (1) Left foot infection: Michele Ayers is a 56 year old male admitted to [facility] from March 14 to 2021 due to left lower extremity cellulitis. This was treated with intravenous daptomycin and Zosyn during his inpatient stay. Blood cultures have been negative after 5 days. Wound culture was positive for coag negative staph. Sensitivities are pending at this time however recommend discharge on oral doxycycline and Keflex. He should follow-up with his orthopedic surgeon at [facility] for ongoing management of this wo und. No osteomyelitis seen on MRI. During his admission his Cr was noted to be worse than his baseline, Cr 2.66 at worst, 2.13 on discharge. He was seen by nephrology and recommended discontinuing losartan at this time. He will follow-up with nephrology as an outpatient. Given his chronic kidney disease do not recommend indomethacin for acute attacks of gout; consider a prednisone prescription instead if this occurs. With regards to his diabetes he required significantly less insulin during his inpatient stay with Lantus down to 20 units daily. Given previous good HbA1C 7.6 and reported inpatient diet significantly reduced compared to his diet at home recommend going back to his usual insulin dosing on discharge as long as his diet returns to normal. He should continue to follow with his PCP for management of this. He was also noted to be B12 deficient and will be started on supplementation for this. 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, with long-term current use of insulin: (13) Gangrene of foot: (14) Anemia: (15) B12 deficiency: Total Time Total Time Spent Total Time Spent (In Minutes): 40 Discharge Plan Discharge Items Patient Disposition: Home - Self-Care Reason For Visit: LEFT FOOT PAIN Discharge Diagnosis: Left foot cellulitis Activity: As commented below Weightbearing: Left non-weightbearing Non-emergency contact: Surgeon Call non-emergency contact if: you have any medication questions and your symptoms worsen Follow-up/Referrals: Richie Lewis MD [Physician] - (2 week follow up) Yunior Kelly MD [Primary Care Provider] - Marlo Medrano M.D. [Outside Practitioners] - 03/18/22 9:15 am (An appointment is arranged with Dr. Medrano in [place] on , March 18. You are to arrive by 9:15 AM. You will went to enter building at [address] and office is located in [address].) Diet: Carb Consistent or DM2 and Heart Healthy Addtl Attending Provider Instructions: You were admitted to [facility] from March 14 to 2021 due to left lower extremity cellulitis. This was treated with intravenous daptomycin and Zosyn (antibiotics) during your inpatient stay. Blood cultures have been negative after 5 days. Wound culture was positive for coag negative staph. Sensitivities are pending at this time however recommend discharge on oral doxycycline and Keflex and we will call you tomorrow for further advice regarding these antibiotics. Please follow-up with your orthopedic surgeon at [facility] for ongoing management of this wound. During your admission your renal function was noted to be worse than his baseline. You were seen by nephrology and recommended discontinuing her losartan at this time. Please follow-up with nephrology as an outpatient. Given your renal function do not recommend indomethacin for acute attacks of gout, consider a prednisone prescription instead if this occurs. Please follow up with nephrology in 2 weeks. With regards to your diabetes you are requiring significantly less insulin during your inpatient stay with your long acting insulin down to 20 units daily. Given previous good HbA1C and you reported your diet here has been significantly reduced recommend going back to your usual insulin dosing on discharge as long as your diet returns to normal. Pending Studies at Discharge: No Stand-Alone Forms: My [facility], Smoking Cessation Medications and DC Order Prescriptions: New doxycycline hyclate 100 mg tablet 100 mg PO BID 7 Days Qty: 14 0RF cephalexin 500 mg tablet 500 mg PO Q6H 7 Days Qty: 28 0RF Continued (DME) Accu-Chek Guide test strips Strip See Rx Instructions .ROUTE .MEDSUPPLY Qty: 400 3RF Rx Instructions: test 4 times daily rosuvastatin 40 mg tablet 40 mg PO QAM Qty: 90 3RF fenofibrate nanocrystallized 48 mg tablet 48 mg PO QAM Qty: 90 3RF (DME) Dexcom G6 Sensor Device See Rx Instructions .ROUTE .MEDSUPPLY Qty: 3 11RF Rx Instructions: change sensor every 10 days (DME) pen needle, diabetic [BD Ultra-Fine Francie Pen Needle] 32 gauge x 5/32" needle See Rx Instructions .ROUTE .MEDSUPPLY Qty: 100 3RF Rx Instructions: use 1 needle daily (DME) Dexcom G6 Transmitter Device See Rx Instructions .ROUTE .MEDSUPPLY Qty: 1 3RF Rx Instructions: Change every 90 days levothyroxine [Euthyrox] 112 mcg tablet 112 mcg PO QAM Qty: 30 2RF insulin aspart U-100 [Novolog U-100 Insulin aspart] 100 unit/mL solution 120 unit .ROUTE DAILY 30 Days Qty: 40 5RF Rx Instructions: 120 units daily; clopidogrel 75 mg tablet 75 mg PO QAM Qty: 90 3RF carvedilol 12.5 mg tablet 12.5 mg PO DAILY Qty: 90 3RF Rx Instructions: must administer with a meal/food allopurinol 300 mg tablet 300 mg PO DAILY Qty: 90 3RF (DME) Dexcom G6 Database Programmer Misc See Rx Instructions .Route Qty: 1 0RF Rx Instructions: As directed with dexcom system calcitriol 0.5 mcg capsule 0.5 mcg PO DAILY nitroglycerin 0.4 mg tablet, sublingual 0.4 mg SL Q5M PRN (Reason: chest pain) Qty: 25 0RF sildenafil 50 mg tablet See Rx Instructions PO DAILY PRN (Reason: sexual activity) Qty: 30 2RF Rx Instructions: 1-2 PO daily PRN; insulin glargine [Basaglar KwikPen U-100 Insulin] 100 unit/mL (3 mL) insulin pen 75 unit subcut QAM (DME) Assure ID Insulin Safety 1 mL 31 gauge x 15/64" syringe See Rx Instructions .Route Rx Instructions: use 3 x daily aspirin 81 mg Tablet,Delayed Release (Dr/Ec) 81 mg PO QAM Discontinued doxycycline hyclate 100 mg tablet 100 mg PO bid Label Comments: patient to begin 02/15/2022 losartan 25 mg tablet 25 mg PO DAILY Qty: 30 5RF indomethacin 50 mg capsule 50 mg PO TID PRN (Reason: gout) Qty: 15 2RF Rx Instructions: administer with food or milk Discharge Orders: Discharge Order (Routine); Ordered 03/19/22 Ordered By: Chris Raza Admission Data Admit Date/Time: 03/14/22 15:31 Attending Provider: Chris Raza Admit Provider: Charan Ren[place] Primary Care Provider: Yunior Kelly Other Providers: Kelvin Lange ; Charan [place] ; Kelvin Meza ; Xochitl Fatima ; Jamari Hendricks ; Maeve Brown ; Alen Miller ; Sallie Turner ; Adamaris Perez ; Kirt Jain ; James Tran ; Sterling Mancera ; Sterling Grant ; Richie Lewis Other Interventions: Discharge Summary Assessment (RN) Last Done: 03/19/22 16:02 Coding Level of Care Code D/C DAY MANAGEMENT >30 MINS Diagnoses Left foot infection L08.9 Open wound of ankle S91.009A Hardware complicating wound infection T84.7XXA Charcot foot due to diabetes mellitus E11.610 CAD (coronary artery disease) I25.10 Diabetic peripheral neuropathy associated with type 2 diabetes mellitus E11.42 Chronic kidney disease, stage 3 (moderate) N18.3 Dyslipidemia E78.5 OLGA (acute kidney injury) N17.9 Hypertension I10 Hypothyroidism E03.9 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
--- NOTE | 2022-03-22 10:13 | Communication Note ---
Date of Service: March 22, 2022 Called patient and changed doxycycline to clindamycin due to sensitivities of coag negative staph. B12 supplementation ordered and discussed with patient
== END 2022-03-19 16:41 | disposition home or self-care (01) | DRG 638 ==
LOC: ED 11:05 → SUATTDRO 15:31 → 3E 15:31